=== PATIENT | male | born 1940 | race Caucasian/White ===

== ENCOUNTER 2018-04-02 14:15 | Emergency (ER) | payer MEDICAID, MEDICARE ==
[2018-04-02] MEDS ORDERED: IPRATROPIUM/ALBUTEROL 0.5-2.5 MG/3 ML AMPUL NEB ONE (14:32)
--- NOTE | 2018-04-02 14:33 | ER Document Report ---
ED General - General Stated Complaint: WEAKNESS Time Seen by Provider: 04/02/18 14:20 Notes: Patient is a 77-year-old male with COPD, CAD that presents to the emergency department for chief complaint of shortness of breath and leg swelling. Patient states he stopped taking his medications several months ago, stating that he did not want to take them, stating that he would might as well than take all these medications. His daughter is with him, he states that he came in because his was "nagging him", but he denies having any pain at this time, he feels mildly short of breath, he has had increased swelling in his lower extremities, making it difficult for him to walk. He has been rather weak according to the patient's daughter as well. He is on medication for depression, which he stopped taking, he is not taking his aspirin, or his antihypertensive medications, he is on nebulizer treatments which she has been doing in addition to his 4 L of oxygen that he wears 24 hours a day for his COPD. Past Medical History: COPD, CAD, hypertension, hyperlipidemia Past Surgical History: PCI with stenting x5 Social History: Former smoker, denies alcohol or drug use. Family History: Reviewed and noncontributory for presenting illness Allergies: Reviewed, see documented allergy list. REVIEW OF SYSTEMS: Other than noted above, the 12 point review of systems was reviewed with the patient and were negative, all pertinent findings are included in the HPI. PHYSICAL EXAMINATION: Vital signs reviewed, nursing noted reviewed. GENERAL: Disheveled appearing male, mild respiratory distress and increased work of breathing HEAD: Atraumatic, normocephalic. EYES: Eyes appear normal, extraocular movements intact, sclera anicteric, conjunctiva are normal. ENT: nares patent, oropharynx clear without exudates. Moist mucous membranes. NECK: Normal range of motion, supple without lymphadenopathy LUNGS: Lung sounds are diminished, with significant inspiratory and expiratory wheezing noted throughout all lung santos. HEART: Heart rate tachycardic, regular rhythm. ABDOMEN: Soft, nontender, normoactive bowel sounds. No rebound, guarding, or rigidity. No masses appreciated. EXTREMITIES: Nontender, good range of motion, bilateral lower extremity edema, equal bilaterally,1+ pitting to the distal tibias. NEUROLOGICAL: No focal neurological deficits. Moves all extremities spontaneously Motor and sensory grossly intact on exam. PSYCH: Normal mood, normal affect. SKIN: Warm, Dry, normal turgor, small areas of excoriations noted to the lower extremities, no signs of cellulitis. - Related Data Allergies/Adverse Reactions: No Known Allergies Allergy (Verified 02/11/12 14:25) Past Medical History - Social History Smoking Status: Current Every Day Smoker Family History: Reviewed & Not Pertinent - Past Medical History Cardiac Medical History: Reports: Hx Heart Attack, Hx Hypercholesterolemia, Hx Hypertension Pulmonary Medical History: Reports: Hx COPD, Hx Pneumonia, Hx Sleep Apnea Denies: Hx Tuberculosis Renal/ Medical History: Reports: Hx Kidney Stones Malignancy Medical History: Reports Hx Colorectal Cancer Past Surgical History: Reports: Hx Bowel Surgery - colon cancer - removed, Hx Cardiac Surgery - 4 stents. Denies: Hx Pacemaker - Immunizations Hx Diphtheria, Pertussis, Tetanus Vaccination: No Physical Exam - Vital signs Vitals: Resp BP Pulse Ox 28 H 135/61 H 86 L 04/02/18 14:28 04/02/18 14:28 04/02/18 14:28 Course - Re-evaluation Re-evalutation: Patient seen and examined vital signs reviewed. Initially hypoxic, but he was only on 2 L, the patient was on 4 L at home, once the patient was placed on his 4 L of oxygen by nasal cannula, he was no longer hypoxic. Laboratory data and imaging were ordered as appropriate for the patient's presenting symptoms and complaint, with consideration of any critical or life threatening conditions that may be associated with their obtained history and exam as noted above. Patient was treated with IV Lasix for his peripheral edema Results were reviewed when available and demonstrated unchanged chest x-ray from prior, COPD changes, without pulmonary edema, blood work demonstrated mild elevation in his creatinine, but when compared to prior, this was not off from his baseline, electrolytes demonstrated a very mild hypernatremia, again but otherwise unremarkable. No leukocytosis. ABG demonstrated well compensated respiratory acidosis, troponin was 0.028, with a very and BNP. The patient was re-evaluated and was stable, on his regular home oxygen and 4 L, I discussed results of testing with the patient's daughter and the patient at bedside, he does not have any medical bold diagnosis although they are asking if he could be admitted overnight, stated the patient needs to be back on his home medications particularly 6, which she was given a prescription for it to start taking again, advised follow-up with his primary care physician which she does have a good relationship with, and advised to call for an appointment tomorrow, the patient did previously have home health care, but his had kicked the home health manager of care out, I strongly encouraged that the patient would need this, or he may need to be placed in a custodial facility, or he should consider looking into palliative care, if he does not want to take these medications. He is alert and oriented x4 at this time, and capable of making these decisions. Evaluation was most consistent with peripheral edema, mild hyponatremia, medical noncompliance. Results were discussed with the patient at this point, after careful consideration I feel that that patient can be discharged from the emergency department, the patient was educated treatments and reasons to return to the emergency department based on their presumed diagnosis as noted above, they were advised to followup with a primary care physician in 2-3 days. Patient was agreeable to plan of care. *Note is created using voice recognition software and may contain spelling, syntax or grammatical errors. Laboratory 04/02/18 04/02/18 04/02/18 14:35 14:35 14:35 WBC 4.7 RBC 4.03 L Hgb 11.7 L Hct 34.4 L MCV 86 MCH 28.9 MCHC 33.8 RDW 14.7 H Plt Count 102 L Total Counted 100 Seg Neutrophils % Not Reportable Seg Neuts % (Manual) 89 H Lymphocytes % Not Reportable Lymphocytes % (Manual) 8 L Monocytes % Not Reportable Monocytes % (Manual) 3 Eosinophils % Not Reportable Eosinophils % (Manual) 0 Basophils % Not Reportable Basophils % (Manual) 0 Absolute Neutrophils Not Reportable Abs Neuts (Manual) 4.2 Absolute Lymphocytes Not Reportable Abs Lymphs (Manual) 0.4 L Absolute Monocytes Not Reportable Abs Monocytes (Manual) 0.1 Absolute Eosinophils Not Reportable Absolute Eos (Manual) 0.0 Absolute Basophils Not Reportable Abs Basophils (Manual) 0.0 Toxic Granulation SLIGHT Toxic Vacuolation PRESENT Platelet Comment ADEQUATE Anisocytosis SLIGHT PT 14.2 INR 1.04 Carbonic Acid HCO3/H2CO3 Ratio ABG pH ABG pCO2 ABG pO2 ABG HCO3 ABG Total CO2 ABG O2 Saturation ABG Base Excess FiO2 Sodium 134.4 L Potassium 4.4 Chloride 92 L Carbon Dioxide 35 H Anion Gap 7 BUN 24 H Creatinine 1.26 H Est GFR ( Amer) > 60 Est GFR (Non-Af Amer) 56 L Glucose 99 POC Glucose Lactic Acid Calcium 7.9 L Total Bilirubin 0.6 Direct Bilirubin 0.4 Neonat Total Bilirubin Not Reportable Neonat Direct Bilirubin Not Reportable Neonat Indirect Bili Not Reportable AST 74 H ALT 30 Alkaline Phosphatase 101 Troponin I NT-Pro-B Natriuret Pep Total Protein 6.4 Albumin 3.6 Urine Color Urine Appearance Urine pH Ur Specific [place] Urine Protein Urine Glucose (UA) Urine Ketones Urine Blood Urine Nitrite Urine Bilirubin Urine Urobilinogen Ur Leukocyte Esterase Urine WBC (Auto) Urine RBC (Auto) Squamous Epi Cells Auto Urine Mucus (Auto) Urine Ascorbic Acid 04/02/18 04/02/18 04/02/18 14:35 14:35 14:51 WBC RBC Hgb Hct MCV MCH MCHC RDW Plt Count Total Counted Seg Neutrophils % Seg Neuts % (Manual) Lymphocytes % Lymphocytes % (Manual) Monocytes % Monocytes % (Manual) Eosinophils % Eosinophils % (Manual) Basophils % Basophils % (Manual) Absolute Neutrophils Abs Neuts (Manual) Absolute Lymphocytes Abs Lymphs (Manual) Absolute Monocytes Abs Monocytes (Manual) Absolute Eosinophils Absolute Eos (Manual) Absolute Basophils Abs Basophils (Manual) Toxic Granulation Toxic Vacuolation Platelet Comment Anisocytosis PT INR Carbonic Acid HCO3/H2CO3 Ratio ABG pH ABG pCO2 ABG pO2 ABG HCO3 ABG Total CO2 ABG O2 Saturation ABG Base Excess FiO2 Sodium Potassium Chloride Carbon Dioxide Anion Gap BUN Creatinine Est GFR ( Amer) Est GFR (Non-Af Amer) Glucose POC Glucose 108 Lactic Acid 1.3 Calcium Total Bilirubin Direct Bilirubin Neonat Total Bilirubin Neonat Direct Bilirubin Neonat Indirect Bili AST ALT Alkaline Phosphatase Troponin I 0.028 NT-Pro-B Natriuret Pep 520 H Total Protein Albumin Urine Color Urine Appearance Urine pH Ur Specific [place] Urine Protein Urine Glucose (UA) Urine Ketones Urine Blood Urine Nitrite Urine Bilirubin Urine Urobilinogen Ur Leukocyte Esterase Urine WBC (Auto) Urine RBC (Auto) Squamous Epi Cells Auto Urine Mucus (Auto) Urine Ascorbic Acid 04/02/18 04/02/18 15:06 15:55 WBC RBC Hgb Hct MCV MCH MCHC RDW Plt Count Total Counted Seg Neutrophils % Seg Neuts % (Manual) Lymphocytes % Lymphocytes % (Manual) Monocytes % Monocytes % (Manual) Eosinophils % Eosinophils % (Manual) Basophils % Basophils % (Manual) Absolute Neutrophils Abs Neuts (Manual) Absolute Lymphocytes Abs Lymphs (Manual) Absolute Monocytes Abs Monocytes (Manual) Absolute Eosinophils Absolute Eos (Manual) Absolute Basophils Abs Basophils (Manual) Toxic Granulation Toxic Vacuolation Platelet Comment Anisocytosis PT INR Carbonic Acid 1.80 H HCO3/H2CO3 Ratio 19:1 ABG pH 7.38 ABG pCO2 59.7 H ABG pO2 104.4 H ABG HCO3 34.8 H ABG Total CO2 36.7 H ABG O2 Saturation 97.6 ABG Base Excess 8.0 FiO2 4L Sodium Potassium Chloride Carbon Dioxide Anion Gap BUN Creatinine Est GFR ( Amer) Est GFR (Non-Af Amer) Glucose POC Glucose Lactic Acid Calcium Total Bilirubin Direct Bilirubin Neonat Total Bilirubin Neonat Direct Bilirubin Neonat Indirect Bili AST ALT Alkaline Phosphatase Troponin I NT-Pro-B Natriuret Pep Total Protein Albumin Urine Color YELLOW Urine Appearance CLOUDY Urine pH 5.0 Ur Specific [place] 1.019 Urine Protein 30 H Urine Glucose (UA) NEGATIVE Urine Ketones NEGATIVE Urine Blood MODERATE H Urine Nitrite NEGATIVE Urine Bilirubin NEGATIVE Urine Urobilinogen 2.0 H Ur Leukocyte Esterase NEGATIVE Urine WBC (Auto) 6 Urine RBC (Auto) 2 Squamous Epi Cells Auto 1 Urine Mucus (Auto) FEW Urine Ascorbic Acid NEGATIVE - Vital Signs Vital signs: Temp Pulse Resp BP Pulse Ox 99.6 F 24 H 127/72 H 97 04/02/18 16:41 04/02/18 18:23 04/02/18 18:23 04/02/18 18:23 - Laboratory Result Diagrams: 04/02/18 14:35 04/02/18 14:35 Laboratory results interpreted by me: 04/02/18 04/02/18 04/02/18 14:35 14:35 14:35 RBC 4.03 L Hgb 11.7 L Hct 34.4 L RDW 14.7 H Plt Count 102 L Seg Neuts % (Manual) 89 H Lymphocytes % (Manual) 8 L Abs Lymphs (Manual) 0.4 L Carbonic Acid ABG pCO2 ABG pO2 ABG HCO3 ABG Total CO2 Sodium 134.4 L Chloride 92 L Carbon Dioxide 35 H BUN 24 H Creatinine 1.26 H Est GFR (Non-Af Amer) 56 L Calcium 7.9 L AST 74 H NT-Pro-B Natriuret Pep 520 H Urine Protein Urine Blood Urine Urobilinogen 04/02/18 04/02/18 15:06 15:55 RBC Hgb Hct RDW Plt Count Seg Neuts % (Manual) Lymphocytes % (Manual) Abs Lymphs (Manual) Carbonic Acid 1.80 H ABG pCO2 59.7 H ABG pO2 104.4 H ABG HCO3 34.8 H ABG Total CO2 36.7 H Sodium Chloride Carbon Dioxide BUN Creatinine Est GFR (Non-Af Amer) Calcium AST NT-Pro-B Natriuret Pep Urine Protein 30 H Urine Blood MODERATE H Urine Urobilinogen 2.0 H Discharge - Discharge Clinical Impression: Peripheral edema, Medical non-compliance, Hyponatremia Condition: Stable Disposition: HOME, SELF-CARE Instructions: Edema, Peripheral ([facility]) Additional Instructions: Please return to the emergency department if you have any worsening, or concern of your symptoms. Please return to the emergency department if you develop chest pain, difficulty breathing, severe abdominal pain, or ongoing vomiting. Please follow-up with your primary care physician in 2-3 days and any other recommended physicians. If prescribed, take all medications as directed. If you have any questions or concerns do not hesitate to return the emergency department for evaluation. Please follow-up with Dr. Ordonez, call for appointment tomorrow, to specifically discuss home health care as I think he would benefit from this jen tly. Prescriptions: Furosemide [Lasix 20 mg Tablet] 20 mg PO DAILY #7 tablet Referrals: ROCK ORDONEZ DO [Primary Care Provider] - Follow up as needed
[2018-04-02] MEDS ORDERED: METHYLPREDNISOLONE INJ 125 MG/2 ML SDV IV ONE (14:57)
[2018-04-02 15:03] LABS: INTERNATIONAL RATION (INR) 1.04; PROTHROMBIN TIME 14.2 SEC (11.4-15.4)
[2018-04-02 15:04] LABS: HEMATOCRIT 34.4 % (37.9-51.0); HEMOGLOBIN 11.7 g/dL (13.5-17.0); MEAN CORPUSCULAR HEMOGLOBIN 28.9 pg (27.0-33.4); MEAN CORPUSCULAR HGB CONC 33.8 g/dL (32.0-36.0); MEAN CORPUSCULAR VOLUME 86 fl (80-97); PLATELET COUNT 102 10^3/uL (150-450); RED BLOOD COUNT 4.03 10^6/uL (4.35-5.55); RED CELL DISTRIBUTION WIDTH 14.7 % (11.5-14.0); WHITE BLOOD COUNT 4.7 10^3/uL (4.0-10.5)
[2018-04-02 15:15] LABS: ALANINE AMINOTRANSFERASE 30 U/L (21-72); ALBUMIN 3.6 g/dL (3.5-5.0); ALKALINE PHOSPHATASE 101 U/L (38-126); ANION GAP 7 (5-19); ASPARTATE AMINO TRANSFERASE 74 U/L (17-59); BILIRUBIN,DIRECT 0.4 mg/dL (0.0-0.4); BILIRUBIN,TOTAL 0.6 mg/dL (0.2-1.3); BLOOD UREA NITROGEN 24 mg/dL (7-20); CALCIUM 7.9 mg/dL (8.4-10.2); CARBON DIOXIDE 35 mmol/L (22-30); CHLORIDE 92 mmol/L (98-107); GLUCOSE 99 mg/dL (75-110); POTASSIUM 4.4 mmol/L (3.6-5.0); SODIUM 134.4 mmol/L (137-145); TOTAL PROTEIN 6.4 g/dL (6.3-8.2)
[2018-04-02 15:20] LABS: ARTERIAL BLOOD FIO2 4L; ARTERIAL BLOOD HCO3 34.8 mmol/L (20-24); ARTERIAL BLOOD O2 SATURATION 97.6 % (94-98); ARTERIAL BLOOD PCO2 59.7 mmHg (35-45); ARTERIAL BLOOD PH 7.38 (7.35-7.45); ARTERIAL BLOOD PO2 104.4 mmHg (80-100); ARTERIAL BLOOD TOTAL CO2 36.7 mmol/L (23-27)
--- NOTE | 2018-04-02 15:24 | RADIOLOGY REPORT (SQ) ---
EXAM DESCRIPTION: CHEST SINGLE VIEW COMPLETED DATE/TIME: 04/02/2018 3:07 pm REASON FOR STUDY: shortness of breath COMPARISON: 2013. NUMBER OF VIEWS: One view. TECHNIQUE: Single frontal radiographic view of the chest acquired. LIMITATIONS: None. FINDINGS: LUNGS AND PLEURA: No opacities, masses or pneumothorax. No pleural effusion. Attenuated bl ood vessels and flattened karen-diaphragms. MEDIASTINUM AND HILAR STRUCTURES: Stable contours. Uncoiled aorta. HEART AND VASCULAR STRUCTURES: Stable heart size, slightly prominent. No congestive failure. BONES: No acute findings. HARDWARE: None in the chest. OTHER: No other significant finding. IMPRESSION: COPD. NO ACUTE RADIOGRAPHIC FINDING IN THE CHEST. TECHNICAL DOCUMENTATION: JOB ID: [id number] [facility]- All Rights Reserved Reading location - IP/workstation name: [email or web address]
[2018-04-02 15:25] LABS: ABSOLUTE LYMPHOCYTES# (MANUAL) 0.4 10^3/uL (0.5-4.7); ABSOLUTE MONOCYTES # (MANUAL) 0.1 10^3/uL (0.1-1.4); ABSOLUTE NEUTROPHILS# (MANUAL) 4.2 10^3/uL (1.7-8.2); BASOPHILS % (MANUAL) 0 % (0-2); EOSINOPHILS % (MANUAL) 0 % (0-6); LYMPHOCYTES % (MANUAL) 8 % (13-45); MONOCYTES % (MANUAL) 3 % (3-13); SEGMENTED NEUTROPHILS % (MAN) 89 % (42-78); TOTAL CELLS COUNTED 100; TROPONIN I 0.028 ng/mL
[2018-04-02 15:26] LABS: ANISOCYTOSIS SLIGHT; PLATELET COMMENT ADEQUATE; TOXIC GRANULATION SLIGHT; TOXIC VACUOLATION PRESENT
[2018-04-02] MEDS ORDERED: ACETAMINOPHEN 325 MG TABLET PO ONE (15:34)
[2018-04-02] MEDS ORDERED: FUROSEMIDE INJ/PF 40 MG/4 ML SDV IV ONE (16:17)
[2018-04-02 16:21] LABS: APPEARANCE,URINE CLOUDY; BILIRUBIN,URINE NEGATIVE (NEGATIVE); COLOR,URINE YELLOW; GLUCOSE, URINE NEGATIVE (NEGATIVE); KETONES,URINE NEGATIVE (NEGATIVE); LEUKOCYTE ESTERASE,URINE NEGATIVE (NEGATIVE); NITRITE,URINE NEGATIVE (NEGATIVE); PROTEIN,URINE 30 mg/dL (NEGATIVE); URINE SPECIFIC GRAVITY 1.019
[2018-04-02 18:29] VITALS: BP 127/72
--- NOTE | 2018-04-03 06:52 | EKG REPORT ---
SEVERITY:- OTHERWISE NORMAL ECG - SINUS TACHYCARDIA : Confirmed by: Kristel Joyner 03-Apr-2018 06:52:14
== END 2018-04-02 18:36 | disposition home or self-care (01) ==
LOC: ER 14:15
DX: R60.9 Edema, unspecified (principal); E87.1 Hypo-osmolality and hyponatremia; R53.1 Weakness; Z91.14 Patient's other noncompliance with medication regimen; J44.9 Chronic obstructive pulmonary disease, unspecified; I25.10 Atherosclerotic heart disease of native coronary artery without angina pectoris; I10 Essential (primary) hypertension; E78.5 Hyperlipidemia, unspecified; F17.200 Nicotine dependence, unspecified, uncomplicated; I25.2 Old myocardial infarction; Z87.442 Personal history of urinary calculi; Z85.038 Personal history of other malignant neoplasm of large intestine
CPT/HCPCS: 93005; 94640; 99285; 96374; 96375; 36415; 87040; 87086; 82962; 82803; 85025; 85610; 80053; 81001; 84484; 83605; 83880; 71045; 93010; A9270 ×2; J1940; J2930; J7620

== ENCOUNTER 2018-05-16 14:34 | Inpatient (IN) | payer MEDICARE ==
[2018-05-16] MEDS ORDERED: NORMAL SALINE 500 ML IV ONE (14:49)
[2018-05-16] MEDS ORDERED: METHYLPREDNISOLONE INJ 125 MG/2 ML SDV IV ONE (14:49)
[2018-05-16] MEDS ORDERED: IPRATROPIUM/ALBUTEROL 0.5-2.5 MG/3 ML AMPUL NEB ONE (14:49)
--- NOTE | 2018-05-16 14:49 | ER Document Report ---
ED General - General Stated Complaint: DIFFICULTY BREATHING Time Seen by Provider: 05/16/18 14:40 Mode of Arrival: Medic Information source: Patient, Emergency Med Personnel Notes: This is a 77-year-old man with a history of COPD, anemia, remote history of colon cancer who is brought in by EMS because of shortness of breath. Patient is normally on 2 L nasal cannula. He has required increasing oxygen at [facility]. Patient is TRAVEL OUTSIDE OF THE [place] IN LAST 30 DAYS: No - HPI Onset: Just prior to arrival Onset/Duration: Gradual Quality of pain: No pain Severity: None Pain Level: Denies Associated symptoms: Shortness of breath. denies: Chest pain, Diarrhea, Fever, Nausea, Vomiting Exacerbated by: Movement Relieved by: Remaining still Similar symptoms previously: Yes Recently seen / treated by doctor: Yes - Related Data Allergies/Adverse Reactions: No Known Allergies Allergy (Verified 02/11/12 14:25) Past Medical History - General Information source: Patient, Relative - Social History Smoking Status: Former Smoker Cigarette use (# per day): No - Quit Chew tobacco use (# tins/day): No Smoking Education Provided: No Frequency of alcohol use: None Drug Abuse: None Lives with: Family Family History: Reviewed & Not Pertinent Patient has suicidal ideation: No Patient has homicidal ideation: No - Past Medical History Cardiac Medical History: Reports: Hx Heart Attack, Hx Hypercholesterolemia, Hx Hypertension Pulmonary Medical History: Reports: Hx COPD, Hx Pneumonia, Hx Sleep Apnea Denies: Hx Tuberculosis Renal/ Medical History: Reports: Hx Kidney Stones. Denies: Hx Peritoneal Dialysis Malignancy Medical History: Reports Hx Colorectal Cancer Past Surgical History: Reports: Hx Bowel Surgery - colon cancer - removed, Hx Cardiac Surgery - 4 stents. Denies: Hx Pacemaker - Immunizations Hx Diphtheria, Pertussis, Tetanus Vaccination: No Review of Systems - Review of Systems Constitutional: denies: Chills, Fever EENT: No symptoms reported Cardiovascular: denies: Chest pain, Palpitations, Heart racing Respiratory: Cough, Short of breath, Wheezing Gastrointestinal: denies: Abdomen distended, Abdominal pain, Diarrhea Genitourinary: No symptoms reported Male Genitourinary: No symptoms reported Musculoskeletal: No symptoms reported Skin: No symptoms reported Hematologic/Lymphatic: No symptoms reported Neurological/Psychological: No symptoms reported Physical Exam - Vital signs Vitals: Pulse Ox 98 05/16/18 14:50 Notes: Physical exam: GENERAL: 77-year-old man, alert and oriented x3, severe respiratory distress HEAD: Atraumatic, normocephalic. EYES: Pupils equal round and reactive to light, extraocular movements intact, sclera anicteric, conjunctiva are normal. ENT: TMs normal, nares patent, oropharynx clear without exudates. Moist mucous membranes. NECK: Normal range of motion, supple without obvious mass or JVD. LUNGS: Use wheezing bilaterally with accessory muscle use. HEART: Regular rate and rhythm without murmurs, rubs or gallops. ABDOMEN: Soft, normoactive bowel sounds. No tenderness to palpation. No guarding, no rebound. No masses appreciated. EXTREMITIES: Normal range of motion, no pitting or edema. No clubbing or cyanosis. NEUROLOGICAL: Cranial nerves II through XII grossly intact. Normal speech, moving all extremities. PSYCH: Normal mood, normal affect. SKIN: Warm, Dry, normal turgor, no rashes or lesions noted. Course - Re-evaluation Re-evalutation: 05/16/18 16:50 Note: EKG shows atrial fibrillation. I question the patient's and she thinks that he has had atrial fibrillation in the past. - Vital Signs Vital signs: Temp Pulse Resp BP Pulse Ox 98.2 F 26 H 108/70 99 05/16/18 14:54 05/16/18 17:48 05/16/18 17:48 05/16/18 17:48 - Laboratory Result Diagrams: 05/16/18 15:05 05/16/18 15:05 Laboratory results interpreted by me: 05/16/18 05/16/18 05/16/18 15:05 15:05 15:05 RBC 3.50 L Hgb 9.7 L Hct 30.0 L RDW 16.4 H Carbon Dioxide 33 H Creatinine 1.38 H Est GFR (Non-Af Amer) 50 L Glucose 120 H Calcium 8.3 L ALT 18 L Creatine Kinase 22 L NT-Pro-B Natriuret Pep 1370 H Albumin 2.9 L - Diagnostic Test Radiology reviewed: Image reviewed, Reports reviewed - Chest x-ray shows infiltrate in the right base - EKG Interpretation by Me Rate: Normal Rhythm: NSR - EKG shows atrial fibrillation with a ventricular rate of 108 Critical Care Note - Critical Care Note Total time excluding time spent on procedures (mins): 60 Discharge - Discharge Clinical Impression: COPD (chronic obstructive pulmonary disease) Qualifiers: COPD type: COPD with acute lower respiratory infection Qualified Code(s): J44.0 - Chronic obstructive pulmonary disease with acute lower respiratory infection Pneumonia Qualifiers: Laterality: right Lung location: lower lobe of lung Condition: Stable Disposition: ADMITTED INPATIENT Admitting Provider: Hospitalist - Dr Bell Unit Admitted: Telemetry
--- NOTE | 2018-05-16 15:19 | RADIOLOGY REPORT (SQ) ---
EXAM DESCRIPTION: CHEST SINGLE VIEW COMPLETED DATE/TIME: 05/16/2018 3:05 pm REASON FOR STUDY: sob COMPARISON: Chest films 04/02/2018, 11/06/2013, 02/11/2012 EXAM PARAMETERS: NUMBER OF VIEWS: One view. TECHNIQUE: Single frontal radiographic view of the chest acquired. RADIATION DOSE: NA LIMITATIONS: None. FINDINGS: LUNGS AND PLEURA: Trace right pleural fluid with right basilar alveolar and interstitial i nfiltrate, pneumonia versus asymmetric pulmonary edema. Left lung grossly clear. No left pleural effusion. No right or left pneumothorax MEDIASTINUM AND HILAR STRUCTURES: No masses. Contour normal. HEART AND VASCULAR STRUCTURES: Heart normal in size. Normal vasculature. BONES: No acute findings. HARDWARE: None in the chest. OTHER: No other significant finding. IMPRESSION: Trace right pleural effusion with right lower lobe alveolar and interstitial infiltrates , edema versus pneumonia TECHNICAL DOCUMENTATION: JOB ID: [id number] [employer]- All Rights Reserved Reading location - IP/workstation name: [email or web address]
[2018-05-16 15:30] LABS: HEMOGLOBIN 9.7 g/dL (13.5-17.0); MEAN CORPUSCULAR HEMOGLOBIN 27.6 pg (27.0-33.4); MEAN CORPUSCULAR HGB CONC 32.3 g/dL (32.0-36.0); MEAN CORPUSCULAR VOLUME 86 fl (80-97); PLATELET COUNT 204 10^3/uL (150-450); RED CELL DISTRIBUTION WIDTH 16.4 % (11.5-14.0); WHITE BLOOD COUNT 8.1 10^3/uL (4.0-10.5)
[2018-05-16 15:49] LABS: ABSOLUTE LYMPHOCYTES# (MANUAL) 1.2 10^3/uL (0.5-4.7); ABSOLUTE MONOCYTES # (MANUAL) 1.1 10^3/uL (0.1-1.4); ABSOLUTE NEUTROPHILS# (MANUAL) 5.8 10^3/uL (1.7-8.2); BASOPHILS % (MANUAL) 0 % (0-2); EOSINOPHILS % (MANUAL) 1 % (0-6); LYMPHOCYTES % (MANUAL) 15 % (13-45); MONOCYTES % (MANUAL) 13 % (3-13); SEGMENTED NEUTROPHILS % (MAN) 71 % (42-78); TOTAL CELLS COUNTED 100
[2018-05-16 15:50] LABS: ANISOCYTOSIS 1+; PLATELET COMMENT ADEQUATE; POIKILOCYTOSIS SLIGHT; TOXIC GRANULATION SLIGHT
[2018-05-16 15:51] LABS: ALANINE AMINOTRANSFERASE 18 U/L (21-72); ALBUMIN 2.9 g/dL (3.5-5.0); ALKALINE PHOSPHATASE 116 U/L (38-126); ANION GAP 10 (5-19); ASPARTATE AMINO TRANSFERASE 20 U/L (17-59); BILIRUBIN,DIRECT 0.3 mg/dL (0.0-0.4); BILIRUBIN,TOTAL 0.4 mg/dL (0.2-1.3); BLOOD UREA NITROGEN 19 mg/dL (7-20); CALCIUM 8.3 mg/dL (8.4-10.2); CARBON DIOXIDE 33 mmol/L (22-30); CHLORIDE 98 mmol/L (98-107); CREATINE KINASE 22 U/L (55-170); GLUCOSE 120 mg/dL (75-110); POTASSIUM 4.3 mmol/L (3.6-5.0); SODIUM 141.4 mmol/L (137-145); TOTAL PROTEIN 6.5 g/dL (6.3-8.2)
[2018-05-16 16:03] LABS: CREATINE KINASE MB 0.42 ng/mL (<4.55); NT PRO BNP 1370 pg/mL (<450)
[2018-05-16 16:12] LABS: TROPONIN I < 0.012 ng/mL
[2018-05-16] MEDS ORDERED: CEFTRIAXONE 1 GM/D5W RTU 1 GM/50 ML RTUPB IV ONE (16:37)
[2018-05-16] MEDS ORDERED: AZITHROMYCIN INJ 500 MG VIAL IV ONE (16:38)
[2018-05-16] MEDS ORDERED: LEVALBUTEROL HCL NEB 0.63 MG/3 ML AMPUL NEB PRN (17:10)
--- NOTE | 2018-05-16 17:30 | PDOC H&P ---
History of Present Illness Admission Date/PCP: ROSANNA LOPEZ MD History of Present Illness: EDIN MAX is a 77 year old male who was sent from [place] ostensibly with shortness of breath, but he says he thinks he was having "an anxiety attack." He denies any fevers. He denies any productive cough. I was told that he was wheezing, but whenever I saw him in the emergency department he was not wheezing at all. He was in atrial fibrillation on the monitor, and I cannot find any history of atrial fibrillation in the record, but he does have EKGs that show frequent PACs. He did get a nebulizer treatment in the ER. He says he feels fine now and does not want to stay. His family has pressured him into staying overnight. Past Medical History Cardiac Medical History: Reports: Myocardial Infarction, Hyperlipidema, Hypertension Pulmonary Medical History: Reports: Chronic Obstructive Pulmonary Disease (COPD) , Pneumonia, Sleep Apnea Denies: Tuberculosis Malignancy Medical History: Reports: Colorectal Cancer Past Surgical History Past Surgical History: Denies: Pacemaker Social History Smoking Status: Never Smoker Frequency of Alcohol Use: None Hx Recreational Drug Use: No Hx Prescription Drug Abuse: No Family History Family History: Reviewed & Not Pertinent Parental Family History Reviewed: Yes - Noncontributory Children Family History Reviewed: Yes - Noncontributory Sibling(s) Family History Reviewed.: Yes - Noncontributory Medication/Allergy Home Medications: Albuterol Sulfate [Albuterol Sulfate 2.5mg/3 mL] 0 mg NEB Q4 PRN 02/11/12 Albuterol Sulfate [Proair HFA] 1 - 2 puff IH Q4 PRN 02/11/12 Aspirin [Ecotrin 81 mg EC Tablet] 81 mg PO DAILY 02/11/12 Cyanocobalamin (Vitamin B-12) [Vitamin B-12 1000 mcg Tablet] 500 mcg PO DAILY 02/11/12 Ferrous Sulfate [Iron] 325 mg PO DAILY 02/11/12 Furosemide [Lasix 20 mg Tablet] 20 mg PO DAILY 02/11/12 Multivitamin [Tab-A-Amber (Multiple Vitamin) Tablet] 1 tab PO DAILY 02/11/12 Simvastatin [Zocor 20 mg Tablet] 20 mg PO QHS 02/11/12 Vitamin E (Dl, Acetate) [Vitamin E 400 Unit Capsule] 400 unit PO DAILY 02/11/12 Gabapentin [Neurontin 300 mg Capsule] 600 mg PO TID 11/06/13 Hydrocodone/Acetaminophen [Vicodin 5-300 mg Tablet] 2 tab PO Q6HP PRN 11/06/13 Metoprolol Tartrate [Lopressor 25 mg Tablet] 25 mg PO BID 11/06/13 Atorvastatin Calcium [Lipitor 20 mg Tablet] 20 mg PO QHS 04/02/18 Carbidopa/Levodopa [Sinemet 25-250 mg Tablet] 1 tab PO TID 04/02/18 Cyproheptadine HCl 4 mg PO BID 04/02/18 Furosemide [Lasix 20 mg Tablet] 20 mg PO DAILY #7 tablet 04/02/18 Metoprolol Succinate [Toprol Xl] 25 mg PO DAILY 04/02/18 Ropinirole HCl 1 tab PO QHS 04/02/18 Trazodone HCl 50 mg PO QHS 04/02/18 Venlafaxine HCl 1 tab PO BID 04/02/18 Allergies/Adverse Reactions: No Known Allergies Allergy (Verified 02/11/12 14:25) Review of Systems All systems: reviewed and no additional remarkable complaints except as stated - 10 point review of systems was conducted with the patient and was negative except as noted above Physical Exam Vital Signs: Temp Pulse Resp BP Pulse Ox 98.2 F 19 95/82 L 100 05/16/18 14:54 05/16/18 16:01 05/16/18 16:00 05/16/18 16:01 Intake & Output 05/15/18 05/16/18 05/17/18 06:59 06:59 06:59 Intake Total 500 Balance 500 Weight 80.739 kg General appearance: PRESENT: no acute distress, cooperative, disheveled, hard of hearing Head exam: PRESENT: atraumatic, normocephalic Eye exam: PRESENT: EOMI, PERRLA. ABSENT: conjunctival injection, nystagmus, scleral icterus Ear exam: PRESENT: normal external ear exam Mouth exam: PRESENT: moist, neck supple Teeth exam: PRESENT: poor dentation Throat exam: ABSENT: post pharyngeal erythema Neck exam: PRESENT: full ROM. ABSENT: carotid bruit, JVD, lymphadenopathy, meningismus, tenderness, thyromegaly Respiratory exam: PRESENT: clear to auscultation vickie, decreased breath sounds, symmetrical, unlabored. ABSENT: accessory muscle use, prolonged expiratory phas, rales, rhonchi, stridor, tachypnea, wheezes Cardiovascular exam: PRESENT: irregular rhythm Vascular exam: PRESENT: normal capillary refill GI/Abdominal exam: PRESENT: normal bowel sounds, soft. ABSENT: distended, guarding, rebound, tenderness Extremities exam: ABSENT: clubbing, pedal edema Musculoskeletal exam: PRESENT: normal inspection. ABSENT: deformity Neurological exam: PRESENT: alert, awake, oriented to person, oriented to place, oriented to situation, CN II-XII grossly intact, other - Tremulous Psychiatric exam: PRESENT: appropriate affect, normal mood Skin exam: PRESENT: dry, warm, other - He had a lot of what looked like actinic keratoses on his face and upper extremities Results Laboratory Results: 05/16/18 15:05 05/16/18 15:05 05/16/18 05/16/18 15:05 15:05 WBC 8.1 RBC 3.50 L Hgb 9.7 L Hct 30.0 L MCV 86 MCH 27.6 MCHC 32.3 RDW 16.4 H Plt Count 204 Seg Neutrophils % Not Reportable Lymphocytes % Not Reportable Monocytes % Not Reportable Eosinophils % Not Reportable Basophils % Not Reportable Absolute Neutrophils Not Reportable Absolute Lymphocytes Not Reportable Absolute Monocytes Not Reportable Absolute Eosinophils Not Reportable Absolute Basophils Not Reportable Sodium 141.4 Potassium 4.3 Chloride 98 Carbon Dioxide 33 H Anion Gap 10 BUN 19 Creatinine 1.38 H Est GFR ( Amer) > 60 Est GFR (Non-Af Amer) 50 L Glucose 120 H Calcium 8.3 L Total Bilirubin 0.4 AST 20 ALT 18 L Alkaline Phosphatase 116 Total Protein 6.5 Albumin 2.9 L 05/16/18 05/16/18 15:05 15:05 Creatine Kinase 22 L CK-MB (CK-2) 0.42 Troponin I < 0.012 NT-Pro-B Natriuret Pep 1370 H Impressions: Chest X-Ray 05/16/18 14:40 IMPRESSION: Trace right pleural effusion with right lower lobe alveolar and interstitial infiltrates, edema versus pneumonia Assessment & Plan - Diagnosis (1) Pneumonia Qualifiers: Laterality: right Lung location: lower lobe of lung Is this a current diagnosis for this admission?: Yes Plan: He had what looked like a possible infiltrate on chest x-ray, and another hears family a great historians, but the history does not really suggest very strongly pneumonia. However because I did not get to see him before he received any treatments, keep him overnight and watch him and put him on some antibiotics. If he does okay overnight I may send him back to [facility] tomorrow. (2) Atrial fibrillation Qualifiers: Atrial fibrillation type: unspecified Qualified Code(s): I48.91 - Unspecified atrial fibrillation Is this a current diagnosis for this admission?: Yes Plan: He is on metoprolol at home and working to continue that, but is not anticoagulated. He received a neb treatment and that may have increased his rate, and with his frequent PACs it may make it look like he is got atrial fibrillation on EKG. We will put him on a bus driver/monitor and watch him overn ight. If his rate is not improved and his rhythm has not gotten a little bit easier to see, due to the above factors and because of his tremulousness, will probably have to look into this little bit further. - Time Time Spent: 50 to 70 Minutes - Inpatient Certification Based on my medical assessment, after consideration of the patient's comorbidities, presenting symptoms, or acuity I expect that the services needed warrant INPATIENT care.: Yes I certify that my determination is in accordance with my understanding of Medicare's requirements for reasonable and necessary INPATIENT services [42 CFR 412.3e].: Yes Medical Necessity: Need Close Monitoring Due to Risk of Patient Decompensation, Need For Continuous Telemetry Monitoring
--- NOTE | 2018-05-16 18:00 | EKG REPORT ---
SEVERITY:- ABNORMAL ECG - ATRIAL FIBRILLATION BORDERLINE PROLONGED QT INTERVAL : Confirmed by: Goldie Adams MD 16-May-2018 18:00:30
[2018-05-16] MEDS ORDERED: METOPROLOL TARTRATE PF/INJ 5 MG/5 ML SDV IV SCH ×2 (21:00→22:00)
[2018-05-16] MEDS: HEPARIN SOD (PORCINE) 5,000 UNIT/ML 1 ML SYRINGE SUBCUT SCH (21:06)
[2018-05-16] MEDS: METOPROLOL TARTRATE 25 MG TABLET PO SCH (21:06)
[2018-05-16] MEDS: ATORVASTATIN CALCIUM 40 MG TABLET PO SCH (21:06)
[2018-05-16] MEDS ORDERED: AZITHROMYCIN 500 MG in DEXTROSE 5%-WATER 250 ML IV ONE (22:00)
[2018-05-16] MEDS ORDERED: METOPROLOL TARTRATE PF/INJ 5 MG/5 ML SDV IV ONE (22:30)
[2018-05-17] MEDS: HEPARIN SOD (PORCINE) 5,000 UNIT/ML 1 ML SYRINGE SUBCUT SCH ×3 (05:03→21:47)
[2018-05-17 06:43] LABS: HEMATOCRIT 26.9 % (37.9-51.0); HEMOGLOBIN 9.1 g/dL (13.5-17.0); MEAN CORPUSCULAR HEMOGLOBIN 28.3 pg (27.0-33.4); MEAN CORPUSCULAR HGB CONC 33.8 g/dL (32.0-36.0); MEAN CORPUSCULAR VOLUME 84 fl (80-97); PLATELET COUNT 200 10^3/uL (150-450); RED BLOOD COUNT 3.21 10^6/uL (4.35-5.55); RED CELL DISTRIBUTION WIDTH 16.3 % (11.5-14.0); WHITE BLOOD COUNT 8.5 10^3/uL (4.0-10.5)
[2018-05-17 07:15] LABS: ANION GAP 6 (5-19); BLOOD UREA NITROGEN 20 mg/dL (7-20); CARBON DIOXIDE 34 mmol/L (22-30); CHLORIDE 99 mmol/L (98-107); GLUCOSE 109 mg/dL (75-110); POTASSIUM 5.1 mmol/L (3.6-5.0); SODIUM 139.1 mmol/L (137-145)
[2018-05-17] MEDS: CEFTRIAXONE 1 GM/D5W RTU 1 GM/50 ML RTUPB IV SCH (10:52)
[2018-05-17] MEDS: METOPROLOL TARTRATE 25 MG TABLET PO SCH ×2 (11:14→21:46)
--- NOTE | 2018-05-17 17:04 | PDOC PROGRESS REPORT ---
Subjective Progress Note for:: 05/17/18 Subjective:: No adverse events overnight. No new complaints. He says he feels pretty good. He tells me today that he does use oxygen at home sometimes on an as-needed basis. He said he is not had very much of a cough. He denies any shortness of breath. No fevers. Reason For Visit: COMMUNITY ACQUIRED PNEUMONIA Physical Exam Vital Signs: Temp Pulse Resp BP Pulse Ox 97.5 F 91 17 104/53 L 100 05/17/18 15:48 05/17/18 15:48 05/17/18 15:48 05/17/18 15:48 05/17/18 15:48 Intake & Output 05/16/18 05/17/18 05/18/18 06:59 06:59 06:59 Intake Total 1140 50 Output Total 400 Balance 740 50 Weight 70 kg General appearance: PRESENT: no acute distress, cooperative, disheveled Teeth exam: PRESENT: poor dentation Respiratory exam: PRESENT: rhonchi - In the right lung, unlabored. ABSENT: accessory muscle use, crackles, prolonged expiratory phas, symmetrical, tachypn ea, wheezes Cardiovascular exam: PRESENT: RRR, +S1, +S2 Vascular exam: PRESENT: normal capillary refill GI/Abdominal exam: PRESENT: normal bowel sounds, soft. ABSENT: distended, guarding, rebound, tenderness Extremities exam: ABSENT: clubbing, pedal edema Musculoskeletal exam: PRESENT: normal inspection. ABSENT: deformity Neurological exam: PRESENT: alert, awake, oriented to person, oriented to place, oriented to situation Psychiatric exam: PRESENT: appropriate affect, normal mood Skin exam: PRESENT: dry, warm Results Laboratory Results: 05/17/18 06:15 05/17/18 06:15 05/17/18 05/17/18 06:15 06:15 WBC 8.5 RBC 3.21 L Hgb 9.1 L Hct 26.9 L MCV 84 MCH 28.3 MCHC 33.8 RDW 16.3 H Plt Count 200 Sodium 139.1 Potassium 5.1 H Chloride 99 Carbon Dioxide 34 H Anion Gap 6 BUN 20 Creatinine 1.14 Est GFR ( Amer) > 60 Est GFR (Non-Af Amer) > 60 Glucose 109 Calcium 8.0 L 05/16/18 05/16/18 05/16/18 15:05 15:05 22:15 Creatine Kinase 22 L CK-MB (CK-2) 0.42 Troponin I < 0.012 < 0.012 NT-Pro-B Natriuret Pep 1370 H Impressions: Chest X-Ray 05/16/18 14:40 IMPRESSION: Trace right pleural effusion with right lower lobe alveolar and interstitial infiltrates, edema versus pneumonia Assessment & Plan - Diagnosis (1) Pneumonia Qualifiers: Laterality: right Lung location: lower lobe of lung Is this a current diagnosis for this admission?: Yes Plan: Continue Rocephin and azithromycin. Were going to repeat a chest x-ray. (2) Atrial fibrillation Qualifiers: Atrial fibrillation type: unspecified Qualified Code(s): I48.91 - Unspecified atrial fibrillation Is this a current diagnosis for this admission?: Yes Plan: Resolved. It may have actually been a sinus tachycardia with frequent PACs. - Time Time Spent with patient: 25-34 minutes
--- NOTE | 2018-05-17 18:18 | RADIOLOGY REPORT (SQ) ---
EXAM DESCRIPTION: CHEST SINGLE VIEW COMPLETED DATE/TIME: 05/17/2018 5:49 pm REASON FOR STUDY: pneumonia COMPARISON: 05/16/2018 EXAM PARAMETERS: NUMBER OF VIEWS: One view. TECHNIQUE: Single frontal radiographic view of the chest acquired. RADIATION DOSE: NA LIMITATIONS: None. FINDINGS: LUNGS AND PLEURA: There appears to be limited residual infiltrate in the right base. MEDIASTINUM AND HILAR STRUCTURES: No masses. Contour normal. HEART AND VASCULAR STRUCTURES: Heart normal in size. Normal vasculature. BONES: No acute findings. HARDWARE: None in the chest. OTHER: No other significant finding. IMPRESSION: Limited residual right lower lobe pneumonia. TECHNICAL DOCUMENTATION: JOB ID: [id number] [employer]- All Rights Reserved Reading location - IP/workstation name: [email or web address]
[2018-05-17] MEDS: ATORVASTATIN CALCIUM 40 MG TABLET PO SCH (21:47)
[2018-05-17] MEDS: AZITHROMYCIN 250 MG TABLET PO SCH (21:47)
[2018-05-18] MEDS: HEPARIN SOD (PORCINE) 5,000 UNIT/ML 1 ML SYRINGE SUBCUT SCH ×3 (05:20→22:46)
[2018-05-18 05:50] LABS: HEMATOCRIT 27.3 % (37.9-51.0); HEMOGLOBIN 9.1 g/dL (13.5-17.0); MEAN CORPUSCULAR HEMOGLOBIN 28.7 pg (27.0-33.4); MEAN CORPUSCULAR HGB CONC 33.2 g/dL (32.0-36.0); MEAN CORPUSCULAR VOLUME 87 fl (80-97); PLATELET COUNT 191 10^3/uL (150-450); RED BLOOD COUNT 3.15 10^6/uL (4.35-5.55); RED CELL DISTRIBUTION WIDTH 16.3 % (11.5-14.0); WHITE BLOOD COUNT 8.2 10^3/uL (4.0-10.5)
[2018-05-18 05:55] LABS: ANION GAP 5 (5-19); BLOOD UREA NITROGEN 25 mg/dL (7-20); CALCIUM 7.9 mg/dL (8.4-10.2); CARBON DIOXIDE 35 mmol/L (22-30); CHLORIDE 99 mmol/L (98-107); GLUCOSE 84 mg/dL (75-110); POTASSIUM 4.4 mmol/L (3.6-5.0); SODIUM 139.2 mmol/L (137-145)
[2018-05-18] MEDS: METOPROLOL TARTRATE 25 MG TABLET PO SCH ×2 (09:47→22:45)
[2018-05-18] MEDS: CEFTRIAXONE 1 GM/D5W RTU 1 GM/50 ML RTUPB IV SCH (09:49)
--- NOTE | 2018-05-18 16:34 | PDOC PROGRESS REPORT ---
Subjective Progress Note for:: 05/18/18 Subjective:: No adverse events overnight. No new complaints. Vital signs been stable. His oxygen saturations have been stable on oxygen. He is not sure how much oxygen he is on outside the hospital when he needs to go on it. Reason For Visit: COMMUNITY ACQUIRED PNEUMONIA Physical Exam Vital Signs: Temp Pulse Resp BP Pulse Ox 97.3 F 81 24 H 106/54 L 92 05/18/18 11:37 05/18/18 14:00 05/18/18 11:37 05/18/18 11:37 05/18/18 11:37 Intake & Output 05/17/18 05/18/18 05/19/18 06:59 06:59 06:59 Intake Total 1140 690 50 Output Total 400 Balance 740 690 50 Weight 70 kg 70.8 kg General appearance: PRESENT: no acute distress, cooperative, disheveled Teeth exam: PRESENT: poor dentation Respiratory exam: PRESENT: rhonchi - In the right lung, unlabored. ABSENT: accessory muscle use, crackles, prolonged expiratory phas, symmetrical, tachypnea, wheezes Cardiovascular exam: PRESENT: RRR, +S1, +S2 Vascular exam: PRESENT: normal capillary refill GI/Abdominal exam: PRESENT: normal bowel sounds, soft. ABSENT: distended, guarding, rebound, tenderness Extremities exam: ABSENT: clubbing, pedal edema Musculoskeletal exam: PRESENT: normal inspection. ABSENT: deformity Neurological exam: PRESENT: alert, awake, oriented to person, oriented to place, oriented to situation Psychiatric exam: PRESENT: appropriate affect, normal mood Skin exam: PRESENT: dry, warm Results Laboratory Results: 05/18/18 04:48 05/18/18 04:48 05/18/18 05/18/18 04:48 04:48 WBC 8.2 RBC 3.15 L Hgb 9.1 L Hct 27.3 L MCV 87 MCH 28.7 MCHC 33.2 RDW 16.3 H Plt Count 191 Sodium 139.2 Potassium 4.4 Chloride 99 Carbon Dioxide 35 H Anion Gap 5 BUN 25 H Creatinine 1.14 Est GFR ( Amer) > 60 Est GFR (Non-Af Amer) > 60 Glucose 84 Calcium 7.9 L 05/16/18 05/16/18 05/16/18 15:05 15:05 22:15 Creatine Kinase 22 L CK-MB (CK-2) 0.42 Troponin I < 0.012 < 0.012 NT-Pro-B Natriuret Pep 1370 H Impressions: Chest X-Ray 05/17/18 00:00 IMPRESSION: Limited residual right lower lobe pneumonia. Assessment & Plan - Diagnosis (1) Pneumonia Qualifiers: Laterality: right Lung location: lower lobe of lung Is this a current diagnosis for this admission?: Yes Plan: Continue Rocephin and azithromycin. Chest x-ray shows improvement in the right lower lobe pneumonia, we will likely switch to oral tomorrow. Case management is working on his discharge planning with his family. (2) Atrial fibrillation Qualifiers: Atrial fibrillation type: unspecified Qualified Code(s): I48.91 - Unspecified atrial fibrillation Is this a current diagnosis for this admission?: Yes Plan: Resolved. It may have actually been a sinus tachycardia with frequent PACs. - Time Time Spent with patient: 15-24 minutes
[2018-05-18] MEDS: AZITHROMYCIN 250 MG TABLET PO SCH (22:45)
[2018-05-18] MEDS: ATORVASTATIN CALCIUM 40 MG TABLET PO SCH (22:45)
[2018-05-19] MEDS: HEPARIN SOD (PORCINE) 5,000 UNIT/ML 1 ML SYRINGE SUBCUT SCH ×2 (05:41→14:25)
[2018-05-19 06:18] LABS: HEMATOCRIT 29.3 % (37.9-51.0); HEMOGLOBIN 9.7 g/dL (13.5-17.0); MEAN CORPUSCULAR HEMOGLOBIN 28.1 pg (27.0-33.4); MEAN CORPUSCULAR HGB CONC 33.1 g/dL (32.0-36.0); MEAN CORPUSCULAR VOLUME 85 fl (80-97); PLATELET COUNT 196 10^3/uL (150-450); RED BLOOD COUNT 3.46 10^6/uL (4.35-5.55); RED CELL DISTRIBUTION WIDTH 16.6 % (11.5-14.0); WHITE BLOOD COUNT 6.5 10^3/uL (4.0-10.5)
[2018-05-19 06:37] LABS: ANION GAP 5 (5-19); BLOOD UREA NITROGEN 24 mg/dL (7-20); CARBON DIOXIDE 37 mmol/L (22-30); CHLORIDE 99 mmol/L (98-107); GLUCOSE 92 mg/dL (75-110); POTASSIUM 4.4 mmol/L (3.6-5.0); SODIUM 140.7 mmol/L (137-145)
[2018-05-19] MEDS: METOPROLOL TARTRATE 25 MG TABLET PO SCH (10:08)
[2018-05-19] MEDS: CEFTRIAXONE 1 GM/D5W RTU 1 GM/50 ML RTUPB IV SCH (10:10)
[2018-05-19 13:27] VITALS: BP 104/49
--- NOTE | 2018-05-19 14:31 | PDOC TRANSFER SUMMARY ---
General - Admit/Disc Date/PCP Admission Date/Primary Care Provider: 05/16/18 17:00 ROCK BE, DO Discharge Date: 05/19/18 - Discharge Diagnosis (1) Pneumonia Is this a current diagnosis for this admission?: Yes Summary: He was brought over here for what he described as a "anxiety attack" it was said to be wheezing pretty bad in the ER but by the time I saw him he was not wheez ing at all. He had a little bit of a shadow on his chest x-ray in the right lower lobe and pneumonia cannot be excluded. We treated him for community- acquired pneumonia and he is done very well. He will finish a few more days of antibiotic back at the shelter facility. (2) Atrial fibrillation Is this a current diagnosis for this admission?: Yes Summary: It was initially concerning in the ER for atrial fibrillation but he has actually a sinus rhythm with frequent PACs and by the next day his rate has slowed down enough that we can see his underlying rhythm, which was NSR. - Additional Information Resuscitation Status: Full Code Discharge Diet: Cardiac Discharge Activity: Supervised Activity Prescriptions: Cefdinir 300 mg PO BID #10 capsule Home Medications: Albuterol Sulfate [Proair HFA Inhalation Aerosol 8.5 gm MDI] 2 puff IH Q4 PRN 05/16/18 Aspirin [Aspirin 81 mg Chewable Tablet] 81 mg PO DAILY 05/16/18 Atorvastatin Calcium [Lipitor 40 mg Tablet] 40 mg PO QHS 05/16/18 Carbidopa/Levodopa [Sinemet 25-250 mg Tablet] 1 each PO TID 05/16/18 Cyproheptadine HCl 4 mg PO BID 05/16/18 Furosemide [Lasix 20 mg Tablet] 20 mg PO QAM 05/16/18 Lisinopril [Zestril] 2.5 mg PO DAILY 05/16/18 Metoprolol Succinate [Toprol Xl 25 mg Tab.sr] 12.5 mg PO BID 05/16/18 Ropinirole HCl [Requip 0.25 mg Tablet] 0.25 mg PO QHS 05/16/18 Tiotropium [place] [Spiriva Handihaler 5 Cap/Kit (18 Mcg/Cap)] 1 cap IH DAILY 05/16/18 Trazodone HCl [Desyrel 50 mg Tablet] 50 mg PO QHS 05/16/18 Venlafaxine HCl [Effexor] 100 mg PO BID 05/16/18 Azithromycin [Zithromax 250 mg Tablet] 500 mg PO QHS tablet 05/19/18 Cefdinir 300 mg PO BID #10 capsule 05/19/18 History of Present Illness Admission Date/PCP: 05/16/18 17:00 ROCK BE DO History of Present Illness: EDIN MAX is a 77 year old male who was sent from [place] ostensibly with shortness of breath, but he says he thinks he was having "an anxiety attack." He denies any fevers. He denies any productive cough. I was told that he was wheezing, but whenever I saw him in the emergency department he was not wheezing at all. He was in atrial fibrillation on the monitor, and I cannot find any history of atrial fibrillation in the record, but he does have EKGs that show frequent PACs. He did get a nebulizer treatment in the ER. He says he feels fine now and does not want to stay. His family has pressured him into staying overnight. Hospital Course Hospital Course: We kept him on his home medications and started him on some antibiotics. He responded very quickly. He will complete a course of Omnicef in a couple of more days of azithromycin back at his shelter facility. He has had no changes to any of his home medications. He said that he is on oxygen sometimes but said not [id number], but he was pretty comfortable here on 2-3 L. His labs and examination were reassuring and he was discharged in good condition. Physical Exam Vital Signs: Temp Pulse Resp BP Pulse Ox 98.5 F 82 18 104/49 L 94 05/19/18 13:00 05/19/18 13:00 05/19/18 13:00 05/19/18 13:00 05/19/18 13:00 Intake & Output 05/18/18 05/19/18 05/20/18 06:59 06:59 06:59 Intake Total 690 272 554 Balance 690 272 554 Weight 70.8 kg 70.2 kg General appearance: PRESENT: no acute distress, cooperative, disheveled Teeth exam: PRESENT: poor dentation Respiratory exam: PRESENT: rhonchi - In the right lung, unlabored. ABSENT: accessory muscle use, crackles, prolonged expiratory phas, symmetrical, tachyp john, wheezes Cardiovascular exam: PRESENT: RRR, +S1, +S2 Vascular exam: PRESENT: normal capillary refill GI/Abdominal exam: PRESENT: normal bowel sounds, soft. ABSENT: distended, guarding, rebound, tenderness Extremities exam: ABSENT: clubbing, pedal edema Musculoskeletal exam: PRESENT: normal inspection. ABSENT: deformity Neurological exam: PRESENT: alert, awake, oriented to person, oriented to place, oriented to situation Psychiatric exam: PRESENT: appropriate affect, normal mood Skin exam: PRESENT: dry, warm Results Laboratory Results: 05/19/18 05:21 05/19/18 05:21 05/19/18 05/19/18 05:21 05:21 WBC 6.5 RBC 3.46 L Hgb 9.7 L Hct 29.3 L MCV 85 MCH 28.1 MCHC 33.1 RDW 16.6 H Plt Count 196 Sodium 140.7 Potassium 4.4 Chloride 99 Carbon Dioxide 37 H Anion Gap 5 BUN 24 H Creatinine 1.03 Est GFR ( Amer) > 60 Est GFR (Non-Af Amer) > 60 Glucose 92 Calcium 8.0 L 05/16/18 05/16/18 05/16/18 15:05 15:05 22:15 Creatine Kinase 22 L CK-MB (CK-2) 0.42 Troponin I < 0.012 < 0.012 NT-Pro-B Natriuret Pep 1370 H Impressions: Chest X-Ray 05/17/18 00:00 IMPRESSION: Limited residual right lower lobe pneumonia. Transfer Plan - Time Spent with Patient Time spent with patient: Less than 30 Minutes Qualifiers - * PATIENT BEING DISCHARGED WITH ANY OF THE FOLLOWING DIAGNOSIS: No
== END 2018-05-19 17:11 | DRG 190 ==
LOC: ER 14:34 → EH 17:00 → 4W 18:25
PROVIDERS: ADMIT Internal Medicine; ATTEND Internal Medicine
DX: J44.0 Chronic obstructive pulmonary disease with (acute) lower respiratory infection (principal); J18.9 Pneumonia, unspecified organism; J44.1 Chronic obstructive pulmonary disease with (acute) exacerbation; I48.91 Unspecified atrial fibrillation; D64.9 Anemia, unspecified; Z99.81 Dependence on supplemental oxygen; Z87.891 Personal history of nicotine dependence; Z85.038 Personal history of other malignant neoplasm of large intestine; Z79.82 Long term (current) use of aspirin; Z79.51 Long term (current) use of inhaled steroids; Z79.899 Other long term (current) drug therapy
CPT/HCPCS: 36415; 71045; 80048; 80053; 80061; 82550; 82553; 82962; 83880; 84484; 85025; 85027; 87040; 93005; 93010; 94640; 96361; 96365; 96375; 99285; J0456; J0696; J1644; J2930; J3490; J7040; J7060; J7620

== ENCOUNTER 2018-05-30 11:15 | Emergency (ER) | payer MEDICARE ==
[2018-05-30 11:24] VITALS: BP 100/53
[2018-05-30] MEDS ORDERED: ACETAMINOPHEN 325 MG TABLET PO ONE (11:41)
--- NOTE | 2018-05-30 11:43 | ER Document Report ---
ED General - General Stated Complaint: FALL,BODY PAIN Time Seen by Provider: 05/30/18 11:31 Primary Care Provider: ROCK BE DO [Primary Care Provider] - Follow up in 3-5 days Notes: Patient is a 77-year-old male that presents to the emergency department for chief complaint of left knee pain after fall. Patient was getting out of bed, and went to sit in a wheelchair and he missed the wheelchair and fell onto his knees, he states that the chair slipped out from underneath him. He denies having any significant pain at this time, some knee tenderness on the left. Denies head injury or neck pain at this time. He states the only thing that hurts is his "pride." Denies any other complaints at this time, denies headache, neck pain, numbness, weakness or tingling in any extremity, denies nausea, vomiting, blurred vision or changes in his vision. Past Medical History: Dementia, hypertension, arthritis Past Surgical History: Reviewed and not pertinent to presentation. Social History: Patient lives in [facility], no current alcohol or drug use or tobacco use, DNR CODE STATUS. Family History: Reviewed and noncontributory for presenting illness Allergies: Reviewed, see documented allergy list. REVIEW OF SYSTEMS: Other than noted above, the 12 point review of systems was reviewed with the patient and were negative, all pertinent findings are included in the HPI. PHYSICAL EXAMINATION: Vital signs reviewed, nursing noted reviewed. GENERAL: Elderly male, at baseline mental status HEAD: Atraumatic, normocephalic. EYES: Eyes appear normal, sclera anicteric, conjunctiva are normal. ENT: Moist mucous membranes. NECK: Normal range of motion, supple without lymphadenopathy LUNGS: Breath sounds clear to auscultation bilaterally and equal. No wheezes rales or rhonchi. HEART: Regular rate and rhythm without murmurs EXTREMITIES: Mild lateral tenderness of the left knee, no joint effusion appreciated, good range of motion, no gross deformities. The rest of the patient's extremity exam is grossly unremarkable and nontender, good range of motion, no pitting or edema. NEUROLOGICAL: No focal neurological deficits. Moves all extremities spontaneously Motor and sensory grossly intact on exam. PSYCH: Normal mood, normal affect. SKIN: Warm, Dry, normal turgor, no rashes or lesions noted on exposed skin TRAVEL OUTSIDE OF THE [place] IN LAST 30 DAYS: No - Related Data Allergies/Adverse Reactions: No Known Allergies Allergy (Verified 02/11/12 14:25) Past Medical History - Social History Smoking Status: Former Smoker Family History: Reviewed & Not Pertinent - Past Medical History Cardiac Medical History: Reports: Hx Heart Attack, Hx Hypercholesterolemia, Hx Hypertension Pulmonary Medical History: Reports: Hx COPD, Hx Pneumonia, Hx Sleep Apnea Denies: Hx Tuberculosis Renal/ Medical History: Reports: Hx Kidney Stones. Denies: Hx Peritoneal Dialysis Malignancy Medical History: Reports Hx Colorectal Cancer Past Surgical History: Reports: Hx Bowel Surgery - colon cancer - removed, Hx Cardiac Surgery - 4 stents. Denies: Hx Pacemaker - Immunizations Hx Diphtheria, Pertussis, Tetanus Vaccination: No Physical Exam - Vital signs Vitals: Temp Pulse BP Pulse Ox 98.0 F 72 100/53 L 98 05/30/18 11:23 05/30/18 11:23 05/30/18 11:23 05/30/18 11:23 Course - Re-evaluation Re-evalutation: Patient seen and examined, vital signs reviewed, patient appears well on exam, was not complaining of any pain, he did have some tenderness to palpation to the left knee, x-rays obtained and were negative for any acute fracture or bony injury. The patient otherwise appears well, no other complaints, will [facility] back to his [facility] facility to follow-up with his primary care. - Vital Signs Vital signs: Temp Pulse Resp BP Pulse Ox 98.0 F 72 100/53 L 98 05/30/18 11:23 05/30/18 11:23 05/30/18 11:23 05/30/18 11:23 Discharge - Discharge Clinical Impression: Knee pain Qualifiers: Chronicity: acute Laterality: left Qualified Code(s): M25.562 - Pain in left knee Fall Qualifiers: Encounter type: initial encounter Qualified Code(s): W19.XXXA - Unspecified fall, initial encounter Condition: Stable Disposition: HOME, SELF-CARE Instructions: Contusion ([facility]) Additional Instructions: Please follow-up with her primary care, take Tylenol if needed for pain in the knee. Referrals: ROCK BE DO [Primary Care Provider] - Follow up in 3-5 days
--- NOTE | 2018-05-30 12:48 | RADIOLOGY REPORT (SQ) ---
EXAM DESCRIPTION: KNEE LEFT 4 VIEW COMPLETED DATE/TIME: 05/30/2018 12:32 pm REASON FOR STUDY: left knee pain, fall COMPARISON: None. NUMBER OF VIEWS: Four views. TECHNIQUE: AP, lateral, and both oblique radiographic images acquired of the left knee. LIMITATIONS: None. FINDINGS: MINERALIZATION: Osteopenic BONES: No acute fracture or dislocation. No worrisome bone lesions. JOINT: Mild medial compartment joint space narrowing without bulky bony spurring. No significant sup rapatellar knee joint effusion. No loose bodies. SOFT TISSUES: No soft tissue swelling. No radio-opaque foreign body. OTHER: No other significant finding. IMPRESSION: Mild medial compartment joint space narrowing. No acute fracture or malalignment. TECHNICAL DOCUMENTATION: JOB ID: [id number] [employer]- All Rights Reserved Reading location - IP/workstation name: [email or web address]
== END 2018-05-30 13:35 | disposition home or self-care (01) ==
LOC: ER 11:15
DX: M25.562 Pain in left knee (principal); W06.XXXA Fall from bed, initial encounter; F03.90 Unspecified dementia, unspecified severity, without behavioral disturbance, psychotic disturbance, mood disturbance, and anxiety; I10 Essential (primary) hypertension; Z87.891 Personal history of nicotine dependence; J44.9 Chronic obstructive pulmonary disease, unspecified
CPT/HCPCS: 99284; 73564; A9270

== ENCOUNTER 2018-05-30 15:39 | Inpatient (IN) | payer MEDICARE ==
[2018-05-30] MEDS ORDERED: LORAZEPAM INJ 2 MG/1 ML VIAL IM ONE (15:56)
--- NOTE | 2018-05-30 16:46 | RADIOLOGY REPORT (SQ) ---
EXAM DESCRIPTION: CHEST SINGLE VIEW COMPLETED DATE/TIME: 05/30/2018 4:31 pm REASON FOR STUDY: sob COMPARISON: Chest films 04/02/2018, 05/16/2018, 05/17/2018 EXAM PARAMETERS: NUMBER OF VIEWS: One view. TECHNIQUE: Single frontal radiographic view of the chest acquired. RADIATION DOSE: NA LIMITATIONS: Motion artifact FINDINGS: LUNGS AND PLEURA: Question few Nupur lines at the right lung base. Upper lobes are hyper lucent from obstructive disease. No pleural effusion or pneumothorax. MEDIASTINUM AND HILAR STRUCTURES: No masses. Contour normal. HEART AND VASCULAR STRUCTURES: Stable borderline cardiomegaly and tortuous uncoiled thoracic aorta BONES: No acute findings. HARDWARE: None in the chest. OTHER: No other significant finding. IMPRESSION: Question Nupur lines at the right lung base. Upper lobes hyperlucent suggesting obstructive disease TECHNICAL DOCUMENTATION: JOB ID: [id number] [employer]- All Rights Reserved Reading location - IP/workstation name: [email or web address]
--- NOTE | 2018-05-30 16:52 | RADIOLOGY REPORT (SQ) ---
EXAM DESCRIPTION: CT HEAD WITHOUT COMPLETED DATE/TIME: 05/30/2018 4:32 pm REASON FOR STUDY: fall COMPARISON: None. TECHNIQUE: Axial images acquired through the brain without intravenous contrast. Images reviewed wi th bone, brain and subdural windows. Additional sagittal and coronal reconstructions were generated. Images stored on PACS. All CT scanners at this facility use dose modulation, iterative reconstruction, and/or weight based d osing when appropriate to reduce radiation dose to as low as reasonably achievable (ALARA). [facility]: Dose Right [facility]: CareDose [facility]: Dose Right [facility]: Teradose 4D [facility]: Smart [employer] RADIATION DOSE: CT Rad equipment meets quality standard of care and radiation dose reduction techniq ues were employed. CTDIvol: 55.2 mGy. DLP: 1084 mGy-cm. mGy. LIMITATIONS: None. FINDINGS: VENTRICLES: Normal size and contour. CEREBRUM: Mild cortical atrophy. No masses. No hemorrhage. No midline shift. No evidence for acut e infarction. Normal wharton/white matter differentiation. No areas of low density in the white matter. CEREBELLUM: There is a small area of encephalomalacia in the would lobe of the cerebellum. No hemorr estela. EXTRAAXIAL SPACES: No fluid collections. No masses. ORBITS AND GLOBE: No intra- or extraconal masses. Normal contour of globe without masses. CALVARIUM: No fracture. PARANASAL SINUSES: No fluid or mucosal thickening. SOFT TISSUES: No mass or hematoma. OTHER: No other significant finding. IMPRESSION: Mild involutional changes of aging with no acute intracranial imaging finding. 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 EVIDENCE OF ACUTE STROKE: NO. COMMENT: Quality ID # 436: Final reports with documentation of one or more dose reduction techniques (e.g., Automated exposure control, adjustment of the mA and/or kV according to patient size, use of iterative reconstruction technique) TECHNICAL DOCUMENTATION: JOB ID: [id number] [employer]- All Rights Reserved Reading location - IP/workstation name: [email or web address]
--- NOTE | 2018-05-30 16:55 | RADIOLOGY REPORT (SQ) ---
EXAM DESCRIPTION: CT CERVICAL SPINE WITHOUT COMPLETED DATE/TIME: 05/30/2018 4:32 pm REASON FOR STUDY: fall COMPARISON: None. TECHNIQUE: Axial images acquired through the cervical spine without intravenous contrast. Images re viewed with lung, soft tissue and bone windows. Reconstructed coronal and sagittal MPR images review ed. Images stored on PACS. All CT scanners at this facility use dose modulation, iterative reconstruction, and/or weight based d osing when appropriate to reduce radiation dose to as low as reasonably achievable (ALARA). [facility]: Dose Right [facility]: CareDose [facility]: Dose Right [facility]: Teradose 4D [facility]: Smart [employer] RADIATION DOSE: CT Rad equipment meets quality standard of care and radiation dose reduction techniq ues were employed. CTDIvol: 9.6 mGy. DLP: 221 mGy-cm. mGy. LIMITATIONS: None. FINDINGS: ALIGNMENT: Anatomic. MINERALIZATION: Normal. VERTEBRAL BODIES: No fractures or dislocation. DISCS: There is mild disc narrowing at C4-5 and C5-6. Small marginal osteophytes are present. There is prominent anterior osteophyte at C6-7. FACETS, LATERAL MASSES, POSTERIOR ELEMENTS: No fractures. No dislocation. No acute findings. HARDWARE: None in the spine. VISUALIZED RIBS: No fractures. LUNG APICES AND SOFT TISSUES: No significant or acute findings. OTHER: No other significant finding. IMPRESSION: Mild degenerative disc disease and spondylosis. No acute finding. TECHNICAL DOCUMENTATION: JOB ID: [id number] Quality ID # [id number]: Final reports with documentation of one or more dose reduction techniques (e.g., Au tomated exposure control, adjustment of the mA and/or kV according to patient size, use of iterative reconstruction technique) 2010 [employer]- All Rights Reserved Reading location - IP/workstation name: [email or web address]
[2018-05-30 17:58] LABS: APPEARANCE,URINE SLIGHTLY-CLOUDY; BILIRUBIN,URINE NEGATIVE (NEGATIVE); COLOR,URINE YELLOW; GLUCOSE, URINE NEGATIVE (NEGATIVE); KETONES,URINE TRACE mg/dL (NEGATIVE); LEUKOCYTE ESTERASE,URINE NEGATIVE (NEGATIVE); NITRITE,URINE NEGATIVE (NEGATIVE); PROTEIN,URINE NEGATIVE (NEGATIVE); URINE SPECIFIC GRAVITY 1.014; UROBILINOGEN,URINE NEGATIVE mg/dL (<2.0)
[2018-05-30 18:00] LABS: ALANINE AMINOTRANSFERASE 18 U/L (21-72); ALBUMIN 3.4 g/dL (3.5-5.0); ALKALINE PHOSPHATASE 115 U/L (38-126); ANION GAP 10 (5-19); ASPARTATE AMINO TRANSFERASE 25 U/L (17-59); BILIRUBIN,DIRECT 0.3 mg/dL (0.0-0.4); BILIRUBIN,TOTAL 0.9 mg/dL (0.2-1.3); BLOOD UREA NITROGEN 20 mg/dL (7-20); CALCIUM 8.9 mg/dL (8.4-10.2); CARBON DIOXIDE 33 mmol/L (22-30); CHLORIDE 93 mmol/L (98-107); GLUCOSE 145 mg/dL (75-110); POTASSIUM 4.9 mmol/L (3.6-5.0); SODIUM 136.1 mmol/L (137-145); TOTAL PROTEIN 6.2 g/dL (6.3-8.2)
[2018-05-30 18:14] LABS: HEMATOCRIT 31.6 % (37.9-51.0); HEMOGLOBIN 10.4 g/dL (13.5-17.0); MEAN CORPUSCULAR HEMOGLOBIN 28.1 pg (27.0-33.4); MEAN CORPUSCULAR HGB CONC 32.8 g/dL (32.0-36.0); MEAN CORPUSCULAR VOLUME 86 fl (80-97); PLATELET COUNT 243 10^3/uL (150-450); RED CELL DISTRIBUTION WIDTH 18.3 % (11.5-14.0); WHITE BLOOD COUNT 28.9 10^3/uL (4.0-10.5)
[2018-05-30 18:39] LABS: ABSOLUTE LYMPHOCYTES# (MANUAL) 0.9 10^3/uL (0.5-4.7); ABSOLUTE MONOCYTES # (MANUAL) 0.9 10^3/uL (0.1-1.4); ABSOLUTE NEUTROPHILS# (MANUAL) 27.2 10^3/uL (1.7-8.2); BASOPHILS % (MANUAL) 0 % (0-2); EOSINOPHILS % (MANUAL) 0 % (0-6); LYMPHOCYTES % (MANUAL) 3 % (13-45); MONOCYTES % (MANUAL) 3 % (3-13); SEGMENTED NEUTROPHILS % (MAN) 94 % (42-78); TOTAL CELLS COUNTED 100
[2018-05-30 18:40] LABS: ANISOCYTOSIS 1+; OVALOCYTES 1+; PLATELET COMMENT ADEQUATE; POIKILOCYTOSIS 1+
[2018-05-30] MEDS ORDERED: RINGERS SOLUTION,LACTATED 1,000 ML IV ONE ×2 (19:02)
[2018-05-30] MEDS ORDERED: CEFTRIAXONE 2 GM/D5W RTU 2 GM/50 ML RTUPB IV ONE (20:02)
[2018-05-30] MEDS ORDERED: VANCOMYCIN HCL INJ 1000 MG VIAL IV ONE (20:02)
[2018-05-30] MEDS ORDERED: ACYCLOVIR SODIUM INJ/PF 500 MG/10 ML SDV IV ONE (20:05)
[2018-05-30] MEDS ORDERED: LIDOCAINE 1% INJ (10 MG/ML) 10 ML MDV INJ ONE (20:11)
[2018-05-30] MEDS ORDERED: MIDAZOLAM 2 MG/2 ML INJ IV ONE (20:12)
[2018-05-30] MEDS ORDERED: HALOPERIDOL LACTATE INJ 5 MG/1 ML VIAL IV ONE (20:17)
[2018-05-30] MEDS ORDERED: HALOPERIDOL LACTATE INJ 5 MG/1 ML VIAL ONE (20:19)
[2018-05-30] MEDS ORDERED: LIDOCAINE 1% INJ-PF (10 MG/ML) 30 ML SDV ONE (20:21)
--- NOTE | 2018-05-30 20:25 | ER Document Report ---
ED General - General TRAVEL OUTSIDE OF THE [place] IN LAST 30 DAYS: No <ELIANA HEATH - Last Filed: 05/30/18 20:56> <[email or web address] - Last Filed: 05/31/18 05:14> - General Chief Complaint: Altered Mental Status Stated Complaint: ALTERED MENTAL STATUS Time Seen by Provider: 05/30/18 15:49 Notes: Patient is a 77-year-old male presents to the emergency department from [facility] for altered mental status. Patient was apparently already seen today in the department for an unwitnessed fall and the patient was trying to get from his bed to his wheelchair to use the restroom. At that time he was noted patient was only complaining of knee pain and had no other complaints. Patient was initially sent back to the nursing facility with a negative knee x-rays. Nursing facility states the patient continues to be altered and not at his mental baseline which is why they called 911 again to have the patient retransferred back to the hospital. Upon arrival the patient is noted to be tachypneic and tachycardic. Patient is rocking back and forth in the bed. He will look at you initially when you ask him something. He is noted to have Parkinson's and dementia on his paperwork. Patient's speech not slurredis although he has not making sense when he speaks. Unsure what the patient is at baseline. (ELIANA HEATH) - Related Data Allergies/Adverse Reactions: No Known Allergies Allergy (Verified 02/11/12 14:25) Past Medical History - Social History Smoking Status: Former Smoker Family History: Reviewed & Not Pertinent Patient has suicidal ideation: No Patient has homicidal ideation: No - Past Medical History Cardiac Medical History: Reports: Hx Heart Attack, Hx Hypercholesterolemia, Hx Hypertension Pulmonary Medical History: Reports: Hx COPD, Hx Pneumonia, Hx Sleep Apnea Denies: Hx Tuberculosis Renal/ Medical History: Reports: Hx Kidney Stones. Denies: Hx Peritoneal Dialysis Malignancy Medical History: Reports Hx Colorectal Cancer Past Surgical History: Reports: Hx Bowel Surgery - colon cancer - removed, Hx Cardiac Surgery - 4 stents. Denies: Hx Pacemaker - Immunizations Hx Diphtheria, Pertussis, Tetanus Vaccination: No <ELIANA HEATH - Last Filed: 05/30/18 20:56> - Vital signs Vitals: Resp 26 H 05/30/18 16:39 Course - Laboratory Result Diagrams: 05/30/18 17:30 05/30/18 17:30 <[email or web address] - Last Filed: 05/30/18 20:56> - Laboratory Result Diagrams: 05/31/18 03:20 05/31/18 03:20 <BRONSON COE - Last Filed: 05/31/18 05:14> - Re-evaluation Re-evalutation: 05/30/18 Patient groaning and grimacing with his eyes closed, he will not respond to me. He is protecting his airway. He is not hypoxic. He is tachycardic. Blood pres sure readings are strange and I am not sure they are accurate. Patient is a leukocytosis of almost 29,000 with elevated neutrophils but no bandemia. He does not have a fever. Lactic acid pending. I called and spoke with patient's at phone #[phone], she states she calls him every day and when she does she has a fairly normal conversation with him, she states she called him this morning and he was confused and could not hold any conversation at all. Patient is not conversational at all at this time, suspect he has had a severe decline in mental status. I discussed with , patient is in fact a DNR, however she states that she and the daughter were talking and they feel that he should not be a DNR and they wish they had not perform this and they want to rescind it. I did inform the that patient appears to be severely ill and she states understanding of this. CAT scan of the head is unremarkable. Because of this I suspect he could have meningitis since he does not have an obvious pneumonia or urinary tract infection, there is no rash, his abdomen seems benign. I did discuss with Dr. Holliday, lumbar puncture was attempted but we could not complete this based on patient's anatomy and complaints. Giving Rocephin, vancomycin, acyclovir to cover for possible meningitis. I asked for manual blood pressure to be performed, this resulted 78/52. Patient has a thready pulse. We placed a smaller cuff on him to fit his size better and now we are getting accurate pressures. He is in fact hypotensive. He was given another 1 L normal saline saline bolus, he already received 1 L of lactated Ringer's earlier. Second peripheral line was placed. 05/30/18 22:25 Blood pressure is now 104/68 with a map of 69. Will call for admission. Dr. Banks recommends CAT scan of the abdomen for possible etiology of the infection. Will perform a CAT scan of the chest to while he is receiving the contrast bolus. CAT scan of the chest shows possible pneumonia, CAT scan of the abdomen shows cholelithiasis without cholecystitis, patient also has a left hip fracture, comminuted. Patient does have bruising externally over the left femoral site. The area is not significantly swollen. Blood pressure started to down trend again, I placed a right femoral central line. Discussed with Dr. Holliday. Attempted to disimpact patient but there was only soft stool and this was at the back of the rectum without easy reaching. Unable to perform. Discussed with Dr. Banks again, patient admitted to the ICU. (BRONSON COE) - Vital Signs Vital signs: Temp Pulse Resp BP Pulse Ox 97.9 F 17 80/44 L 93 05/30/18 17:22 05/31/18 04:47 05/31/18 04:47 05/31/18 04:47 - Laboratory Laboratory results interpreted by me: 05/30/18 05/30/18 05/30/18 17:30 17:30 17:42 WBC 28.9 H RBC 3.70 L Hgb 10.4 L Hct 31.6 L RDW 18.3 H Seg Neuts % (Manual) 94 H Lymphocytes % (Manual) 3 L Abs Neuts (Manual) 27.2 H Sodium 136.1 L Chloride 93 L Carbon Dioxide 33 H Creatinine 1.39 H Est GFR (Non-Af Amer) 50 L Glucose 145 H Lactic Acid ALT 18 L Total Protein 6.2 L Albumin 3.4 L Urine Ketones TRACE H 05/30/18 05/31/18 19:35 00:25 WBC RBC Hgb Hct RDW Seg Neuts % (Manual) Lymphocytes % (Manual) Abs Neuts (Manual) Sodium Chloride Carbon Dioxide Creatinine Est GFR (Non-Af Amer) Glucose Lactic Acid 3.7 H 4.1 H ALT Total Protein Albumin Urine Ketones Procedures - Central Line Right femoral Time completed: 23:15 Central line pre-insertion: Sterile PPE donned, Chloraprep applied, Sterile drapes applied Central line lumen type: Triple Anesthetic type: 1% Lidocaine mL's of anesthesia: 5 Ultrasound guided: Yes Line secured with sutures: Yes Central line post-insertion: Blood return from lumens, Biopatch applied, Sutured, Sterile dressing applied, Position confirmed w/ CXR - with KUB Complications: No <BRONSON COE - Last Filed: 05/31/18 05:14> Critical Care Note - Critical Care Note Total time excluding time spent on procedures (mins): 45 - Altered mental status, septic shock <BRONSON COE - Last Filed: 05/31/18 05:14> - Critical Care Note Comments: Please allow 45 minutes of critical care time excluding procedures for e valuation and management of patient with altered mental status, septic shock. Multiple re-evaluations, time spent discussing with family, time spent interpreting results, time spent in discussing admission to the ICU. (BRONSON COE) Discharge <ELIANA HEATH - Last Filed: 05/30/18 20:56> - Discharge Admitting Provider: Hospitalist Unit Admitted: ICU <BRONSON COE - Last Filed: 05/31/18 05:14> - Discharge Clinical Impression: Altered mental status Qualifiers: Altered mental status type: unspecified Qualified Code(s): R41.82 - Altered mental status, unspecified Leukocytosis Qualifiers: Leukocytosis type: unspecified Qualified Code(s): D72.829 - Elevated white blood cell count, unspecified Sepsis Qualifiers: Sepsis type: sepsis due to unspecified organism Qualified Code(s): A41.9 - Sepsis, unspecified organism Closed left hip fracture Qualifiers: Encounter type: initial encounter Qualified Code(s): S72.002A - Fracture of unspecified part of neck of left femur, initial encounter for closed fracture Condition: Serious Disposition: ADMITTED INPATIENT
[2018-05-30] MEDS ORDERED: NORMAL SALINE 1000 ML 1,000 ML IV ONE (21:35)
[2018-05-30] MEDS ORDERED: VANCOMYCIN HCL INJ 1000 MG VIAL ONE (22:30)
[2018-05-30 22:36] LABS: A TYPE INFLUENZA AG NEGATIVE (NEGATIVE); B INFLUENZA AG NEGATIVE (NEGATIVE)
[2018-05-30] MEDS ORDERED: DEXTROSE 5%-WATER 250 ML with NOREPINEPHRINE BITARTRATE 4 MG IV PRN ×2 (22:44)
--- NOTE | 2018-05-30 23:55 | RADIOLOGY REPORT (SQ) ---
EXAM DESCRIPTION: XR ABDOMEN 1 VIEW (KUB) COMPLETED DATE/TME: 05/30/2018 00:00 CLINICAL HISTORY: 77 years Male, FEMORAL LINE PLACEMENT COMPARISON: None. NUMBER OF VIEWS/TECHNIQUE: 1 FINDINGS: Right femoral line tip at the right paramedial upper pelvis. Intestinal gas pattern is within normal limits. No suspicious calcification. Grossly intact skeletal structures. IMPRESSION: No acute findings. Right femoral line.
--- NOTE | 2018-05-31 00:35 | RADIOLOGY REPORT (SQ) ---
EXAM DESCRIPTION: CT ABDOMEN PELVIS WITH IV CONTRAST, CT CHEST WITH IV CONTRAST COMPLETED DATE/TME: 05/30/2018 22:44 CLINICAL HISTORY: 77 years, Male, fever/sepsis of unknown etiology COMPARISON: None. TECHNIQUE: Axial CT images of the chest, abdomen, and pelvis were obtained after the administration of IV contrast. Sagittal and coronal reformats were performed. [facility] 1718 Images stored on PACS. All CT scanners at this facility use dose modulation, iterative reconstruction, and/or weight based dosing when appropriate to reduce radiation dose to as low as reasonably achievable (ALARA). [facility]: Dose Right [facility]: CareDose [facility]: Dose Right [facility]: Teradose 4D [facility]: [employer] LIMITATIONS: None. FINDINGS: --Chest-- Thoracic aorta: Atherosclerotic calcifications Heart: Atherosclerotic calcifications of the coronary arteries Mediastinum: No pathologic sized middle mediastinal lymphadenopathy. Tracheobronchial tree: Unremarkable. Lungs: Lobar consolidation: There are multiple nodular opacities particularly within the right lower lobe. Pleural effusion: Small left Pneumothorax: Negative. Other: Negative. Bones: Unremarkable. --Abdomen-- Solid abdominal viscera: Liver: Unremarkable. Gallbladder: Cholelithiasis Pancreas: Unremarkable. Spleen: Unremarkable. Adrenal glands: Unremarkable. Right kidney: No hydronephrosis. Vascular calcifications are noted. Left kidney: No hydronephrosis. Vascular calcifications are noted. Urinary bladder: Unremarkable. Abdominal aorta: Atherosclerotic disease without evidence of an aneurysm Peritoneal: Free fluid: None. Free air: None. Other: No pathologic sized lymph nodes in the upper abdomen. Bowel: Stomach: Unremarkable. Small bowel: Unremarkable. Colon: Postsurgical changes. Rectum: Unremarkable. Prostate: Unremarkable. Bones: There is a mildly displaced and comminuted left intertrochanteric fracture. There is a mild chronic appearing compression deformity of L1. IMPRESSION: Tiny nodular opacities particularly within the right lower lobe, likely due to an infectious/inflammatory process. Small left pleural effusion. Cholelithiasis. Mildly displaced and comminuted left intertrochanteric fracture. TECHNICAL DOCUMENTATION: Quality ID # [id number]: Final reports with documentation of one or more dose reduction techniques (e.g., Automated exposure control, adjustment of the mA and/or kV according to patient size, use of iterative reconstruction technique) copyright 2011 [employer]- All Rights Reserved
--- NOTE | 2018-05-31 00:35 | RADIOLOGY REPORT (SQ) ---
EXAM DESCRIPTION: CT ABDOMEN PELVIS WITH IV CONTRAST, CT CHEST WITH IV CONTRAST COMPLETED DATE/TME: 05/30/2018 22:44 CLINICAL HISTORY: 77 years, Male, fever/sepsis of unknown etiology COMPARISON: None. TECHNIQUE: Axial CT images of the chest, abdomen, and pelvis were obtained after the administration of IV contrast. Sagittal and coronal reformats were performed. [facility] 1718 Images stored on PACS. All CT scanners at this facility use dose modulation, iterative reconstruction, and/or weight based dosing when appropriate to reduce radiation dose to as low as reasonably achievable (ALARA). [facility]: Dose Right [facility]: CareDose [facility]: Dose Right [facility]: Teradose 4D [facility]: [employer] LIMITATIONS: None. FINDINGS: --Chest-- Thoracic aorta: Atherosclerotic calcifications Heart: Atherosclerotic calcifications of the coronary arteries Mediastinum: No pathologic sized middle mediastinal lymphadenopathy. Tracheobronchial tree: Unremarkable. Lungs: Lobar consolidation: There are multiple nodular opacities particularly within the right lower lobe. Pleural effusion: Small left Pneumothorax: Negative. Other: Negative. Bones: Unremarkable. --Abdomen-- Solid abdominal viscera: Liver: Unremarkable. Gallbladder: Cholelithiasis Pancreas: Unremarkable. Spleen: Unremarkable. Adrenal glands: Unremarkable. Right kidney: No hydronephrosis. Vascular calcifications are noted. Left kidney: No hydronephrosis. Vascular calcifications are noted. Urinary bladder: Unremarkable. Abdominal aorta: Atherosclerotic disease without evidence of an aneurysm Peritoneal: Free fluid: None. Free air: None. Other: No pathologic sized lymph nodes in the upper abdomen. Bowel: Stomach: Unremarkable. Small bowel: Unremarkable. Colon: Postsurgical changes. Rectum: Unremarkable. Prostate: Unremarkable. Bones: There is a mildly displaced and comminuted left intertrochanteric fracture. There is a mild chronic appearing compression deformity of L1. IMPRESSION: Tiny nodular opacities particularly within the right lower lobe, likely due to an infectious/inflammatory process. Small left pleural effusion. Cholelithiasis. Mildly displaced and comminuted left intertrochanteric fracture. TECHNICAL DOCUMENTATION: Quality ID # [id number]: Final reports with documentation of one or more dose reduction techniques (e.g., Automated exposure control, adjustment of the mA and/or kV according to patient size, use of iterative reconstruction technique) copyright 2011 [employer]- All Rights Reserved
[2018-05-31] MEDS ORDERED: MAG HYDROX/AL HYDROX/SIMETH SUSP 30 ML UDCUP PO PRN (00:56)
[2018-05-31] MEDS ORDERED: MAGNESIUM HYDROXIDE SUSP 30 ML UDCUP PO PRN (00:56)
[2018-05-31] MEDS ORDERED: ACETAMINOPHEN 650 MG SUPP.RECT PR PRN (00:56)
[2018-05-31] MEDS ORDERED: ONDANSETRON HCL INJ/PF 4 MG/2 ML SDV IV PRN ×2 (00:56→11:00)
[2018-05-31] MEDS ORDERED: AZITHROMYCIN INJ 500 MG VIAL IV PRN (01:13)
[2018-05-31] MEDS ORDERED: AZITHROMYCIN 500 MG in DEXTROSE 5%-WATER 250 ML IV ONE (02:00)
[2018-05-31] MEDS ORDERED: ROPINIROLE HCL 0.25 MG TABLET PO ONE (02:00)
[2018-05-31] MEDS ORDERED: ATORVASTATIN CALCIUM 40 MG TABLET PO ONE (02:00)
[2018-05-31] MEDS ORDERED: TRAZODONE HCL 50 MG TABLET PO ONE (02:00)
[2018-05-31] MEDS: NORMAL SALINE 1000 ML 1,000 ML IV PRN ×5 (02:02→21:52)
[2018-05-31] MEDS: IPRATROPIUM/ALBUTEROL 0.5-2.5 MG/3 ML AMPUL NEB SCH ×4 (02:02→20:54)
[2018-05-31] MEDS: FENTANYL CITRATE INJ/PF 100 MCG/2 ML AMPUL IV PRN ×6 (02:02→19:57)
--- NOTE | 2018-05-31 02:09 | PDOC H&P ---
History of Present Illness Admission Date/PCP: 05/31/18 01:22 ROCK BE DO Patient complains of: Altered mental status History of Present Illness: EDIN MAX is a 77 year old male with a past medical history of Parkinson's disease, atrial fibrillation without anticoagulation, COPD, sleep apnea, depression, anxiety, discharged 11 days ago for COPD exacerbation secondary to pneumonia treated with Omnicef and azithromycin. He returns with altered mental status and [facility] a [facility] and subsequently brought to the emergency room for evaluation where he is found to have altered mental status and unable to provide any useful history, hypotension, fever, a shortened left leg and with external rotation, CT chest reveals infiltrate in the right lung base, CT pelvis reveals left-sided hip fracture. He receives 2 L of colloid, empiric antibiotics and referred to the hospitalist for admission. Emergency room department provider contacts patient's who verifies CODE STATUS as full code. Past Medical History Cardiac Medical History: Reports: Myocardial Infarction, Hyperlipidema, Hypertension Pulmonary Medical History: Reports: Chronic Obstructive Pulmonary Disease (COPD), Pneumonia, Sleep Apnea Denies: Tuberculosis Neurological Medical History: Reports: Other - Parkinson's disease Malignancy Medical History: Reports: Colorectal Cancer Psychiatric Medical History: Reports: Depression Past Surgical History Past Surgical History: Denies: Pacemaker Social History Information Source: [facility], [facility] Records Lives with: Intermediate Smoking Status: Former Smoker Frequency of Alcohol Use: None Hx Recreational Drug Use: No Drugs: None Hx Prescription Drug Abuse: No - Advance Directive Resuscitation Status: Full Code Family History Family History: Other - Unobtainable Parental Family History Reviewed: No Children Family History Reviewed: No Sibling(s) Family History Reviewed.: No Medication/Allergy Home Medications: Albuterol Sulfate [Proair HFA Inhalation Aerosol 8.5 gm MDI] 2 puff IH Q4 PRN 05/16/18 Aspirin [Aspirin 81 mg Chewable Tablet] 81 mg PO DAILY 05/16/18 Atorvastatin Calcium [Lipitor 40 mg Tablet] 40 mg PO QHS 05/16/18 Carbidopa/Levodopa [Sinemet 25-250 mg Tablet] 1 each PO TID 05/16/18 Cyproheptadine HCl 4 mg PO BID 05/16/18 Furosemide [Lasix 20 mg Tablet] 20 mg PO QAM 05/16/18 Lisinopril [Zestril] 2.5 mg PO DAILY 05/16/18 Metoprolol Succinate [Toprol Xl 25 mg Tab.sr] 12.5 mg PO BID 05/16/18 Ropinirole HCl [Requip 0.25 mg Tablet] 0.25 mg PO QHS 05/16/18 Tiotropium [place] [Spiriva Handihaler 5 Cap/Kit (18 Mcg/Cap)] 1 cap IH DAILY 05/16/18 Trazodone HCl [Desyrel 50 mg Tablet] 50 mg PO QHS 05/16/18 Venlafaxine HCl [Effexor] 100 mg PO BID 05/16/18 Azithromycin [Zithromax 250 mg Tablet] 500 mg PO QHS tablet 05/19/18 Cefdinir 300 mg PO BID #10 capsule 05/19/18 Allergies/Adverse Reactions: No Known Allergies Allergy (Verified 02/11/12 14:25) Review of Systems ROS unobtainable: Due to mental status Physical Exam Vital Signs: Temp Pulse Resp BP Pulse Ox 97.9 F 22 H 106/59 L 94 05/30/18 17:22 05/31/18 01:32 05/31/18 01:16 05/31/18 01:32 Intake & Output 05/29/18 05/30/18 05/31/18 11:59 11:59 11:59 Intake Total 2049 Balance 2049 Weight 70.2 kg General appearance: PRESENT: disheveled, severe distress, thin. ABSENT: cooperative Head exam: PRESENT: atraumatic, normocephalic Eye exam: PRESENT: conjunctiva pink, EOMI, PERRLA. ABSENT: scleral icterus Ear exam: PRESENT: normal external ear exam Mouth exam: PRESENT: dry mucosa, tongue midline Neck exam: ABSENT: carotid bruit, JVD, lymphadenopathy, thyromegaly Respiratory exam: PRESENT: accessory muscle use, crackles, prolonged expiratory phas, retraction, rhonchi, tachypnea Cardiovascular exam: PRESENT: RRR. ABSENT: diastolic murmur, rubs, systolic murmur Pulses: PRESENT: normal dorsalis pedis pul Vascular exam: PRESENT: normal capillary refill GI/Abdominal exam: PRESENT: normal bowel sounds, soft. ABSENT: distended, guarding, mass, organolmegaly, rebound, tenderness Rectal exam: PRESENT: deferred Extremities exam: PRESENT: full ROM, tenderness - Left lower extremity pain with range of motion. ABSENT: calf tenderness, clubbing, pedal edema Neurological exam: PRESENT: alert, altered, CN II-XII grossly intact. ABSENT: oriented to person, oriented to place, oriented to time, oriented to situation, reflexes normal Psychiatric exam: PRESENT: agitated, anxious Skin exam: PRESENT: skin tears - Left upper extremity Results Laboratory Results: 05/30/18 17:30 05/30/18 17:30 05/30/18 05/30/18 05/30/18 17:30 17:30 17:42 WBC 28.9 H RBC 3.70 L Hgb 10.4 L Hct 31.6 L MCV 86 MCH 28.1 MCHC 32.8 RDW 18.3 H Plt Count 243 Seg Neutrophils % Not Reportable Lymphocytes % Not Reportable Monocytes % Not Reportable Eosinophils % Not Reportable Basophils % Not Reportable Absolute Neutrophils Not Reportable Absolute Lymphocytes Not Reportable Absolute Monocytes Not Reportable Absolute Eosinophils Not Reportable Absolute Basophils Not Reportable Sodium 136.1 L Potassium 4.9 Chloride 93 L Carbon Dioxide 33 H Anion Gap 10 BUN 20 Creatinine 1.39 H Est GFR ( Amer) > 60 Est GFR (Non-Af Amer) 50 L Glucose 145 H Lactic Acid Calcium 8.9 Total Bilirubin 0.9 AST 25 ALT 18 L Alkaline Phosphatase 115 Total Protein 6.2 L Albumin 3.4 L Urine Color YELLOW Urine Appearance SLIGHTLY-CLOUDY Urine pH 6.0 Ur Specific [place] 1.014 Urine Protein NEGATIVE Urine Glucose (UA) NEGATIVE Urine Ketones TRACE H Urine Blood NEGATIVE Urine Nitrite NEGATIVE Ur Leukocyte Esterase NEGATIVE Urine WBC (Auto) 3 Urine RBC (Auto) 4 05/30/18 05/31/18 19:35 00:25 WBC RBC Hgb Hct MCV MCH MCHC RDW Plt Count Seg Neutrophils % Lymphocytes % Monocytes % Eosinophils % Basophils % Absolute Neutrophils Absolute Lymphocytes Absolute Monocytes Absolute Eosinophils Absolute Basophils Sodium Potassium Chloride Carbon Dioxide Anion Gap BUN Creatinine Est GFR ( Amer) Est GFR (Non-Af Amer) Glucose Lactic Acid 3.7 H 4.1 H Calcium Total Bilirubin AST ALT Alkaline Phosphatase Total Protein Albumin Urine Color Urine Appearance Urine pH Ur Specific [place] Urine Protein Urine Glucose (UA) Urine Ketones Urine Blood Urine Nitrite Ur Leukocyte Esterase Urine WBC (Auto) Urine RBC (Auto) Impressions: KUB X-Ray 05/30/18 00:00 IMPRESSION: No acute findings. Right femoral line. Cervical Spine CT 05/30/18 15:49 IMPRESSION: Mild degenerative disc disease and spondylosis. No acute finding. Chest X-Ray 05/30/18 15:49 IMPRESSION: Question Nupur lines at the right lung base. Upper lobes hyperlucent suggesting obstructive disease Head CT 05/30/18 15:49 IMPRESSION: Mild involutional changes of aging with no acute intracranial maria teresa ging finding. 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 EVIDENCE OF ACUTE STROKE: NO. Abdomen/Pelvis CT 05/30/18 22:44 IMPRESSION: Tiny nodular opacities particularly within the right lower lobe, likely due to an infectious/inflammatory process. Small left pleural effusion. Cholelithiasis. Mildly displaced and comminuted left intertrochanteric fracture. TECHNICAL DOCUMENTATION: Quality ID # 436: Final reports with documentation of one or more dose reduction techniques (e.g., Automated exposure control, adjustment of the mA and/or kV according to patient size, use of iterative reconstruction technique) copyright 2010 [employer]- All Rights Reserved Chest CT 05/30/18 22:44 IMPRESSION: Tiny nodular opacities particularly within the right lower lobe, likely due to an infectious/inflammatory process. Small left pleural effusion. Cholelithiasis. Mildly displaced and comminuted left intertrochanteric fracture. TECHNICAL DOCUMENTATION: Quality ID # [id number]: Final reports with documentation of one or more dose reduction techniques (e.g., Automated exposure control, adjustment of the mA and/or kV according to patient size, use of iterative reconstruction technique) copyright 2010 [employer]- All Rights Reserved Assessment & Plan - Diagnosis (1) Pneumonia Qualifiers: Laterality: right Lung location: lower lobe of lung Is this a current diagnosis for this admission?: Yes Plan: Right lung base infiltrate. Formally on Omnicef and azithromycin will change to cefepime and vancomycin given healthcare association. Follow-up CBC and blood culture (2) Sepsis Qualifiers: Sepsis type: sepsis due to unspecified organism Qualified Code(s): A41.9 - Sepsis, unspecified organism Is this a current diagnosis for this admission?: Yes Plan: Secondary to #1, IV fluid challenge with pressors as needed (3) Closed left hip fracture Qualifiers: Encounter type: initial encounter Qualified Code(s): S72.002A - Fracture of unspecified part of neck of left femur, initial encounter for closed fracture Is this a current diagnosis for this admission?: Yes Plan: Orthopedic surgery consulted, currently decompensated from pneumonia with sepsis complicated by encephalopathy. Postpone surgery pending improvement of respiratory status. (4) Encephalopathy acute Is this a current diagnosis for this admission?: Yes Plan: Likely secondary to #1, complicated by Parkinson's disease. Consider hospice consult given comorbidities if not significantly improved over the next 48 hours. - Time Time Spent: 50 to 70 Minutes
[2018-05-31] MEDS ORDERED: VANCOMYCIN HCL 1,250 MG in DEXTROSE 5%-WATER 250 ML IV ONE (02:10)
[2018-05-31] MEDS ORDERED: VANCOMYCIN HCL 0 MG in DEXTROSE 5%-WATER 250 ML IV NR (02:15)
[2018-05-31] MEDS ORDERED: NA PHOS,M-B/NA PHOS,DI-BA (ADULT) 133 ML ENEMA PR ONE ×2 (03:00→21:31)
[2018-05-31] MEDS ORDERED: CEFEPIME 1 GM/D5W RTU 1 GM/50 ML RTUPB IV ONE (03:00)
[2018-05-31 03:44] LABS: HEMATOCRIT 23.5 % (37.9-51.0); MEAN CORPUSCULAR HEMOGLOBIN 28.1 pg (27.0-33.4); MEAN CORPUSCULAR HGB CONC 32.9 g/dL (32.0-36.0); MEAN CORPUSCULAR VOLUME 86 fl (80-97); PLATELET COUNT 148 10^3/uL (150-450); RED BLOOD COUNT 2.75 10^6/uL (4.35-5.55); RED CELL DISTRIBUTION WIDTH 17.8 % (11.5-14.0); WHITE BLOOD COUNT 15.2 10^3/uL (4.0-10.5)
[2018-05-31 03:50] LABS: HEMOGLOBIN 7.7 g/dL (13.5-17.0)
[2018-05-31 03:52] LABS: ANION GAP 9 (5-19); BLOOD UREA NITROGEN 23 mg/dL (7-20); CALCIUM 7.7 mg/dL (8.4-10.2); CARBON DIOXIDE 30 mmol/L (22-30); CHLORIDE 96 mmol/L (98-107); GLUCOSE 138 mg/dL (75-110); POTASSIUM 5.6 mmol/L (3.6-5.0); SODIUM 134.9 mmol/L (137-145)
[2018-05-31 04:21] LABS: ABSOLUTE LYMPHOCYTES# (MANUAL) 0.3 10^3/uL (0.5-4.7); ABSOLUTE MONOCYTES # (MANUAL) 0.8 10^3/uL (0.1-1.4); ABSOLUTE NEUTROPHILS# (MANUAL) 14.1 10^3/uL (1.7-8.2); BAND NEUTROPHILS % (MANUAL) 1 % (3-5); BASOPHILS % (MANUAL) 0 % (0-2); EOSINOPHILS % (MANUAL) 0 % (0-6); LYMPHOCYTES % (MANUAL) 2 % (13-45); MONOCYTES % (MANUAL) 5 % (3-13); SEGMENTED NEUTROPHILS % (MAN) 92 % (42-78); TOTAL CELLS COUNTED 100
[2018-05-31 04:22] LABS: HYPOCHROMASIA 1+; PLATELET COMMENT ADEQUATE
[2018-05-31 04:48] LABS: CREATINE KINASE MB 1.23 ng/mL (<4.55)
[2018-05-31 04:51] LABS: TROPONIN I 0.038 ng/mL
[2018-05-31] MEDS: HEPARIN SOD (PORCINE) 5,000 UNIT/ML 1 ML SYRINGE SUBCUT SCH ×4 (05:28→23:32)
[2018-05-31] MEDS ORDERED: LANSOPRAZOLE 30 MG TAB.RAP.DR PO SCH (06:00)
[2018-05-31] MEDS ORDERED: NORMAL SALINE 1000 ML 1,000 ML IV ONE (06:00)
[2018-05-31] MEDS ORDERED: DEXTROSE 5%-WATER 250 ML with NOREPINEPHRINE BITARTRATE 4 MG IV PRN ×2 (06:28)
[2018-05-31] MEDS ORDERED: NOREPINEPHRINE BITARTRATE INJ/PF 4 MG/4 ML SDV IV ONE (06:38)
[2018-05-31] MEDS: KETOROLAC TROMETHAMINE INJ/PF 30 MG/1 ML SDV IV PRN ×2 (06:56→19:58)
--- NOTE | 2018-05-31 07:32 | PDOC CONSULTATION ---
Consultation Consult Date: 05/31/18 Consult reason:: Left intratrochanteric femur fracture History of Present Illness Admission Date/PCP: 05/31/18 01:22 ROCK BE DO History of Present Illness: EDIN MAX is a 77 year old male Patient is a 77-year-old white male with a myriad of medical comorbidities who was recently discharged from the hospital following a COPD flare. Is brought to the emergency room today with recurrent issues of COPD, sepsis, and a new diagnosis of a left intratrochanteric femur fracture. Orthopedics is consulted for the femur fracture. Past Medical History Cardiac Medical History: Reports: Myocardial Infarction, Hyperlipidema, Hypertension Pulmonary Medical History: Reports: Chronic Obstructive Pulmonary Disease (COPD ), Pneumonia, Sleep Apnea Denies: Tuberculosis Neurological Medical History: Reports: Other - Parkinson's disease Malignancy Medical History: Reports: Colorectal Cancer Psychiatric Medical History: Reports: Depression Past Surgical History Past Surgical History: Denies: Pacemaker Social History Information Source: [facility] Records Lives with: Snf Smoking Status: Former Smoker Frequency of Alcohol Use: None Hx Recreational Drug Use: No Drugs: None Hx Prescription Drug Abuse: No - Advance Directive Resuscitation Status: Full Code Family History Family History: Reviewed & Not Pertinent, Other - Unobtainable Parental Family History Reviewed: No Children Family History Reviewed: Unknown Sibling(s) Family History Reviewed.: Unknown Medication/Allergy Home Medications: Albuterol Sulfate [Proair HFA Inhalation Aerosol 8.5 gm MDI] 2 puff IH Q4 PRN 05/16/18 Aspirin [Aspirin 81 mg Chewable Tablet] 81 mg PO DAILY 05/16/18 Atorvastatin Calcium [Lipitor 40 mg Tablet] 40 mg PO QHS 05/16/18 Carbidopa/Levodopa [Sinemet 25-250 mg Tablet] 1 each PO TID 05/16/18 Cyproheptadine HCl 4 mg PO BID 05/16/18 Furosemide [Lasix 20 mg Tablet] 20 mg PO QAM 05/16/18 Lisinopril [Zestril] 2.5 mg PO DAILY 05/16/18 Metoprolol Succinate [Toprol Xl 25 mg Tab.sr] 12.5 mg PO BID 05/16/18 Ropinirole HCl [Requip 0.25 mg Tablet] 0.25 mg PO QHS 05/16/18 Tiotropium [place] [Spiriva Handihaler 5 Cap/Kit (18 Mcg/Cap)] 1 cap IH DAILY 05/16/18 Trazodone HCl [Desyrel 50 mg Tablet] 50 mg PO QHS 05/16/18 Venlafaxine HCl [Effexor] 100 mg PO BID 05/16/18 Azithromycin [Zithromax 250 mg Tablet] 500 mg PO QHS tablet 05/19/18 Cefdinir 300 mg PO BID #10 capsule 05/19/18 Allergies/Adverse Reactions: No Known Allergies Allergy (Verified 02/11/12 14:25) Review of Systems ROS unobtainable: Due to mental status Physical Exam Vital Signs: Temp Pulse Resp BP Pulse Ox 36.6 C 24 H 91/69 L 92 05/30/18 17:22 05/31/18 07:16 05/31/18 07:16 05/31/18 07:16 Intake & Output 05/30/18 05/31/18 06/01/18 06:59 06:59 06:59 Intake Total 4100 7 Balance 4100 7 Weight 70.2 kg Physical Exam: The patient is a tall lanky elderly white male lying on [facility]. He is moaning but does not respond to verbal or manual stimuli. General appearance: PRESENT: mild distress Head exam: PRESENT: normocephalic Respiratory exam: PRESENT: tachypnea Cardiovascular exam: PRESENT: tachycardia Pulses: PRESENT: +1 pedal pulses bilateral Vascular exam: PRESENT: normal capillary refill GI/Abdominal exam: PRESENT: soft Extremities exam: PRESENT: other - Right femoral triple-lumen catheter Musculoskeletal exam: PRESENT: other - Left lower extremity is externally rotated, shortened, and warm. There is brisk capillary refill. There is no response to squeezing of the great toe no response to request for motor function. Skin exam: PRESENT: dry, intact, warm. ABSENT: cyanosis, rash Results Laboratory Results: 05/31/18 03:20 05/31/18 03:20 05/30/18 05/30/18 05/30/18 17:30 17:30 17:42 WBC 28.9 H RBC 3.70 L Hgb 10.4 L Hct 31.6 L MCV 86 MCH 28.1 MCHC 32.8 RDW 18.3 H Plt Count 243 Seg Neutrophils % Not Reportable Lymphocytes % Not Reportable Monocytes % Not Reportable Eosinophils % Not Reportable Basophils % Not Reportable Absolute Neutrophils Not Reportable Absolute Lymphocytes Not Reportable Absolute Monocytes Not Reportable Absolute Eosinophils Not Reportable Absolute Basophils Not Reportable Sodium 136.1 L Potassium 4.9 Chloride 93 L Carbon Dioxide 33 H Anion Gap 10 BUN 20 Creatinine 1.39 H Est GFR ( Amer) > 60 Est GFR (Non-Af Amer) 50 L Glucose 145 H Lactic Acid Calcium 8.9 Total Bilirubin 0.9 AST 25 ALT 18 L Alkaline Phosphatase 115 Total Protein 6.2 L Albumin 3.4 L Urine Color YELLOW Urine Appearance SLIGHTLY-CLOUDY Urine pH 6.0 Ur Specific [place] 1.014 Urine Protein NEGATIVE Urine Glucose (UA) NEGATIVE Urine Ketones TRACE H Urine Blood NEGATIVE Urine Nitrite NEGATIVE Ur Leukocyte Esterase NEGATIVE Urine WBC (Auto) 3 Urine RBC (Auto) 4 05/30/18 05/31/18 05/31/18 19:35 00:25 03:20 WBC 15.2 H RBC 2.75 L Hgb 7.7 L D Hct 23.5 L MCV 86 MCH 28.1 MCHC 32.9 RDW 17.8 H Plt Count 148 L Seg Neutrophils % Not Reportable Lymphocytes % Not Reportable Monocytes % Not Reportable Eosinophils % Not Reportable Basophils % Not Reportable Absolute Neutrophils Not Reportable Absolute Lymphocytes Not Reportable Absolute Monocytes Not Reportable Absolute Eosinophils Not Reportable Absolute Basophils Not Reportable Sodium Potassium Chloride Carbon Dioxide Anion Gap BUN Creatinine Est GFR ( Amer) Est GFR (Non-Af Amer) Glucose Lactic Acid 3.7 H 4.1 H Calcium Total Bilirubin AST ALT Alkaline Phosphatase Total Protein Albumin Urine Color Urine Appearance Urine pH Ur Specific [place] Urine Protein Urine Glucose (UA) Urine Ketones Urine Blood Urine Nitrite Ur Leukocyte Esterase Urine WBC (Auto) Urine RBC (Auto) 05/31/18 05/31/18 03:20 03:20 WBC RBC Hgb Hct MCV MCH MCHC RDW Plt Count Seg Neutrophils % Lymphocytes % Monocytes % Eosinophils % Basophils % Absolute Neutrophils Absolute Lymphocytes Absolute Monocytes Absolute Eosinophils Absolute Basophils Sodium 134.9 L Potassium 5.6 H Chloride 96 L Carbon Dioxide 30 Anion Gap 9 BUN 23 H Creatinine 1.43 H Est GFR ( Amer) 58 L Est GFR (Non-Af Amer) 48 L Glucose 138 H Lactic Acid 4.9 H Calcium 7.7 L Total Bilirubin AST ALT Alkaline Phosphatase Total Protein Albumin Urine Color Urine Appearance Urine pH Ur Specific [place] Urine Protein Urine Glucose (UA) Urine Ketones Urine Blood Urine Nitrite Ur Leukocyte Esterase Urine WBC (Auto) Urine RBC (Auto) 05/31/18 05/31/18 03:20 03:20 Creatine Kinase 134 CK-MB (CK-2) 1.23 Troponin I 0.038 Impressions: KUB X-Ray 05/30/18 00:00 IMPRESSION: No acute findings. Right femoral line. Cervical Spine CT 05/30/18 15:49 IMPRESSION: Mild degenerative disc disease and spondylosis. No acute finding. Chest X-Ray 05/30/18 15:49 IMPRESSION: Question Nupur lines at the right lung base. Upper lobes hyperlucent suggesting obstructive disease Head CT 05/30/18 15:49 IMPRESSION: Mild involutional changes of aging with no acute intracranial imaging finding. 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 EVIDENCE OF ACUTE STROKE: NO. Abdomen/Pelvis CT 05/30/18 22:44 IMPRESSION: Tiny nodular opacities particularly within the right lower lobe, likely due to an infectious/inflammatory process. Small left pleural effusion. Cholelithiasis. Mildly displaced and comminuted left intertrochanteric fracture. TECHNICAL DOCUMENTATION: Quality ID # [id number]: Final reports with documentation of one or more dose reduction techniques (e.g., Automated exposure control, adjustment of the mA and/or kV according to patient size, use of iterative reconstruction technique) copyright 2010 [employer]- All Rights Reserved Chest CT 05/30/18 22:44 IMPRESSION: Tiny nodular opacities particularly within the right lower lobe, likely due to an infectious/inflammatory process. Small left pleural effusion. Cholelithiasis. Mildly displaced and comminuted left intertrochanteric fracture. TECHNICAL DOCUMENTATION: Quality ID # [id number]: Final reports with documentation of one or more dose reduction techniques (e.g., Automated exposure control, adjustment of the mA and/or kV according to patient size, use of iterative reconstruction technique) copyright 2010 [employer]- All Rights Reserved Status: Imported from PACS Assessment & Plan - Diagnosis (1) Intertrochanteric fracture of left femur Is this a current diagnosis for this admission?: Yes Plan: Patient with multiple comorbidities and now a fall with a left intratrochanteric femur fracture. I think the patient would be best served with an open reduction internal fixation of the fracture once his medical condition permits. - Time Time Spent: 50 to 70 Minutes Anticipated discharge: Other Within: Other
[2018-05-31] MEDS ORDERED: HALOPERIDOL LACTATE INJ 5 MG/1 ML VIAL IV ONE ×2 (09:00→11:45)
[2018-05-31] MEDS: DEXAMETHASONE SOD PHOS INJ 10 MG/1 ML VIAL IV SCH ×3 (09:20→21:11)
[2018-05-31] MEDS: CEFTRIAXONE 2 GM/D5W RTU 2 GM/50 ML RTUPB IV SCH ×2 (09:44→22:03)
[2018-05-31 09:49] LABS: INTERNATIONAL RATION (INR) 1.31; PROTHROMBIN TIME 16.9 SEC (11.4-15.4)
[2018-05-31] MEDS ORDERED: VENLAFAXINE HCL 25 MG TABLET PO SCH (10:00)
[2018-05-31] MEDS ORDERED: CARBIDOPA/LEVODOPA 25-250 MG TABLET PO SCH (10:00)
[2018-05-31] MEDS ORDERED: CYPROHEPTADINE HCL 4 MG TABLET PO SCH (10:00)
--- NOTE | 2018-05-31 10:29 | EKG REPORT ---
SEVERITY:- ABNORMAL ECG - Artifacts prevent accurate interpretation. Possible sinus with frequent APCs versus atrial flutter wi th valuable conduction, versus Atrial fibrillation. Nonspecific IVCD NONSPECIFIC INTRAVENTRICULAR CONDUCTION DELAY BORDERLINE ST DEPRESSION, ANTEROLATERAL LEADS : Confirmed by: Kristel Joyner 31-May-2018 10:29:09
[2018-05-31] MEDS: VANCOMYCIN HCL 500 MG in DEXTROSE 5%-WATER 100 ML IV SCH ×2 (10:34→21:42)
[2018-05-31] MEDS: ASPIRIN 81 MG TABLET, CHEWABLE PO SCH (10:43)
[2018-05-31] MEDS: VENLAFAXINE HCL 25 MG TABLET PO SCH ×2 (10:44→22:04)
--- NOTE | 2018-05-31 12:19 | RADIOLOGY REPORT (SQ) ---
EXAM DESCRIPTION: LUMBAR PUNCTURE; FLUORO/NEEDLE PLACEMENT/SPINE COMPLETED DATE/TIME: 05/31/2018 12:05 pm REASON FOR STUDY: unsuccessful in ER, difficult anatomy; AMS COMPARISON: 05/31/2018 FLUOROSCOPY TIME: 20 seconds 2 images saved to PACS. TECHNIQUE: Fluoroscopic guided lumbar puncture. LIMITATIONS: None. PROCEDURE: After written consent and assessment were obtained, the patient was brought into the fluo roscopy room and placed prone on the table. The patient's lower back was prepped in a sterile fashio n and an entry site was selected under live fluoroscopic guidance. The entry site was anesthetized wi th 1% lidocaine. A 22 gauge needle was advanced through the skin and into the thecal sac at the level of L3-4. Opening pressure was 23 cm H2O. After approximately 9 ml was drained, the needle was rem alice and a sterile bandage was placed of the site. Specimens were sent to the lab for testing. A fl uoroscopic spot image was saved to PACS confirming level access. FINDINGS: Clear CSF IMPRESSION: Lumbar puncture under fluoroscopy. No immediate complication. COMMENT: Patient medication list reviewed: Yes- Quality ID# [id number]:Eligible professional attests to doc umenting in the medical record they obtained, updated, or reviewed the patient's current medications. . Quality ID 145: Final reports for procedures using fluoroscopy that document radiation exposure christy winston, or exposure time and number of fluorographic images (if radiation exposure indices are not avail able) TECHNICAL DOCUMENTATION: JOB ID: [id number] [employer]- All Rights Reserved Reading location - IP/workstation name: [email or web address]
[2018-05-31 13:13] LABS: GLUCOSE,CSF 90 mg/dL (40-70); PROTEIN,CSF 48 mg/dL (12-60)
[2018-05-31 13:19] LABS: APPEARANCE ALL TUBES CLEAR; COLOR ALL TUBES COLORLESS; CSF TUBE NUMBER 1
[2018-05-31 13:20] LABS: RED BLOOD CELL,CSF 0 /uL (0-10); WHITE BLOOD CELL,CSF 3 /uL (0-5)
[2018-05-31 13:21] LABS: APPEARANCE ALL TUBES CLEAR; COLOR ALL TUBES COLORLESS; CSF TUBE NUMBER 4
[2018-05-31 13:22] LABS: RED BLOOD CELL,CSF 1 /uL (0-10); WHITE BLOOD CELL,CSF 2 /uL (0-5)
[2018-05-31] MEDS: CARBIDOPA/LEVODOPA 25-250 MG TABLET PO SCH ×2 (14:47→22:05)
[2018-05-31] MEDS ORDERED: CEFEPIME 1 GM/D5W RTU 1 GM/50 ML RTUPB IV SCH (18:00)
[2018-05-31] MEDS: LANSOPRAZOLE 30 MG TAB.RAP.DR PO SCH (18:31)
[2018-05-31] MEDS: NA PHOS,M-B/NA PHOS,DI-BA (ADULT) 133 ML ENEMA PR SCH (18:32)
[2018-05-31 20:52] LABS: ANION GAP 9 (5-19); BLOOD UREA NITROGEN 27 mg/dL (7-20); CALCIUM 7.5 mg/dL (8.4-10.2); CARBON DIOXIDE 25 mmol/L (22-30); CHLORIDE 103 mmol/L (98-107); GLUCOSE 134 mg/dL (75-110); POTASSIUM 5.1 mmol/L (3.6-5.0); SODIUM 137.3 mmol/L (137-145)
[2018-05-31] MEDS ORDERED: NORMAL SALINE 1000 ML 1,000 ML IV SCH ×2 (21:00→22:00)
[2018-05-31] MEDS: TRAZODONE HCL 50 MG TABLET PO SCH (21:48)
[2018-05-31] MEDS: ATORVASTATIN CALCIUM 40 MG TABLET PO SCH (21:50)
[2018-05-31] MEDS ORDERED: CEFTRIAXONE 1 GM/D5W RTU 1 GM/50 ML RTUPB IV SCH (22:00)
[2018-05-31] MEDS ORDERED: AZITHROMYCIN 500 MG in DEXTROSE 5%-WATER 250 ML IV SCH (22:00)
[2018-05-31] MEDS: ROPINIROLE HCL 0.25 MG TABLET PO SCH (22:04)
[2018-05-31] MEDS: HALOPERIDOL LACTATE INJ 5 MG/1 ML VIAL IV PRN (22:05)
[2018-05-31] MEDS ORDERED: OLANZAPINE INJ/PF 10 MG SDV IM ONE (22:09)
[2018-05-31] MEDS ORDERED: FENTANYL CITRATE INJ/PF 100 MCG/2 ML AMPUL IV ONE (22:10)
[2018-06-01] MEDS: FENTANYL CITRATE INJ/PF 100 MCG/2 ML AMPUL IV PRN ×5 (00:12→21:25)
[2018-06-01] MEDS ORDERED: OLANZAPINE INJ/PF 10 MG SDV IM ONE (01:00)
[2018-06-01] MEDS ORDERED: MINERAL OIL ENEMA 133 ML PR ONE (01:25)
[2018-06-01] MEDS: IPRATROPIUM/ALBUTEROL 0.5-2.5 MG/3 ML AMPUL NEB SCH ×4 (02:16→21:27)
[2018-06-01] MEDS: NORMAL SALINE 1000 ML 1,000 ML IV PRN ×3 (02:57→23:19)
[2018-06-01] MEDS: KETOROLAC TROMETHAMINE INJ/PF 30 MG/1 ML SDV IV PRN ×2 (05:34→10:49)
[2018-06-01] MEDS: DEXAMETHASONE SOD PHOS INJ 10 MG/1 ML VIAL IV SCH ×4 (06:20→23:16)
[2018-06-01] MEDS: NA PHOS,M-B/NA PHOS,DI-BA (ADULT) 133 ML ENEMA PR SCH (06:23)
[2018-06-01] MEDS: LANSOPRAZOLE 30 MG TAB.RAP.DR PO SCH ×2 (06:24→16:47)
[2018-06-01] MEDS: CARBIDOPA/LEVODOPA 25-250 MG TABLET PO SCH ×3 (06:25→23:30)
[2018-06-01] MEDS: HEPARIN SOD (PORCINE) 5,000 UNIT/ML 1 ML SYRINGE SUBCUT SCH ×3 (06:51→23:16)
[2018-06-01 07:18] LABS: HEMATOCRIT 20.5 % (37.9-51.0); MEAN CORPUSCULAR HEMOGLOBIN 28.6 pg (27.0-33.4); MEAN CORPUSCULAR HGB CONC 33.5 g/dL (32.0-36.0); MEAN CORPUSCULAR VOLUME 85 fl (80-97); PLATELET COUNT 102 10^3/uL (150-450); RED CELL DISTRIBUTION WIDTH 18.7 % (11.5-14.0); WHITE BLOOD COUNT 10.3 10^3/uL (4.0-10.5)
[2018-06-01 07:29] LABS: HEMOGLOBIN 6.9 g/dL (13.5-17.0)
[2018-06-01 07:41] LABS: ANION GAP 9 (5-19); BLOOD UREA NITROGEN 29 mg/dL (7-20); CALCIUM 7.1 mg/dL (8.4-10.2); CARBON DIOXIDE 24 mmol/L (22-30); CHLORIDE 107 mmol/L (98-107); GLUCOSE 119 mg/dL (75-110); POTASSIUM 4.4 mmol/L (3.6-5.0); SODIUM 139.7 mmol/L (137-145)
[2018-06-01 07:57] LABS: ABSOLUTE LYMPHOCYTES# (MANUAL) 0.3 10^3/uL (0.5-4.7); ABSOLUTE MONOCYTES # (MANUAL) 0.3 10^3/uL (0.1-1.4); ABSOLUTE NEUTROPHILS# (MANUAL) 9.7 10^3/uL (1.7-8.2); BASOPHILS % (MANUAL) 0 % (0-2); EOSINOPHILS % (MANUAL) 0 % (0-6); LYMPHOCYTES % (MANUAL) 3 % (13-45); MONOCYTES % (MANUAL) 3 % (3-13); SEGMENTED NEUTROPHILS % (MAN) 94 % (42-78); TOTAL CELLS COUNTED 100
[2018-06-01 07:58] LABS: ANISOCYTOSIS 2+; OVALOCYTES 1+; PLATELET COMMENT DECREASED; POIKILOCYTOSIS 1+; TEAR DROP CELLS SLIGHT
[2018-06-01] MEDS ORDERED: NORMAL SALINE 250 ML IV PRN ×2 (08:42)
[2018-06-01] MEDS ORDERED: CALCIUM GLUCONATE 1000 MG/10 ML INJ IV ONE (08:44)
[2018-06-01] MEDS: ASPIRIN 81 MG TABLET, CHEWABLE PO SCH (09:37)
[2018-06-01] MEDS: VENLAFAXINE HCL 25 MG TABLET PO SCH ×2 (09:38→23:18)
[2018-06-01] MEDS: VANCOMYCIN HCL 500 MG in DEXTROSE 5%-WATER 100 ML IV SCH ×2 (09:48→23:22)
[2018-06-01] MEDS: CEFTRIAXONE 2 GM/D5W RTU 2 GM/50 ML RTUPB IV SCH (09:49)
[2018-06-01 11:11] LABS: APPEARANCE,URINE SLIGHTLY-CLOUDY; BILIRUBIN,URINE NEGATIVE (NEGATIVE); COLOR,URINE YELLOW; GLUCOSE, URINE NEGATIVE (NEGATIVE); KETONES,URINE NEGATIVE (NEGATIVE); LEUKOCYTE ESTERASE,URINE NEGATIVE (NEGATIVE); NITRITE,URINE NEGATIVE (NEGATIVE); PROTEIN,URINE NEGATIVE (NEGATIVE); URINE SPECIFIC GRAVITY 1.034; UROBILINOGEN,URINE NEGATIVE mg/dL (<2.0)
[2018-06-01] MEDS ORDERED: CALCIUM GLUCONATE 2,000 MG in DEXTROSE 5%-WATER 100 ML IV ONE ×2 (12:00→15:00)
--- NOTE | 2018-06-01 16:45 | PDOC PROGRESS REPORT ---
Subjective Progress Note for:: 06/01/18 Subjective:: Patient was transferred out of the ER, he was Down there because there were no ICU beds. Blood pressures have improved and he is no longer on pressors. He remains encephalopathic. He is afebrile. Urine output is starting to chicken picker. He got another large volume fluid bolus this morning because his lactic acid level was still elevated. Reason For Visit: SEPSIS, PNA, LEFT HIP FRACTURE Physical Exam Vital Signs: Temp Pulse Resp BP Pulse Ox 97.6 F 85 16 109/47 L 93 06/01/18 14:52 06/01/18 14:52 06/01/18 14:52 06/01/18 14:52 06/01/18 14:52 Intake & Output 05/31/18 06/01/18 06/02/18 06:59 06:59 06:59 Intake Total 4100 4508 550 Output Total 230 Balance 4100 4278 550 Weight 70.2 kg 78.4 kg General appearance: PRESENT: disheveled, mild distress Mouth exam: PRESENT: dry mucosa, neck supple Teeth exam: PRESENT: poor dentation Respiratory exam: PRESENT: unlabored, other - Difficult to hear his breath sounds because of the groaning sounds that he was making when I woke him up. ABSENT: accessory muscle use, prolonged expiratory phas, tachypnea Cardiovascular exam: PRESENT: RRR, other - Difficult to hear his heart sounds because of a groaning sound he was making when I woke him up Pulses: PRESENT: normal carotid pulses Vascular exam: PRESENT: normal capillary refill GI/Abdominal exam: PRESENT: diminished bowel sounds, soft. ABSENT: distended, guarding, rebound, tenderness Extremities exam: PRESENT: joint swelling - Left hip and left thigh. ABSENT: clubbing, pedal edema Musculoskeletal exam: PRESENT: deformity - Left lower extremity is externally rotated, tenderness - Left hip Neurological exam: PRESENT: altered, other - Encephalopathic, arouses to mild stimuli Skin exam: PRESENT: dry, warm, other - He has a grayish color in general Results Laboratory Results: 06/01/18 05:57 06/01/18 05:57 05/31/18 05/31/18 06/01/18 20:20 20:29 01:49 WBC RBC Hgb Hct MCV MCH MCHC RDW Plt Count Seg Neutrophils % Lymphocytes % Monocytes % Eosinophils % Basophils % Absolute Neutrophils Absolute Lymphocytes Absolute Monocytes Absolute Eosinophils Absolute Basophils Sodium 137.3 Potassium 5.1 H Chloride 103 Carbon Dioxide 25 Anion Gap 9 BUN 27 H Creatinine 1.24 Est GFR ( Amer) > 60 Est GFR (Non-Af Amer) 57 L Glucose 134 H Lactic Acid 4.5 H 2.6 H Calcium 7.5 L Urine Color Urine Appearance Urine pH Ur Specific [place] Urine Protein Urine Glucose (UA) Urine Ketones Urine Blood Urine Nitrite Ur Leukocyte Esterase Urine WBC (Auto) Urine RBC (Auto) Blood Type Antibody Screen 06/01/18 06/01/18 06/01/18 05:57 05:57 08:50 WBC 10.3 RBC 2.40 L Hgb 6.9 L Hct 20.5 L MCV 85 MCH 28.6 MCHC 33.5 RDW 18.7 H Plt Count 102 L Seg Neutrophils % Not Reportable Lymphocytes % Not Reportable Monocytes % Not Reportable Eosinophils % Not Reportable Basophils % Not Reportable Absolute Neutrophils Not Reportable Absolute Lymphocytes Not Reportable Absolute Monocytes Not Reportable Absolute Eosinophils Not Reportable Absolute Basophils Not Reportable Sodium 139.7 Potassium 4.4 Chloride 107 Carbon Dioxide 24 Anion Gap 9 BUN 29 H Creatinine 1.17 Est GFR ( Amer) > 60 Est GFR (Non-Af Amer) > 60 Glucose 119 H Lactic Acid Calcium 7.1 L Urine Color Urine Appearance Urine pH Ur Specific [place] Urine Protein Urine Glucose (UA) Urine Ketones Urine Blood Urine Nitrite Ur Leukocyte Esterase Urine WBC (Auto) Urine RBC (Auto) Blood Type B POSITIVE Antibody Screen NEGATIVE 06/01/18 06/01/18 10:50 11:15 WBC RBC Hgb Hct MCV MCH MCHC RDW Plt Count Seg Neutrophils % Lymphocytes % Monocytes % Eosinophils % Basophils % Absolute Neutrophils Absolute Lymphocytes Absolute Monocytes Absolute Eosinophils Absolute Basophils Sodium Potassium Chloride Carbon Dioxide Anion Gap BUN Creatinine Est GFR ( Amer) Est GFR (Non-Af Amer) Glucose Lactic Acid 1.0 Calcium Urine Color YELLOW Urine Appearance SLIGHTLY-CLOUDY Urine pH 5.0 Ur Specific [place] 1.034 Urine Protein NEGATIVE Urine Glucose (UA) NEGATIVE Urine Ketones NEGATIVE Urine Blood LARGE H Urine Nitrite NEGATIVE Ur Leukocyte Esterase NEGATIVE Urine WBC (Auto) 4 Urine RBC (Auto) 37 Blood Type Antibody Screen 05/30/18 17:42 Catheterized Urine Urine Culture - Final NO GROWTH 2 DAYS 05/31/18 05/31/18 03:20 03:20 Creatine Kinase 134 CK-MB (CK-2) 1.23 Troponin I 0.038 Impressions: KUB X-Ray 05/30/18 00:00 IMPRESSION: No acute findings. Right femoral line. Cervical Spine CT 05/30/18 15:49 IMPRESSION: Mild degenerative disc disease and spondylosis. No acute finding. Chest X-Ray 05/30/18 15:49 IMPRESSION: Question Nupur lines at the right lung base. Upper lobes hyperlucent suggesting obstructive disease Head CT 05/30/18 15:49 IMPRESSION: Mild involutional changes of aging with no acute intracranial imaging finding. 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 EVIDENCE OF ACUTE STROKE: NO. Abdomen/Pelvis CT 05/30/18 22:44 IMPRESSION: Tiny nodular opacities particularly within the right lower lobe, likely due to an infectious/inflammatory process. Small left pleural effusion. Cholelithiasis. Mildly displaced and comminuted left intertrochanteric fracture. TECHNICAL DOCUMENTATION: Quality ID # [id number]: Final reports with documentation of one or more dose reduction techniques (e.g., Automated exposure control, adjustment of the mA and/or kV according to patient size, use of iterative reconstruction technique) copyright 2010 [employer]- All Rights Reserved Chest CT 05/30/18 22:44 IMPRESSION: Tiny nodular opacities particularly within the right lower lobe, likely due to an infectious/inflammatory process. Small left pleural effusion. Cholelithiasis. Mildly displaced and comminuted left intertrochanteric fracture. TECHNICAL DOCUMENTATION: Quality ID # [id number]: Final reports with documentation of one or more dose reduction techniques (e.g., Automated exposure control, adjustment of the mA and/or kV according to patient size, use of iterative reconstruction technique) copyright 2010 [employer]- All Rights Reserved Guidance Fluoroscopy 05/31/18 00:00 IMPRESSION: Lumbar puncture under fluoroscopy. No immediate complication. Lumbar Puncture 05/31/18 00:00 IMPRESSION: Lumbar puncture under fluoroscopy. No immediate complication. Assessment & Plan - Diagnosis (1) Encephalopathy acute Is this a current diagnosis for this admission?: Yes Plan: Metabolic encephalopathy due to multiple acute medical issues. Were addressing those issues as detailed below (2) Intertrochanteric fracture of left femur Qualifiers: Encounter type: initial encounter Fracture type: closed Fracture a lignment: displaced Qualified Code(s): S72.142A - Displaced intertrochanteric fracture of left femur, initial encounter for closed fracture Is this a current diagnosis for this admission?: Yes Plan: Will need surgery once his medical conditions have been stabilized. Orthopedics have been consulted. (3) Sepsis Qualifiers: Sepsis type: sepsis due to unspecified organism Qualified Code(s): A41.9 - Sepsis, unspecified organism Is this a current diagnosis for this admission?: Yes Plan: Due to pneumonia. He is received appropriate fluid boluses. Lactate is now normal. Urine output is improving. On broad-spectrum antibiotics. Blood cultures are pending. We gave him some blood because of hemodilution from all the fluids. (4) Pneumonia Qualifiers: Pneumonia type: due to unspecified organism Laterality: right Lung location: lower lobe of lung Qualified Code(s): J18.1 - Lobar pneumonia, unspecified organism Is this a current diagnosis for this admission?: Yes Plan: Suspected to be due to aspiration because the location on chest x-ray, but he was recently in the hospital for COPD exacerbation and pneumonia, and he is been in a facility. Covering him for healthcare associated pneumonia. I have adjusted his coverage today away from meningitis towards HCAP. - Time Time Spent with patient: 25-34 minutes
[2018-06-01] MEDS: HALOPERIDOL LACTATE INJ 5 MG/1 ML VIAL IV PRN (21:24)
[2018-06-01] MEDS: MEROPENEM 1 GM in NORMAL SALINE 50 ML IV SCH (21:31)
[2018-06-01] MEDS: TRAZODONE HCL 50 MG TABLET PO SCH (23:16)
[2018-06-01] MEDS: ATORVASTATIN CALCIUM 40 MG TABLET PO SCH (23:18)
[2018-06-01] MEDS: ROPINIROLE HCL 0.25 MG TABLET PO SCH (23:31)
[2018-06-02 00:13] LABS: HEMATOCRIT 23.4 % (37.9-51.0); MEAN CORPUSCULAR VOLUME 86 fl (80-97); RED BLOOD COUNT 2.74 10^6/uL (4.35-5.55); WHITE BLOOD COUNT 6.8 10^3/uL (4.0-10.5)
[2018-06-02 00:40] LABS: HEMOGLOBIN 7.9 g/dL (13.5-17.0); PLATELET COUNT 72 10^3/uL (150-450)
[2018-06-02] MEDS: IPRATROPIUM/ALBUTEROL 0.5-2.5 MG/3 ML AMPUL NEB SCH ×4 (01:44→19:44)
[2018-06-02] MEDS: DEXAMETHASONE SOD PHOS INJ 10 MG/1 ML VIAL IV SCH ×2 (02:55→09:36)
[2018-06-02] MEDS: MEROPENEM 1 GM in NORMAL SALINE 50 ML IV SCH ×3 (02:55→17:47)
[2018-06-02] MEDS: FENTANYL CITRATE INJ/PF 100 MCG/2 ML AMPUL IV PRN (05:14)
[2018-06-02] MEDS: HEPARIN SOD (PORCINE) 5,000 UNIT/ML 1 ML SYRINGE SUBCUT SCH ×3 (06:12→22:56)
[2018-06-02] MEDS: CARBIDOPA/LEVODOPA 25-250 MG TABLET PO SCH ×3 (06:13→22:59)
[2018-06-02] MEDS: LANSOPRAZOLE 30 MG TAB.RAP.DR PO SCH ×2 (06:13→17:47)
[2018-06-02] MEDS: ASPIRIN 81 MG TABLET, CHEWABLE PO SCH (09:15)
[2018-06-02] MEDS: VENLAFAXINE HCL 25 MG TABLET PO SCH ×2 (09:15→22:58)
[2018-06-02] MEDS: VANCOMYCIN HCL 750 MG in DEXTROSE 5%-WATER 250 ML IV SCH ×2 (10:45→23:04)
[2018-06-02] MEDS: NORMAL SALINE 1000 ML 1,000 ML IV PRN ×2 (10:46→20:44)
[2018-06-02 11:17] LABS: HEMATOCRIT 22.9 % (37.9-51.0); MEAN CORPUSCULAR HEMOGLOBIN 28.8 pg (27.0-33.4); MEAN CORPUSCULAR HGB CONC 33.7 g/dL (32.0-36.0); MEAN CORPUSCULAR VOLUME 85 fl (80-97); RED BLOOD COUNT 2.68 10^6/uL (4.35-5.55); WHITE BLOOD COUNT 4.7 10^3/uL (4.0-10.5)
[2018-06-02 11:35] LABS: ANION GAP 5 (5-19); BLOOD UREA NITROGEN 30 mg/dL (7-20); CALCIUM 7.4 mg/dL (8.4-10.2); CARBON DIOXIDE 26 mmol/L (22-30); CHLORIDE 110 mmol/L (98-107); GLUCOSE 113 mg/dL (75-110); POTASSIUM 4.1 mmol/L (3.6-5.0); SODIUM 140.7 mmol/L (137-145)
[2018-06-02 11:41] LABS: PLATELET COUNT 73 10^3/uL (150-450)
[2018-06-02 11:44] LABS: ABSOLUTE LYMPHOCYTES# (MANUAL) 0.2 10^3/uL (0.5-4.7); ABSOLUTE NEUTROPHILS# (MANUAL) 4.5 10^3/uL (1.7-8.2); BAND NEUTROPHILS % (MANUAL) 1 % (3-5); BASOPHILS % (MANUAL) 0 % (0-2); EOSINOPHILS % (MANUAL) 0 % (0-6); LYMPHOCYTES % (MANUAL) 5 % (13-45); MONOCYTES % (MANUAL) 0 % (3-13); SEGMENTED NEUTROPHILS % (MAN) 94 % (42-78); TOTAL CELLS COUNTED 100
[2018-06-02 11:46] LABS: ANISOCYTOSIS 2+; HEMOGLOBIN 7.7 g/dL (13.5-17.0); OVALOCYTES 1+; PLATELET COMMENT DECREASED; POIKILOCYTOSIS 1+
--- NOTE | 2018-06-02 15:31 | PDOC PROGRESS REPORT ---
Subjective Progress Note for:: 06/02/18 Subjective:: No adverse events overnight. No new complaints. Mental status has improved some. He still very somnolent but he is able to wake up and answer questions on verbal command. Pain is been well controlled. Reason For Visit: SEPSIS, PNA, LEFT HIP FRACTURE Physical Exam Vital Signs: Temp Pulse Resp BP Pulse Ox 98.2 F 86 14 102/51 L 96 06/02/18 11:28 06/02/18 14:02 06/02/18 14:02 06/02/18 11:28 06/02/18 14:02 Intake & Output 06/01/18 06/02/18 06/03/18 06:59 06:59 06:59 Intake Total 4508 2220 1050 Output Total 230 825 Balance 4278 1395 1050 Weight 78.4 kg 81.3 kg General appearance: PRESENT: disheveled, no apparent distress Mouth exam: PRESENT: dry mucosa, neck supple Teeth exam: PRESENT: poor dentation Respiratory exam: PRESENT: unlabored, rhonchi bilateral bases ABSENT: accessory muscle use, prolonged expiratory phase, tachypnea Cardiovascular exam: PRESENT: RRR S1-S2 Pulses: PRESENT: normal carotid pulses Vascular exam: PRESENT: normal capillary refill GI/Abdominal exam: PRESENT: diminished bowel sounds, soft. ABSENT: distended, guarding, rebound, tenderness Extremities exam: PRESENT: joint swelling - Left hip and left thigh. ABSENT: clubbing, pedal edema Musculoskeletal exam: PRESENT: deformity - Left lower extremity is externally rotated, tenderness - Left hip Neurological exam: PRESENT: Drowsy but arousable, oriented to person and place Skin exam: PRESENT: dry, warm, other - He has a grayish color in general Results Laboratory Results: 06/02/18 10:30 06/02/18 10:30 06/01/18 06/01/18 06/02/18 08:50 23:20 10:30 WBC 6.8 4.7 RBC 2.74 L 2.68 L Hgb 7.9 L 7.7 L Hct 23.4 L 22.9 L MCV 86 85 MCH 29.0 28.8 MCHC 34.0 33.7 RDW 18.0 H 18.0 H Plt Count 72 L 73 L Seg Neutrophils % Not Reportable Lymphocytes % Not Reportable Monocytes % Not Reportable Eosinophils % Not Reportable Basophils % Not Reportable Absolute Neutrophils Not Reportable Absolute Lymphocytes Not Reportable Absolute Monocytes Not Reportable Absolute Eosinophils Not Reportable Absolute Basophils Not Reportable Sodium Potassium Chloride Carbon Dioxide Anion Gap BUN Creatinine Est GFR ( Amer) Est GFR (Non-Af Amer) Glucose Calcium Blood Type B POSITIVE Antibody Screen NEGATIVE 06/02/18 10:30 WBC RBC Hgb Hct MCV MCH MCHC RDW Plt Count Seg Neutrophils % Lymphocytes % Monocytes % Eosinophils % Basophils % Absolute Neutrophils Absolute Lymphocytes Absolute Monocytes Absolute Eosinophils Absolute Basophils Sodium 140.7 Potassium 4.1 Chloride 110 H Carbon Dioxide 26 Anion Gap 5 BUN 30 H Creatinine 0.88 Est GFR ( Amer) > 60 Est GFR (Non-Af Amer) > 60 Glucose 113 H Calcium 7.4 L Blood Type Antibody Screen 05/31/18 05/31/18 03:20 03:20 Creatine Kinase 134 CK-MB (CK-2) 1.23 Troponin I 0.038 Impressions: KUB X-Ray 05/30/18 00:00 IMPRESSION: No acute findings. Right femoral line. Cervical Spine CT 05/30/18 15:49 IMPRESSION: Mild degenerative disc disease and spondylosis. No acute finding. Chest X-Ray 05/30/18 15:49 IMPRESSION: Question Nupur lines at the right lung base. Upper lobes hyperlucent suggesting obstructive disease Head CT 05/30/18 15:49 IMPRESSION: Mild involutional changes of aging with no acute intracranial imaging finding. 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 EVIDENCE OF ACUTE STROKE: NO. Abdomen/Pelvis CT 05/30/18 22:44 IMPRESSION: Tiny nodular opacities particularly within the right lower lobe, likely due to an infectious/inflammatory process. Small left pleural effusion. Cholelithiasis. Mildly displaced and comminuted left intertrochanteric fracture. TECHNICAL DOCUMENTATION: Quality ID # [id number]: Final reports with documentation of one or more dose reduction techniques (e.g., Automated exposure control, adjustment of the mA and/or kV according to patient size, use of iterative reconstruction technique) copyright 2011 [employer]- All Rights Reserved Chest CT 05/30/18 22:44 IMPRESSION: Tiny nodular opacities particularly within the right lower lobe, likely due to an infectious/inflammatory process. Small left pleural effusion. Cholelithiasis. Mildly displaced and comminuted left intertrochanteric fracture. TECHNICAL DOCUMENTATION: Quality ID # [id number]: Final reports with documentation of one or more dose reduction techniques (e.g., Automated exposure control, adjustment of the mA and/or kV according to patient size, use of iterative reconstruction technique) copyright 2011 [employer]- All Rights Reserved Guidance Fluoroscopy 05/31/18 00:00 IMPRESSION: Lumbar puncture under fluoroscopy. No immediate complication. Lumbar Puncture 05/31/18 00:00 IMPRESSION: Lumbar puncture under fluoroscopy. No immediate complication. Assessment & Plan - Diagnosis (1) Sepsis Qualifiers: Sepsis type: sepsis due to unspecified organism Qualified Code(s): A41.9 - Sepsis, unspecified organism Is this a current diagnosis for this admission?: Yes Plan: Secondary to pneumonia. Improving with treatment of the underlying condition. Blood pressures have stabilized. (2) Pneumonia Qualifiers: Pneumonia type: due to unspecified organism Laterality: right Lung location: lower lobe of lung Qualified Code(s): J18.1 - Lobar pneumonia, unsp ecified organism Is this a current diagnosis for this admission?: Yes Plan: Improving with antibiotics, will continue present antibiotic coverage at this time. Cultures are pending. (3) Encephalopathy acute Is this a current diagnosis for this admission?: Yes Plan: Metabolic encephalopathy secondary to sepsis due to pneumonia. Improving with treatment of the underlying conditions. (4) Intertrochanteric fracture of left femur Qualifiers: Encounter type: initial encounter Fracture type: closed Fracture alignment: displaced Qualified Code(s): S72.142A - Displaced intertrochanteric fracture of left femur, initial encounter for closed fracture Is this a current diagnosis for this admission?: Yes Plan: Will need surgery once his medical conditions have been stabilized. Orthopedics have been consulted. - Time Time Spent with patient: 25-34 minutes
[2018-06-02 16:39] LABS: ALPHA-1-GLOBULIN 1 5.8 % (1.1-6.6); ALPHA-2-GLOBULIN 6.1 % (3.0-12.6); CSF ALBUMIN 53.3 % (56.8-76.4); PRE ALBUMIN 4.6 % (2.2-7.1); TOTAL PROTEIN CSF PE 31.3 mg/dL (0.0-44.0)
[2018-06-02] MEDS: ATORVASTATIN CALCIUM 40 MG TABLET PO SCH (22:59)
[2018-06-02] MEDS: TRAZODONE HCL 50 MG TABLET PO SCH (22:59)
[2018-06-02] MEDS: ROPINIROLE HCL 0.25 MG TABLET PO SCH (22:59)
[2018-06-03] MEDS: IPRATROPIUM/ALBUTEROL 0.5-2.5 MG/3 ML AMPUL NEB SCH ×4 (02:14→19:36)
[2018-06-03] MEDS: MEROPENEM 1 GM in NORMAL SALINE 50 ML IV SCH ×3 (03:15→17:23)
[2018-06-03] MEDS: LANSOPRAZOLE 30 MG TAB.RAP.DR PO SCH ×2 (06:54→17:23)
[2018-06-03] MEDS: HEPARIN SOD (PORCINE) 5,000 UNIT/ML 1 ML SYRINGE SUBCUT SCH ×3 (06:54→21:30)
[2018-06-03] MEDS: CARBIDOPA/LEVODOPA 25-250 MG TABLET PO SCH ×3 (06:54→21:35)
[2018-06-03 07:18] LABS: ABSOLUTE LYMPHOCYTES (AUTO) 0.4 10^3/uL (0.5-4.7); ABSOLUTE MONOCYTES (AUTO) 0.3 10^3/uL (0.1-1.4); ABSOLUTE NEUT (AUTO) 4.6 10^3/uL (1.7-8.2); BASOPHILS % (AUTO) 0.2 % (0-2); HEMATOCRIT 22.9 % (37.9-51.0); LYMPHOCYTES % (AUTO) 6.8 % (13-45); MEAN CORPUSCULAR HEMOGLOBIN 29.3 pg (27.0-33.4); MEAN CORPUSCULAR HGB CONC 33.8 g/dL (32.0-36.0); MEAN CORPUSCULAR VOLUME 87 fl (80-97); MONOCYTES % (AUTO) 5.7 % (3-13); RED BLOOD COUNT 2.64 10^6/uL (4.35-5.55); RED CELL DISTRIBUTION WIDTH 17.6 % (11.5-14.0); SEGMENTED NEUTROPHILS % (AUTO) 87.3 % (42-78); TOTAL CELLS COUNTED % (AUTO) 100 %; WHITE BLOOD COUNT 5.2 10^3/uL (4.0-10.5)
[2018-06-03] MEDS: NORMAL SALINE 1000 ML 1,000 ML IV PRN ×2 (07:35→15:45)
[2018-06-03 07:58] LABS: PLATELET COUNT 81 10^3/uL (150-450)
[2018-06-03 08:04] LABS: HEMOGLOBIN 7.7 g/dL (13.5-17.0)
[2018-06-03] MEDS: ASPIRIN 81 MG TABLET, CHEWABLE PO SCH (09:13)
[2018-06-03] MEDS ORDERED: METOPROLOL TARTRATE PF/INJ 5 MG/5 ML SDV IV ONE (09:15)
[2018-06-03] MEDS: VENLAFAXINE HCL 25 MG TABLET PO SCH ×2 (10:32→21:34)
[2018-06-03] MEDS: VANCOMYCIN HCL 750 MG in DEXTROSE 5%-WATER 250 ML IV SCH ×2 (10:42→21:42)
--- NOTE | 2018-06-03 16:19 | PDOC PROGRESS REPORT ---
Subjective Progress Note for:: 06/03/18 Subjective:: No adverse events overnight. No new complaints. He is more alert and interactive today than he has been previously. He is eating and drinking without difficulty. No fevers. He does have a productive cough. Reason For Visit: SEPSIS, PNA, LEFT HIP FRACTURE Physical Exam Vital Signs: Temp Pulse Resp BP Pulse Ox 97.4 F 74 16 141/68 H 96 06/03/18 08:07 06/03/18 14:11 06/03/18 14:11 06/03/18 08:07 06/03/18 14:11 Intake & Output 06/02/18 06/03/18 06/04/18 06:59 06:59 06:59 Intake Total 2220 4463 300 Output Total 825 660 Balance 1395 3803 300 Weight 81.3 kg 84.2 kg General appearance: PRESENT: disheveled, no apparent distress Mouth exam: PRESENT: dry mucosa, neck supple Teeth exam: PRESENT: poor dentation Respiratory exam: PRESENT: unlabored, crackles right lower lobe ABSENT: accessory muscle use, prolonged expiratory phase, tachypnea Cardiovascular exam: PRESENT: RRR S1-S2 Pulses: PRESENT: normal carotid pulses Vascular exam: PRESENT: normal capillary refill GI/Abdominal exam: PRESENT: diminished bowel sounds, soft. ABSENT: distended, guarding, rebound, tenderness Extremities exam: PRESENT: joint swelling - Left hip and left thigh. ABSENT: clubbing, pedal edema Musculoskeletal exam: PRESENT: deformity - Left lower extremity is externally rotated, tenderness - Left hip Neurological exam: PRESENT: Awake, alert, oriented to person and place Skin exam: PRESENT: dry, warm, other - He has a grayish color in general Results Laboratory Results: 06/03/18 06:50 06/02/18 10:30 06/03/18 06:50 WBC 5.2 RBC 2.64 L Hgb 7.7 L Hct 22.9 L MCV 87 MCH 29.3 MCHC 33.8 RDW 17.6 H Plt Count 81 L Seg Neutrophils % 87.3 H Lymphocytes % 6.8 L Monocytes % 5.7 Eosinophils % 0.0 Basophils % 0.2 Absolute Neutrophils 4.6 Absolute Lymphocytes 0.4 L Absolute Monocytes 0.3 Absolute Eosinophils 0.0 Absolute Basophils 0.0 06/01/18 10:50 Catheterized Urine Urine Culture - Final NO GROWTH 2 DAYS 05/31/18 12:00 Cerebral Spinal Fluid - Csf Gram Stain - Final 05/31/18 12:00 Cerebral Spinal Fluid - Csf CSF Culture - Final NO GROWTH 3 DAYS 05/31/18 05/31/18 03:20 03:20 Creatine Kinase 134 CK-MB (CK-2) 1.23 Troponin I 0.038 Impressions: KUB X-Ray 05/30/18 00:00 IMPRESSION: No acute findings. Right femoral line. Cervical Spine CT 05/30/18 15:49 IMPRESSION: Mild degenerative disc disease and spondylosis. No acute finding. Chest X-Ray 05/30/18 15:49 IMPRESSION: Question Nupur lines at the right lung base. Upper lobes hyperlucent suggesting obstructive disease Head CT 05/30/18 15:49 IMPRESSION: Mild involutional changes of aging with no acute intracranial imaging finding. 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 EVIDENCE OF ACUTE STROKE: NO. Abdomen/Pelvis CT 05/30/18 22:44 IMPRESSION: Tiny nodular opacities particularly within the right lower lobe, likely due to an infectious/inflammatory process. Small left pleural effusion. Cholelithiasis. Mildly displaced and comminuted left intertrochanteric fracture. TECHNICAL DOCUMENTATION: Quality ID # [id number]: Final reports with documentation of one or more dose reduction techniques (e.g., Automated exposure control, adjustment of the mA and/or kV according to patient size, use of iterative reconstruction technique) copyright 2010 [employer]- All Rights Reserved Chest CT 05/30/18 22:44 IMPRESSION: Tiny nodular opacities particularly within the right lower lobe, likely due to an infectious/inflammatory process. Small left pleural effusion. Cholelithiasis. Mildly displaced and comminuted left intertrochanteric fracture. TECHNICAL DOCUMENTATION: Quality ID # [id number]: Final reports with documentation of one or more dose reduction techniques (e.g., Automated exposure control, adjustment of the mA and/or kV according to patient size, use of iterative reconstruction technique) copyright 2010 [employer]- All Rights Reserved Guidance Fluoroscopy 05/31/18 00:00 IMPRESSION: Lumbar puncture under fluoroscopy. No immediate complication. Lumbar Puncture 05/31/18 00:00 IMPRESSION: Lumbar puncture under fluoroscopy. No immediate complication. Assessment & Plan - Diagnosis (1) Sepsis Qualifiers: Sepsis type: sepsis due to unspecified organism Qualified Code(s): A41.9 - Sepsis, unspecified organism Is this a current diagnosis for this admission?: Yes Plan: Secondary to pneumonia. Improving with treatment of the underlying condition. Blood pressures have stabilized. (2) Pneumonia Qualifiers: Pneumonia type: due to unspecified organism Laterality: right Lung location: lower lobe of lung Qualified Code(s): J18.1 - Lobar pneumonia, unspecified organism Is this a current diagnosis for this admission?: Yes Plan: Improving with antibiotics, will continue present antibiotic coverage at this time. Cultures are pending. (3) Encephalopathy acute Is this a current diagnosis for this admission?: Yes Plan: Resolved. He is back to baseline mental status. This was a metabolic encephalopathy due to his acute medical issues, namely his sepsis and his pneumonia. (4) Intertrochanteric fracture of left femur Qualifiers: Encounter type: initial encounter Fracture type: closed Fracture alignment: displaced Qualified Code(s): S72.142A - Displaced intertrochanteric fracture of left femur, initial encounter for closed fracture Is this a current diagnosis for this admission?: Yes Plan: Will need surgery once his medical conditions have been stabilized. Orthopedics have been consulted. - Time Time Spent with patient: 25-34 minutes
[2018-06-03] MEDS: IPRATROPIUM/ALBUTEROL 0.5-2.5 MG/3 ML AMPUL NEB PRN (17:41)
[2018-06-03] MEDS: TRAZODONE HCL 50 MG TABLET PO SCH (21:35)
[2018-06-03] MEDS: ROPINIROLE HCL 0.25 MG TABLET PO SCH (21:35)
[2018-06-03] MEDS: ATORVASTATIN CALCIUM 40 MG TABLET PO SCH (21:35)
[2018-06-04] MEDS: MEROPENEM 1 GM in NORMAL SALINE 50 ML IV SCH ×3 (01:45→17:20)
[2018-06-04] MEDS: IPRATROPIUM/ALBUTEROL 0.5-2.5 MG/3 ML AMPUL NEB SCH ×4 (02:09→19:27)
[2018-06-04] MEDS: HALOPERIDOL LACTATE INJ 5 MG/1 ML VIAL IV PRN ×2 (03:07→14:22)
[2018-06-04 03:37] LABS: CSF PE GAMMA GLOBULIN 11.2 % (3.0-13.0); PROT ELEC MSPIKE Not Observed % (Not Observ)
[2018-06-04] MEDS: NORMAL SALINE 1000 ML 1,000 ML IV PRN ×2 (04:15→12:31)
[2018-06-04] MEDS: HEPARIN SOD (PORCINE) 5,000 UNIT/ML 1 ML SYRINGE SUBCUT SCH ×3 (06:04→21:26)
[2018-06-04] MEDS: CARBIDOPA/LEVODOPA 25-250 MG TABLET PO SCH ×3 (06:05→21:27)
[2018-06-04] MEDS: LANSOPRAZOLE 30 MG TAB.RAP.DR PO SCH ×2 (06:05→17:19)
[2018-06-04] MEDS: VENLAFAXINE HCL 25 MG TABLET PO SCH ×2 (09:15→21:26)
[2018-06-04] MEDS: ASPIRIN 81 MG TABLET, CHEWABLE PO SCH (09:16)
[2018-06-04] MEDS: VANCOMYCIN HCL 750 MG in DEXTROSE 5%-WATER 250 ML IV SCH ×2 (09:19→21:27)
[2018-06-04 09:29] LABS: HEMATOCRIT 27.7 % (37.9-51.0); HEMOGLOBIN 9.3 g/dL (13.5-17.0); MEAN CORPUSCULAR HEMOGLOBIN 29.4 pg (27.0-33.4); MEAN CORPUSCULAR HGB CONC 33.7 g/dL (32.0-36.0); MEAN CORPUSCULAR VOLUME 87 fl (80-97); RED BLOOD COUNT 3.17 10^6/uL (4.35-5.55); WHITE BLOOD COUNT 7.3 10^3/uL (4.0-10.5)
[2018-06-04 09:30] LABS: BLOOD UREA NITROGEN 26 mg/dL (7-20); CALCIUM 7.6 mg/dL (8.4-10.2); GLUCOSE 90 mg/dL (75-110); POTASSIUM 3.9 mmol/L (3.6-5.0)
[2018-06-04 09:35] LABS: VANCOMYCIN,TROUGH 13.4 ug/mL (5.0-20.0)
[2018-06-04 09:36] LABS: CHLORIDE 107 mmol/L (98-107)
[2018-06-04 09:40] LABS: ANION GAP 1 (5-19); CARBON DIOXIDE 31 mmol/L (22-30); SODIUM 138.9 mmol/L (137-145)
[2018-06-04 09:58] LABS: PLATELET COUNT 90 10^3/uL (150-450)
[2018-06-04] MEDS ORDERED: METOPROLOL TARTRATE PF/INJ 5 MG/5 ML SDV IV ONE (14:19)
--- NOTE | 2018-06-04 15:49 | PDOC PROGRESS REPORT ---
Subjective Subjective:: No adverse events overnight. Vital signs been stable. Oxygen saturation in the upper 90s on 5 L nasal cannula. He said this morning that he needed albuterol inhaler, we told him he is getting nebulizer treatments which have the same medicine. His heart rate is been a little bit elevated today or starting him back on his metoprolol. Reason For Visit: SEPSIS, PNA, LEFT HIP FRACTURE Physical Exam Vital Signs: Temp Pulse Resp BP Pulse Ox 97.1 F 133 H 20 129/61 H 97 06/04/18 13:57 06/04/18 13:59 06/04/18 13:31 06/04/18 13:59 06/04/18 13:59 Intake & Output 06/03/18 06/04/18 06/05/18 06:59 06:59 06:59 Intake Total 4463 4795 1538 Output Total 660 775 Balance 3803 4020 1538 Weight 84.2 kg 88.3 kg General appearance: PRESENT: disheveled, no apparent distress Mouth exam: PRESENT: dry mucosa, neck supple Teeth exam: PRESENT: poor dentation Respiratory exam: PRESENT: unlabored, crackles right lower lobe ABSENT: accessory muscle use, prolonged expiratory phase, tachypnea Cardiovascular exam: PRESENT: Irregularly irregular, S1-S2 Pulses: PRESENT: normal carotid pulses Vascular exam: PRESENT: normal capillary refill GI/Abdominal exam: PRESENT: diminished bowel sounds, soft. ABSENT: distended, guarding, rebound, tenderness Extremities exam: PRESENT: joint swelling - Left hip and left thigh. ABSENT: clubbing, pedal edema Musculoskeletal exam: PRESENT: deformity - Left lower extremity is externally rotated, tenderness - Left hip Neurological exam: PRESENT: Awake, alert, oriented to person and place Skin exam: PRESENT: dry, warm, other - He has a grayish color in general Results Laboratory Results: 06/04/18 08:50 06/04/18 08:50 05/31/18 06/04/18 06/04/18 12:00 08:50 08:50 WBC 7.3 RBC 3.17 L Hgb 9.3 L Hct 27.7 L MCV 87 MCH 29.4 MCHC 33.7 RDW 18.0 H Plt Count 90 L Sodium 138.9 Potassium 3.9 Chloride 107 Carbon Dioxide 31 H Anion Gap 1 L BUN 26 H Creatinine 0.78 Est GFR ( Amer) > 60 Est GFR (Non-Af Amer) > 60 Glucose 90 Calcium 7.6 L CSF Total Protein PEP 31.3 CSF Prealbumin 4.6 CSF Albumin 53.3 L CSF Teagr-2-Gvgrxrcz 5.8 CSF Xpdjm-7-Jshbgbth 6.1 CSF Beta Globulin 19.0 H CSF Gamma Globulin 11.2 CSF PEP M-Gaudencio Not Observed 06/04/18 08:50 WBC RBC Hgb Hct MCV MCH MCHC RDW Plt Count Sodium Potassium Chloride Carbon Dioxide Anion Gap BUN Creatinine Cancelled Est GFR ( Amer) Cancelled Est GFR (Non-Af Amer) Cancelled Glucose Calcium CSF Total Protein PEP CSF Prealbumin CSF Albumin CSF Bkedr-9-Jylbtmjb CSF Vrmgm-7-Uygmfcst CSF Beta Globulin CSF Gamma Globulin CSF PEP M-Gaudencio 06/01/18 10:50 Catheterized Urine Urine Culture - Final NO GROWTH 2 DAYS 05/31/18 05/31/18 03:20 03:20 Creatine Kinase 134 CK-MB (CK-2) 1.23 Troponin I 0.038 Impressions: KUB X-Ray 05/30/18 00:00 IMPRESSION: No acute findings. Right femoral line. Cervical Spine CT 05/30/18 15:49 IMPRESSION: Mild degenerative disc disease and spondylosis. No acute finding. Chest X-Ray 05/30/18 15:49 IMPRESSION: Question Nupur lines at the right lung base. Upper lobes hyperlucent suggesting obstructive disease Head CT 05/30/18 15:49 IMPRESSION: Mild involutional changes of aging with no acute intracranial imaging finding. 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 EVIDENCE OF ACUTE STROKE: NO. Abdomen/Pelvis CT 05/30/18 22:44 IMPRESSION: Tiny nodular opacities particularly within the right lower lobe, likely due to an infectious/inflammatory process. Small left pleural effusion. Cholelithiasis. Mildly displaced and comminuted left intertrochanteric fracture. TECHNICAL DOCUMENTATION: Quality ID # 436: Final reports with documentation of one or more dose reduction techniques (e.g., Automated exposure control, adjustment of the mA and/or kV according to patient size, use of iterative reconstruction technique) copyright 2011 [employer]- All Rights Reserved Chest CT 05/30/18 22:44 IMPRESSION: Tiny nodular opacities particularly within the right lower lobe, likely due to an infectious/inflammatory process. Small left pleural effusion. Cholelithiasis. Mildly displaced and comminuted left intertrochanteric fracture. TECHNICAL DOCUMENTATION: Quality ID # [id number]: Final reports with documentation of one or more dose reduction techniques (e.g., Automated exposure control, adjustment of the mA and/or kV according to patient size, use of iterative reconstruction technique) copyright 2011 [employer]- All Rights Reserved Guidance Fluoroscopy 05/31/18 00:00 IMPRESSION: Lumbar puncture under fluoroscopy. No immediate complication. Lumbar Puncture 05/31/18 00:00 IMPRESSION: Lumbar puncture under fluoroscopy. No immediate complication. Assessment & Plan - Diagnosis (1) Sepsis Qualifiers: Sepsis type: sepsis due to unspecified organism Qualified Code(s): A41.9 - Sepsis, unspecified organism Is this a current diagnosis for this admission?: Yes Plan: Secondary to pneumonia. Improving with treatment of the underlying condition. Blood pressures have stabilized. (2) Pneumonia Qualifiers: Pneumonia type: due to unspecified organism Laterality: right Lung location: lower lobe of lung Qualified Code(s): J18.1 - Lobar pneumonia, unspecified organism Is this a current diagnosis for this admission?: Yes Plan: Improving with antibiotics, will continue present antibiotic coverage at this time. Cultures are negative. Aggressive pulmonary toilet. If he continues to complain of dyspnea, I am going to get a CT scan of his chest. (3) Encephalopathy acute Is this a current diagnosis for this admission?: Yes Plan: Resolved. He is back to baseline mental status. This was a metabolic encephalopathy due to his acute medical issues, namely his sepsis and his pneumonia. (4) Intertrochanteric fracture of left femur Qualifiers: Encounter type: initial encounter Fracture type: closed Fracture alignm ent: displaced Qualified Code(s): S72.142A - Displaced intertrochanteric fracture of left femur, initial encounter for closed fracture Is this a current diagnosis for this admission?: Yes Plan: Will need surgery once his medical conditions have been stabilized. Orthopedics have been consulted. - Time Time Spent with patient: 25-34 minutes
--- NOTE | 2018-06-04 16:28 | RADIOLOGY REPORT (SQ) ---
EXAM DESCRIPTION: CTA CHEST COMPLETED DATE/TIME: 06/04/2018 4:16 pm REASON FOR STUDY: tachycardia, hypoxemia COMPARISON: 05/31/2018 TECHNIQUE: CT scan of the chest performed using helical scanning technique with dynamic intravenous contrast injection. Images reviewed with lung, soft tissue and bone windows. Reconstructed coronal and sagittal MPR images reviewed. Additional 3 dimensional post-processing performed to develop Maximal Intensity Projection images (VA P). All images stored on PACS. All CT scanners at this facility use dose modulation, iterative reconstruction, and/or weight based d osing when appropriate to reduce radiation dose to as low as reasonably achievable (ALARA). [facility]: Dose Right [facility]: CareDose [facility]: Dose Right [facility]: Teradose 4D [facility]: Relevant e-solution CONTRAST TYPE AND DOSE: contrast/concentration: Isovue 350.00 mg/ml; Total Contrast Delivered: 79.0 ml; Total Saline Delivered: 71.0 ml Contrast bolus optimized for the pulmonary arteries. Not diagnostic for the aorta. RENAL FUNCTION: GFR > 60. RADIATION DOSE: CT Rad equipment meets quality standard of care and radiation dose reduction techniq ues were employed. CTDIvol: 19.8 - 22.0 mGy. DLP: 876 mGy-cm. . LIMITATIONS: None. FINDINGS: LUNGS AND PLEURA: Marked increase in the left pleural effusion. New right pleural effusio n. Compressive atelectasis at both lung bases. AORTA AND GREAT VESSELS: No aneurysm. Contrast bolus not optimized for the aorta. HEART: No pericardial effusion. No significant coronary artery calcifications. PULMONARY ARTERIES: No emboli visualized in the main pulmonary arteries or the segmental branches. HILAR AND MEDIASTINAL STRUCTURES: No identified masses or abnormal nodes. HARDWARE: None in the chest. UPPER ABDOMEN: Gallstones. THYROID AND OTHER SOFT TISSUES: No masses. No adenopathy. BONES: No acute or significant finding. 3D MIPS: Confirm above findings. OTHER: No other significant finding. IMPRESSION: Marked increase in the left pleural effusion. New right pleural effusion. No pulmonary emboli. Gallstones. COMMENT: Quality ID # 436: Final reports with documentation of one or more dose reduction techniques (e.g., Automated exposure control, adjustment of the mA and/or kV according to patient size, use of iterative reconstruction technique) TECHNICAL DOCUMENTATION: JOB ID: [id number]- All Rights Reserved Reading location - IP/workstation name: [email or web address]
[2018-06-04] MEDS: TRAZODONE HCL 50 MG TABLET PO SCH (21:25)
[2018-06-04] MEDS: ATORVASTATIN CALCIUM 40 MG TABLET PO SCH (21:25)
[2018-06-04] MEDS: ROPINIROLE HCL 0.25 MG TABLET PO SCH (21:25)
[2018-06-04] MEDS: METOPROLOL SUCCINATE 25 MG TAB.SR.24H PO SCH (21:27)
[2018-06-04] MEDS: IPRATROPIUM/ALBUTEROL 0.5-2.5 MG/3 ML AMPUL NEB PRN (23:40)
[2018-06-05] MEDS: HALOPERIDOL LACTATE INJ 5 MG/1 ML VIAL IV PRN ×3 (00:01→12:50)
[2018-06-05] MEDS: IPRATROPIUM/ALBUTEROL 0.5-2.5 MG/3 ML AMPUL NEB SCH ×4 (02:11→19:36)
[2018-06-05] MEDS: MEROPENEM 1 GM in NORMAL SALINE 50 ML IV SCH ×3 (02:21→17:21)
[2018-06-05] MEDS: CARBIDOPA/LEVODOPA 25-250 MG TABLET PO SCH ×3 (05:01→21:54)
[2018-06-05] MEDS: HEPARIN SOD (PORCINE) 5,000 UNIT/ML 1 ML SYRINGE SUBCUT SCH (05:01)
[2018-06-05] MEDS: LANSOPRAZOLE 30 MG TAB.RAP.DR PO SCH ×2 (05:01→16:35)
[2018-06-05] MEDS: METOPROLOL SUCCINATE 25 MG TAB.SR.24H PO SCH ×2 (09:34→21:53)
[2018-06-05] MEDS: VENLAFAXINE HCL 25 MG TABLET PO SCH ×2 (09:35→21:55)
[2018-06-05] MEDS: ASPIRIN 81 MG TABLET, CHEWABLE PO SCH (09:35)
[2018-06-05] MEDS: VANCOMYCIN HCL 750 MG in DEXTROSE 5%-WATER 250 ML IV SCH ×2 (09:37→21:51)
[2018-06-05 10:10] LABS: HEMATOCRIT 27.2 % (37.9-51.0); HEMOGLOBIN 9.1 g/dL (13.5-17.0); MEAN CORPUSCULAR HEMOGLOBIN 29.1 pg (27.0-33.4); MEAN CORPUSCULAR HGB CONC 33.6 g/dL (32.0-36.0); MEAN CORPUSCULAR VOLUME 86 fl (80-97); RED BLOOD COUNT 3.15 10^6/uL (4.35-5.55); RED CELL DISTRIBUTION WIDTH 17.7 % (11.5-14.0); WHITE BLOOD COUNT 7.4 10^3/uL (4.0-10.5)
[2018-06-05 10:14] LABS: INTERNATIONAL RATION (INR) 1.17; PROTHROMBIN TIME 15.5 SEC (11.4-15.4)
[2018-06-05 10:31] LABS: PLATELET COUNT 89 10^3/uL (150-450)
--- NOTE | 2018-06-05 14:55 | RADIOLOGY REPORT (SQ) ---
EXAM DESCRIPTION: CHEST SINGLE VIEW COMPLETED DATE/TIME: 06/05/2018 2:42 pm REASON FOR STUDY: post thoracentesis COMPARISON: Chest CT earlier the same day. NUMBER OF VIEWS: One view. TECHNIQUE: Single frontal radiographic image of the chest acquired. LIMITATIONS: None. FINDINGS: LUNGS AND PLEURA: Small left pleural effusion. No pneumothorax. MEDIASTINUM AND HILAR STRUCTURES: Stable heart size and mediastinal structures. HEART AND VASCULAR STRUCTURES: Stable appearance. BONES: No acute findings. HARDWARE: None in the chest. OTHER: No other significant finding. IMPRESSION: No pneumothorax status post left thoracentesis. TECHNICAL DOCUMENTATION: JOB ID: [id number] [employer]- All Rights Reserved Reading location - IP/workstation name: [email or web address]
--- NOTE | 2018-06-05 15:00 | RADIOLOGY REPORT (SQ) ---
EXAM DESCRIPTION: U/S THORACENTESIS WITH IMAGING COMPLETED DATE/TIME: 06/05/2018 2:05 pm REASON FOR STUDY: left pleural effusion COMPARISON: None. LIMITATIONS: None. PROCEDURE: Procedure, risks, benefit, and alternative explained to patient who then gave written con sent. The posterior left chest wall was marked using ultrasound guidance. A time-out was called for correct marking verification. Chest prepped and draped using sterile technique. Local anesthesia ac hieved using 3.0 ml of 1% lidocaine injection. A 6fr Safe-T- Centesis set was introduced into the le ft pleural space. Fluid was aspirated. The catheter was removed and the entry site was covered with sterile bandage. No immediate complications noted. Images acquired during the procedure were stored on PACS. FINDINGS: ENTRY SITE: posterior left chest. FLUID VOLUME: 750 cc FLUID ANALYSIS: Straw OTHER: Fluid sent to the lab for testing. IMPRESSION: SUCCESSFUL THORACENTESIS USING ULTRASOUND GUIDANCE. COMMENT: Patient medication list reviewed: Yes- Quality ID# [id number]:Eligible professional attests to doc umenting in the medical record they obtained, updated, or reviewed the patient's current medications. TECHNICAL DOCUMENTATION: JOB ID: [id number] [employer]- All Rights Reserved Reading location - IP/workstation name: [email or web address]
[2018-06-05 15:33] LABS: FLUID APPEARANCE SLIGHTLY HAZY; FLUID COLOR LIGHT YELLOW; FLUID SOURCE LUNG; FLUID TYPE PLEURAL; FLUID VISCOSITY LIQUID
--- NOTE | 2018-06-05 16:36 | RADIOLOGY REPORT (SQ) ---
EXAM DESCRIPTION: CHEST SINGLE VIEW COMPLETED DATE/TIME: 06/05/2018 4:27 pm REASON FOR STUDY: post thoracentesis 2 HOUR S/P COMPARISON: Earlier the same day. NUMBER OF VIEWS: One view. TECHNIQUE: Single frontal radiographic image of the chest acquired. LIMITATIONS: None. FINDINGS: LUNGS AND PLEURA: No significant change. No pneumothorax. MEDIASTINUM AND HEART: Stable heart size and mediastinal structures. BONY STRUCTURES: No acute findings. HARDWARE: None. OTHER: No other significant finding. IMPRESSION: No pneumothorax status post left thoracentesis. TECHNICAL DOCUMENTATION: JOB ID: [id number] Reading location - IP/workstation name: [email or web address]-
--- NOTE | 2018-06-05 17:36 | PDOC PROGRESS REPORT ---
Subjective Progress Note for:: 06/05/18 Subjective:: No adverse events overnight. Breathing has been comfortable. Has some intermittent confusion but is easily redirected. No fevers. Pain is well controlled. Reason For Visit: SEPSIS, PNA, LEFT HIP FRACTURE Physical Exam Vital Signs: Temp Pulse Resp BP Pulse Ox 97.8 F 82 14 90/54 L 97 06/05/18 15:11 06/05/18 15:11 06/05/18 15:11 06/05/18 15:11 06/05/18 15:11 Intake & Output 06/04/18 06/05/18 06/06/18 06:59 06:59 06:59 Intake Total 4795 2937 655 Output Total 775 1150 425 Balance 4020 1787 230 Weight 88.3 kg 92.3 kg General appearance: PRESENT: disheveled, no apparent distress Mouth exam: PRESENT: dry mucosa, neck supple Teeth exam: PRESENT: poor dentation Respiratory exam: PRESENT: unlabored, crackles right lower lobe, diminished sounds left chest ABSENT: accessory muscle use, prolonged expiratory phase, tachypnea Cardiovascular exam: PRESENT: Irregularly irregular, S1-S2 Pulses: PRESENT: normal carotid pulses Vascular exam: PRESENT: normal capillary refill GI/Abdominal exam: PRESENT: diminished bowel sounds, soft. ABSENT: distended, guarding, rebound, tenderness Extremities exam: PRESENT: joint swelling - Left hip and left thigh. ABSENT: clubbing, pedal edema Musculoskeletal exam: PRESENT: deformity - Left lower extremity is externally rotated, tenderness - Left hip Neurological exam: PRESENT: Awake, alert, oriented to person and place Skin exam: PRESENT: dry, warm, other - He has a grayish color in general Results Laboratory Results: 06/05/18 09:40 06/04/18 08:50 06/05/18 06/05/18 09:40 13:46 WBC 7.4 RBC 3.15 L Hgb 9.1 L Hct 27.2 L MCV 86 MCH 29.1 MCHC 33.6 RDW 17.7 H Plt Count 89 L Fluid Type PLEURAL Fluid Source LUNG Fluid Color LIGHT YELLOW Fluid Appearance SLIGHTLY HAZY Fluid Viscosity LIQUID Fluid WBC 685 Fluid RBC 197 05/30/18 21:30 Blood Blood Culture - Final NO GROWTH IN 5 DAYS 05/30/18 19:35 Blood Blood Culture - Final NO GROWTH IN 5 DAYS 05/31/18 05/31/18 03:20 03:20 Creatine Kinase 134 CK-MB (CK-2) 1.23 Troponin I 0.038 Impressions: KUB X-Ray 05/30/18 00:00 IMPRESSION: No acute findings. Right femoral line. Cervical Spine CT 05/30/18 15:49 IMPRESSION: Mild degenerative disc disease and spondylosis. No acute finding. Head CT 05/30/18 15:49 IMPRESSION: Mild involutional changes of aging with no acute intracranial imaging finding. 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 EVIDENCE OF ACUTE STROKE: NO. Abdomen/Pelvis CT 05/30/18 22:44 IMPRESSION: Tiny nodular opacities particularly within the right lower lobe, likely due to an infectious/inflammatory process. Small left pleural effusion. Cholelithiasis. Mildly displaced and comminuted left intertrochanteric fracture. TECHNICAL DOCUMENTATION: Quality ID # 436: Final reports with documentation of one or more dose reduction techniques (e.g., Automated exposure control, adjustment of the mA and/or kV according to patient size, use of iterative reconstruction technique) copyright 2010 [employer]- All Rights Reserved Chest CT 05/30/18 22:44 IMPRESSION: Tiny nodular opacities particularly within the right lower lobe, likely due to an infectious/inflammatory process. Small left pleural effusion. Cholelithiasis. Mildly displaced and comminuted left intertrochanteric fracture. TECHNICAL DOCUMENTATION: Quality ID # 436: Final reports with documentation of one or more dose reduction techniques (e.g., Automated exposure control, adjustment of the mA and/or kV according to patient size, use of iterative reconstruction technique) copyright 2010 [employer]- All Rights Reserved Guidance Fluoroscopy 05/31/18 00:00 IMPRESSION: Lumbar puncture under fluoroscopy. No immediate complication. Lumbar Puncture 05/31/18 00:00 IMPRESSION: Lumbar puncture under fluoroscopy. No immediate complication. Chest/Abdomen CTA 06/04/18 00:00 IMPRESSION: Marked increase in the left pleural effusion. New right pleural effusion. No pulmonary emboli. Gallstones. Thoracentesis Ultrasound 06/05/18 00:00 IMPRESSION: SUCCESSFUL THORACENTESIS USING ULTRASOUND GUIDANCE. Chest X-Ray 06/05/18 16:20 IMPRESSION: No pneumothorax status post left thoracentesis. Assessment & Plan - Diagnosis (1) Sepsis Qualifiers: Sepsis type: sepsis due to unspecified organism Qualified Code(s): A41.9 - Sepsis, unspecified organism Is this a current diagnosis for this admission?: Yes Plan: Secondary to pneumonia. Improving with treatment of the underlying condition. Blood pressures have stabilized. Cultures remain negative (2) Pneumonia Qualifiers: Pneumonia type: due to unspecified organism Laterality: right Lung location: lower lobe of lung Qualified Code(s): J18.1 - Lobar pneumonia, unspecified organism Is this a current diagnosis for this admission?: Yes Plan: Improving with antibiotics, will continue present antibiotic coverage at this time. Cultures are negative. Aggressive pulmonary toilet. We will treat for a total of 7 days. (3) Encephalopathy acute Is this a current diagnosis for this admission?: Yes Plan: Resolved. He is back to baseline mental status. This was a metabolic encephalopathy due to his acute medical issues, namely his sepsis and his pneumonia. (4) Intertrochanteric fracture of left femur Qualifiers: Encounter type: initial encounter Fracture type: closed Fracture alignment: displaced Qualified Code(s): S72.142A - Displaced intertrochanteric fracture of left femur, initial encounter for closed fracture Is this a current diagnosis for this admission?: Yes Plan: Will need surgery once his medical conditions have been stabilized. Orthopedics have been consulted. (5) Pleural effusion, left Is this a current diagnosis for this admission?: Yes Plan: Plan for thoracentesis today. Fluid studies have been ordered. - Time Time Spent with patient: 25-34 minutes
[2018-06-05] MEDS: FENTANYL CITRATE INJ/PF 100 MCG/2 ML AMPUL IV PRN (21:48)
[2018-06-05] MEDS: ATORVASTATIN CALCIUM 40 MG TABLET PO SCH (21:54)
[2018-06-05] MEDS: TRAZODONE HCL 50 MG TABLET PO SCH (21:55)
[2018-06-05] MEDS: VENLAFAXINE HCL 75 MG TABLET PO SCH (21:55)
[2018-06-05] MEDS: ROPINIROLE HCL 0.25 MG TABLET PO SCH (21:55)
[2018-06-06] MEDS: IPRATROPIUM/ALBUTEROL 0.5-2.5 MG/3 ML AMPUL NEB SCH ×4 (01:34→19:52)
[2018-06-06] MEDS: MEROPENEM 1 GM in NORMAL SALINE 50 ML IV SCH ×3 (02:37→17:41)
[2018-06-06] MEDS: LANSOPRAZOLE 30 MG TAB.RAP.DR PO SCH ×2 (06:17→17:41)
[2018-06-06] MEDS: CARBIDOPA/LEVODOPA 25-250 MG TABLET PO SCH ×3 (06:17→21:21)
[2018-06-06] MEDS: VENLAFAXINE HCL 25 MG TABLET PO SCH ×2 (09:17→21:21)
[2018-06-06] MEDS: VENLAFAXINE HCL 75 MG TABLET PO SCH ×2 (09:17→21:21)
[2018-06-06] MEDS: ASPIRIN 81 MG TABLET, CHEWABLE PO SCH (09:17)
[2018-06-06] MEDS: VANCOMYCIN HCL 750 MG in DEXTROSE 5%-WATER 250 ML IV SCH ×2 (09:22→21:23)
[2018-06-06] MEDS: METOPROLOL SUCCINATE 25 MG TAB.SR.24H PO SCH ×2 (09:37→21:21)
[2018-06-06] MEDS: HEPARIN SOD (PORCINE) 5,000 UNIT/ML 1 ML SYRINGE SUBCUT SCH ×2 (13:16→21:23)
[2018-06-06] MEDS: CALCIUM CARBONATE 500 MG TABLET PO SCH (17:41)
--- NOTE | 2018-06-06 20:41 | PDOC PROGRESS REPORT ---
Subjective Progress Note for:: 06/06/18 Subjective:: Patient appears to be resting comfortably. Fingers and toes are blanched. Reason For Visit: SEPSIS, PNA, LEFT HIP FRACTURE Physical Exam Vital Signs: Temp Pulse Resp BP Pulse Ox 97.9 F 75 18 106/50 L 98 06/06/18 11:14 06/06/18 11:14 06/06/18 11:14 06/06/18 11:14 06/06/18 11:14 Intake & Output 06/05/18 06/06/18 06/07/18 06:59 06:59 06:59 Intake Total 2937 1455 655 Output Total 1150 1325 325 Balance 1787 130 330 Weight 92.3 kg 92.5 kg General appearance: PRESENT: no acute distress, well-developed Head exam: PRESENT: normocephalic Eye exam: PRESENT: conjunctiva pale. ABSENT: scleral icterus Ear exam: PRESENT: normal external ear exam Mouth exam: PRESENT: moist, tongue midline Neck exam: ABSENT: carotid bruit, JVD, lymphadenopathy Respiratory exam: PRESENT: clear to auscultation vickie, symmetrical, unlabored. ABSENT: accessory muscle use, rales, rhonchi, wheezes Cardiovascular exam: PRESENT: irregular rhythm Pulses: PRESENT: other - Unable to palpate dorsalis pedis pulses. Difficulty palpating left radial pulse. Normal right radial pulse. Vascular exam: PRESENT: other - All the patient's toes were blanched. The third and fourth fingers on the right hand and the third and fourth fingers on the left hand were blanched and cool. GI/Abdominal exam: PRESENT: normal bowel sounds, soft. ABSENT: distended, tenderness Rectal exam: PRESENT: deferred Extremities exam: ABSENT: pedal edema Neurological exam: PRESENT: alert, awake, oriented to person, oriented to place Psychiatric exam: PRESENT: appropriate affect. ABSENT: agitated, anxious Focused psych exam: ABSENT: delusional, restlessness Results Laboratory Results: 06/05/18 09:40 06/04/18 08:50 06/05/18 13:46 Fluid Type PLEURAL Fluid Source LUNG Fluid Color LIGHT YELLOW Fluid Appearance SLIGHTLY HAZY Fluid Viscosity LIQUID Fluid WBC 685 Fluid RBC 197 05/31/18 05/31/18 03:20 03:20 Creatine Kinase 134 CK-MB (CK-2) 1.23 Troponin I 0.038 Impressions: KUB X-Ray 05/30/18 00:00 IMPRESSION: No acute findings. Right femoral line. Cervical Spine CT 05/30/18 15:49 IMPRESSION: Mild degenerative disc disease and spondylosis. No acute finding. Head CT 05/30/18 15:49 IMPRESSION: Mild involutional changes of aging with no acute intracranial imaging finding. 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 EVIDENCE OF ACUTE STROKE: NO. Abdomen/Pelvis CT 05/30/18 22:44 IMPRESSION: Tiny nodular opacities particularly within the right lower lobe, likely due to an infectious/inflammatory process. Small left pleural effusion. Cholelithiasis. Mildly displaced and comminuted left intertrochanteric fracture. TECHNICAL DOCUMENTATION: Quality ID # 436: Final reports with documentation of one or more dose reduction techniques (e.g., Automated exposure control, adjustment of the mA and/or kV according to patient size, use of iterative reconstruction technique) copyright 2010 [employer]- All Rights Reserved Chest CT 05/30/18 22:44 IMPRESSION: Tiny nodular opacities particularly within the right lower lobe, likely due to an infectious/inflammatory process. Small left pleural effusion. Cholelithiasis. Mildly displaced and comminuted left intertrochanteric fracture. TECHNICAL DOCUMENTATION: Quality ID # 436: Final reports with documentation of one or more dose reduction techniques (e.g., Automated exposure control, adjustment of the mA and/or kV according to patient size, use of iterative reconstruction technique) copyright 2010 [employer]- All Rights Reserved Guidance Fluoroscopy 05/31/18 00:00 IMPRESSION: Lumbar puncture under fluoroscopy. No immediate complication. Lumbar Puncture 05/31/18 00:00 IMPRESSION: Lumbar puncture under fluoroscopy. No immediate complication. Chest/Abdomen CTA 06/04/18 00:00 IMPRESSION: Marked increase in the left pleural effusion. New right pleural effusion. No pulmonary emboli. Gallstones. Thoracentesis Ultrasound 06/05/18 00:00 IMPRESSION: SUCCESSFUL THORACENTESIS USING ULTRASOUND GUIDANCE. Chest X-Ray 06/05/18 16:20 IMPRESSION: No pneumothorax status post left thoracentesis. Assessment & Plan - Diagnosis (1) Sepsis Qualifiers: Sepsis type: sepsis due to unspecified organism Qualified Code(s): A41.9 - Sepsis, unspecified organism Is this a current diagnosis for this admission?: Yes Plan: All cultures were negative. The patient does remain on antibiotic therapy. Blood pressures are better and tend to remain at or just above 100 systolic. Pulse appears to be stable. (2) Closed left hip fracture Qualifiers: Encounter type: initial encounter Qualified Code(s): S72.002A - Fracture of unspecified part of neck of left femur, initial encounter for closed fracture Is this a current diagnosis for this admission?: Yes Plan: Patient currently not yet stable for surgery. Will notify orthopedic surgery when appropriate. (3) Encephalopathy acute Is this a current diagnosis for this admission?: Yes Plan: Based on recent progress notes the acute encephalopathy appears to have resolved. (4) Pleural effusion, left Is this a current diagnosis for this admission?: Yes Plan: Underwent thoracentesis with successful removal of fluid. Studies pending but no obvious evidence of infection in the pleural fluid. (5) Atrial fibrillation Qualifiers: Atrial fibrillation type: chronic Qualified Code(s): I48.2 - Chronic atrial fibrillation Is this a current diagnosis for this admission?: Yes Plan: Continue metoprolol. (6) Peripheral arterial disease Is this a current diagnosis for this admission?: Yes Plan: The patient has a history of coronary disease. It was noted today that he did not have palpable dorsalis pedis pulses however they were located with a Doppler ultrasound. He had some blanching of the fingers. It is likely that these are more chronic issues. He did not complain of any sharp pain in the toes or fingers. I believe he also suggested that he chronically has cold toes and fi ngers. - Time Time Spent with patient: 25-34 minutes Medications reviewed and adjusted accordingly: Yes Anticipated discharge: SNF
[2018-06-06] MEDS: ATORVASTATIN CALCIUM 40 MG TABLET PO SCH (21:21)
[2018-06-06] MEDS: ROPINIROLE HCL 0.25 MG TABLET PO SCH (21:21)
[2018-06-06] MEDS: TRAZODONE HCL 50 MG TABLET PO SCH (21:22)
[2018-06-07] MEDS: IPRATROPIUM/ALBUTEROL 0.5-2.5 MG/3 ML AMPUL NEB SCH ×4 (02:07→19:32)
[2018-06-07] MEDS: MEROPENEM 1 GM in NORMAL SALINE 50 ML IV SCH ×3 (02:11→17:29)
[2018-06-07] MEDS: KETOROLAC TROMETHAMINE INJ/PF 30 MG/1 ML SDV IV PRN (02:45)
[2018-06-07] MEDS: HEPARIN SOD (PORCINE) 5,000 UNIT/ML 1 ML SYRINGE SUBCUT SCH ×3 (06:44→21:00)
[2018-06-07] MEDS: CARBIDOPA/LEVODOPA 25-250 MG TABLET PO SCH ×3 (06:50→21:04)
[2018-06-07] MEDS: LANSOPRAZOLE 30 MG TAB.RAP.DR PO SCH ×2 (06:50→17:28)
[2018-06-07 07:14] LABS: ABSOLUTE LYMPHOCYTES (AUTO) 0.6 10^3/uL (0.5-4.7); ABSOLUTE MONOCYTES (AUTO) 0.7 10^3/uL (0.1-1.4); ABSOLUTE NEUT (AUTO) 6.4 10^3/uL (1.7-8.2); BASOPHILS % (AUTO) 0.3 % (0-2); EOSINOPHILS % (AUTO) 11.6 % (0-6); HEMATOCRIT 25.9 % (37.9-51.0); HEMOGLOBIN 8.8 g/dL (13.5-17.0); LYMPHOCYTES % (AUTO) 7.1 % (13-45); MEAN CORPUSCULAR HEMOGLOBIN 29.7 pg (27.0-33.4); MEAN CORPUSCULAR HGB CONC 34.2 g/dL (32.0-36.0); MEAN CORPUSCULAR VOLUME 87 fl (80-97); MONOCYTES % (AUTO) 7.7 % (3-13); PLATELET COUNT 104 10^3/uL (150-450); RED BLOOD COUNT 2.98 10^6/uL (4.35-5.55); RED CELL DISTRIBUTION WIDTH 17.5 % (11.5-14.0); SEGMENTED NEUTROPHILS % (AUTO) 73.3 % (42-78); TOTAL CELLS COUNTED % (AUTO) 100 %; WHITE BLOOD COUNT 8.7 10^3/uL (4.0-10.5)
[2018-06-07 07:31] LABS: BLOOD UREA NITROGEN 18 mg/dL (7-20); CALCIUM 7.4 mg/dL (8.4-10.2); CARBON DIOXIDE 35 mmol/L (22-30); GLUCOSE 86 mg/dL (75-110); POTASSIUM 4.3 mmol/L (3.6-5.0)
[2018-06-07 07:46] LABS: CHLORIDE 102 mmol/L (98-107); SODIUM 137.1 mmol/L (137-145)
[2018-06-07 07:49] LABS: ANION GAP 0 (5-19)
[2018-06-07] MEDS: VENLAFAXINE HCL 25 MG TABLET PO SCH ×2 (09:30→21:07)
[2018-06-07] MEDS: VENLAFAXINE HCL 75 MG TABLET PO SCH ×2 (09:30→21:05)
[2018-06-07] MEDS: VANCOMYCIN HCL 750 MG in DEXTROSE 5%-WATER 250 ML IV SCH ×2 (09:31→21:07)
[2018-06-07] MEDS: CALCIUM CARBONATE 500 MG TABLET PO SCH ×2 (09:31→17:29)
[2018-06-07] MEDS: ASPIRIN 81 MG TABLET, CHEWABLE PO SCH (09:31)
[2018-06-07] MEDS: METOPROLOL SUCCINATE 25 MG TAB.SR.24H PO SCH ×2 (09:32→21:04)
[2018-06-07] MEDS: IPRATROPIUM/ALBUTEROL 0.5-2.5 MG/3 ML AMPUL NEB PRN (17:35)
--- NOTE | 2018-06-07 20:38 | PDOC PROGRESS REPORT ---
Subjective Progress Note for:: 06/07/18 Subjective:: resting comfortably. Interacted appropriately. Pleased with the thought of proceeding with surgery for his left hip fracture. Reason For Visit: SEPSIS, PNA, LEFT HIP FRACTURE Physical Exam Vital Signs: Temp Pulse Resp BP Pulse Ox 98.9 F 86 16 103/42 L 92 06/07/18 12:12 06/07/18 13:18 06/07/18 13:18 06/07/18 12:12 06/07/18 13:18 Intake & Output 06/06/18 06/07/18 06/08/18 06:59 06:59 06:59 Intake Total 1455 1105 300 Output Total 1325 1000 Balance 130 105 300 Weight 92.5 kg 91.5 kg General appearance: PRESENT: no acute distress, cooperative, well-developed - But frail-appearing 77-year-old patient who looks older than his stated age. Head exam: PRESENT: normocephalic Eye exam: PRESENT: conjunctiva pale. ABSENT: scleral icterus Mouth exam: PRESENT: moist, tongue midline Neck exam: ABSENT: carotid bruit, lymphadenopathy, tenderness Respiratory exam: PRESENT: rales - Faint at bilateral bases, symmetrical, unlabored. ABSENT: accessory muscle use, stridor, wheezes Cardiovascular exam: PRESENT: RRR, +S1, +S2 Pulses: PRESENT: other - Markedly decreased pedal pulses. Vascular exam: PRESENT: other - Fingers and toes GI/Abdominal exam: PRESENT: normal bowel sounds, soft. ABSENT: distended, tenderness Rectal exam: PRESENT: deferred Extremities exam: ABSENT: pedal edema Musculoskeletal exam: PRESENT: deformity - Left leg. [place] and externally rotated.. ABSENT: ambulatory Neurological exam: PRESENT: alert, awake, oriented to person, oriented to place, oriented to situation Psychiatric exam: PRESENT: appropriate affect. ABSENT: agitated, anxious Focused psych exam: ABSENT: delusional, restlessness Results Laboratory Results: 06/07/18 06:50 06/07/18 06:50 06/05/18 06/05/18 06/07/18 13:46 13:46 06:50 WBC 8.7 RBC 2.98 L Hgb 8.8 L Hct 25.9 L MCV 87 MCH 29.7 MCHC 34.2 RDW 17.5 H Plt Count 104 L Seg Neutrophils % 73.3 Lymphocytes % 7.1 L Monocytes % 7.7 Eosinophils % 11.6 H Basophils % 0.3 Absolute Neutrophils 6.4 Absolute Lymphocytes 0.6 Absolute Monocytes 0.7 Absolute Eosinophils 1.0 H Absolute Basophils 0.0 Sodium Potassium Chloride Carbon Dioxide Anion Gap BUN Creatinine Est GFR ( Amer) Est GFR (Non-Af Amer) Glucose Calcium Fluid Glucose 91 Fluid LDH 91 06/07/18 06:50 WBC RBC Hgb Hct MCV MCH MCHC RDW Plt Count Seg Neutrophils % Lymphocytes % Monocytes % Eosinophils % Basophils % Absolute Neutrophils Absolute Lymphocytes Absolute Monocytes Absolute Eosinophils Absolute Basophils Sodium 137.1 Potassium 4.3 Chloride 102 Carbon Dioxide 35 H Anion Gap 0 L BUN 18 Creatinine 0.60 Est GFR ( Amer) > 60 Est GFR (Non-Af Amer) > 60 Glucose 86 Calcium 7.4 L Fluid Glucose Fluid LDH 05/31/18 05/31/18 03:20 03:20 Creatine Kinase 134 CK-MB (CK-2) 1.23 Troponin I 0.038 Impressions: KUB X-Ray 05/30/18 00:00 IMPRESSION: No acute findings. Right femoral line. Cervical Spine CT 05/30/18 15:49 IMPRESSION: Mild degenerative disc disease and spondylosis. No acute finding. Head CT 05/30/18 15:49 IMPRESSION: Mild involutional changes of aging with no acute intracranial imaging finding. 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 EVIDENCE OF ACUTE STROKE: NO. Abdomen/Pelvis CT 05/30/18 22:44 IMPRESSION: Tiny nodular opacities particularly within the right lower lobe, likely due to an infectious/inflammatory process. Small left pleural effusion. Cholelithiasis. Mildly displaced and comminuted left intertrochanteric fracture. TECHNICAL DOCUMENTATION: Quality ID # 436: Final reports with documentation of one or more dose reduction techniques (e.g., Automated exposure control, adjustment of the mA and/or kV according to patient size, use of iterative reconstruction technique) copyright 2011 [employer]- All Rights Reserved Chest CT 05/30/18 22:44 IMPRESSION: Tiny nodular opacities particularly within the right lower lobe, likely due to an infectious/inflammatory process. Small left pleural effusion. Cholelithiasis. Mildly displaced and comminuted left intertrochanteric fracture. TECHNICAL DOCUMENTATION: Quality ID # [id number]: Final reports with documentation of one or more dose reduction techniques (e.g., Automated exposure control, adjustment of the mA and/or kV according to patient size, use of iterative reconstruction technique) copyright 2010 [employer]- All Rights Reserved Guidance Fluoroscopy 05/31/18 00:00 IMPRESSION: Lumbar puncture under fluoroscopy. No immediate complication. Lumbar Puncture 05/31/18 00:00 IMPRESSION: Lumbar puncture under fluoroscopy. No immediate complication. Chest/Abdomen CTA 06/04/18 00:00 IMPRESSION: Marked increase in the left pleural effusion. New right pleural effusion. No pulmonary emboli. Gallstones. Thoracentesis Ultrasound 06/05/18 00:00 IMPRESSION: SUCCESSFUL THORACENTESIS USING ULTRASOUND GUIDANCE. Chest X-Ray 06/05/18 16:20 IMPRESSION: No pneumothorax status post left thoracentesis. Assessment & Plan - Diagnosis (1) Closed left hip fracture Qualifiers: Encounter type: initial encounter Qualified Code(s): S72.002A - Fracture of unspecified part of neck of left femur, initial encounter for closed fracture Is this a current diagnosis for this admission?: Yes Plan: The patient is markedly improved from admission and I feel he is appropriate for left hip fracture repair. I discussed this with Dr. Bonilla. We are going to have anesthesia evaluate the patient prior to a surgical time being scheduled. (2) Encephalopathy acute Is this a current diagnosis for this admission?: Yes Plan: Based on recent progress notes the acute encephalopathy appears to have resolved. The patient does have underlying Parkinson's disease as well as depression. The certainly could affect his mental status. Patient is definitely improved. (3) Pleural effusion, left Is this a current diagnosis for this admission?: Yes Plan: Thoracentesis successfully performed. (4) Atrial fibrillation Qualifiers: Atrial fibrillation type: chronic Qualified Code(s): I48.2 - Chronic atrial fibrillation Is this a current diagnosis for this admission?: Yes Plan: Stable with good rate control. No anticoagulation at this time. (5) Peripheral arterial disease Is this a current diagnosis for this admission?: Yes Plan: Certainly appears to be a chronic issue. The patient relates to this by reporting that his fingers and toes are always cold. Doppler was able to identify pulses in all 4 extremities. (6) Sepsis Qualifiers: Sepsis type: sepsis due to unspecified organism Qualified Code(s): A41.9 - Sepsis, unspecified organism Is this a current diagnosis for this admission?: Yes Plan: All cultures were negative. The patient will complete his meropenem and vancomycin therapy as ordered. Blood pressures are better and tend to remain at or just above 100 systolic. Pulse appears to be stable. Sepsis is resolved. - Time Time Spent with patient: 15-24 minutes Medications reviewed and adjusted accordingly: Yes Anticipated discharge: SNF
[2018-06-07] MEDS: ATORVASTATIN CALCIUM 40 MG TABLET PO SCH (21:05)
[2018-06-07] MEDS: TRAZODONE HCL 50 MG TABLET PO SCH (21:05)
[2018-06-07] MEDS: ROPINIROLE HCL 0.25 MG TABLET PO SCH (21:07)
[2018-06-08] MEDS: IPRATROPIUM/ALBUTEROL 0.5-2.5 MG/3 ML AMPUL NEB SCH ×4 (02:14→20:24)
[2018-06-08] MEDS: MEROPENEM 1 GM in NORMAL SALINE 50 ML IV SCH ×3 (02:42→17:54)
[2018-06-08] MEDS: HEPARIN SOD (PORCINE) 5,000 UNIT/ML 1 ML SYRINGE SUBCUT SCH ×3 (05:05→22:00)
[2018-06-08] MEDS: LANSOPRAZOLE 30 MG TAB.RAP.DR PO SCH ×2 (05:05→17:54)
[2018-06-08] MEDS: CARBIDOPA/LEVODOPA 25-250 MG TABLET PO SCH ×3 (05:06→21:58)
[2018-06-08 06:08] LABS: BLOOD UREA NITROGEN 18 mg/dL (7-20); CALCIUM 7.4 mg/dL (8.4-10.2); GLUCOSE 81 mg/dL (75-110)
[2018-06-08 06:09] LABS: CARBON DIOXIDE 35 mmol/L (22-30); CHLORIDE 98 mmol/L (98-107); POTASSIUM 4.3 mmol/L (3.6-5.0)
[2018-06-08 06:15] LABS: SODIUM 135.1 mmol/L (137-145)
[2018-06-08 06:19] LABS: ANION GAP 2 (5-19)
[2018-06-08] MEDS: HALOPERIDOL LACTATE INJ 5 MG/1 ML VIAL IV PRN (06:24)
[2018-06-08 06:53] LABS: ABSOLUTE LYMPHOCYTES (AUTO) 0.8 10^3/uL (0.5-4.7); ABSOLUTE MONOCYTES (AUTO) 0.7 10^3/uL (0.1-1.4); ABSOLUTE NEUT (AUTO) 6.3 10^3/uL (1.7-8.2); BASOPHILS % (AUTO) 0.5 % (0-2); EOSINOPHILS % (AUTO) 11.4 % (0-6); HEMATOCRIT 26.1 % (37.9-51.0); HEMOGLOBIN 8.7 g/dL (13.5-17.0); MEAN CORPUSCULAR HGB CONC 33.2 g/dL (32.0-36.0); MEAN CORPUSCULAR VOLUME 87 fl (80-97); MONOCYTES % (AUTO) 8.4 % (3-13); PLATELET COUNT 128 10^3/uL (150-450); RED BLOOD COUNT 2.99 10^6/uL (4.35-5.55); RED CELL DISTRIBUTION WIDTH 18.2 % (11.5-14.0); SEGMENTED NEUTROPHILS % (AUTO) 70.7 % (42-78); TOTAL CELLS COUNTED % (AUTO) 100 %
--- NOTE | 2018-06-08 07:03 | PDOC PROGRESS REPORT ---
Subjective Progress Note for:: 06/08/18 Reason For Visit: SEPSIS, PNA, LEFT HIP FRACTURE 77-year-old white male who is now hospital day 8 after being admitted for left intratrochanteric femur fracture. Initially the patient was deemed not to be a surgical candidate because of medical comorbidities. I was called by the hospitalist as night informing me that he was now considered an adequate surgical candidate and was seeking to have his hip surgery performed. I suggested that anesthesia be consulted to ensure that they concurred with his surgical candidacy. Not sure this happened but I did discuss the case with Dr. Soto this morning were awaiting his assessment. Physical Exam Vital Signs: Temp Pulse Resp BP Pulse Ox 36.4 C 102 H 17 113/52 L 86 L 06/08/18 03:48 06/08/18 06:53 06/08/18 03:48 06/08/18 03:48 06/08/18 03:48 Intake & Output 06/07/18 06/08/18 06/09/18 06:59 06:59 06:59 Intake Total 1105 1537 Output Total 1000 725 Balance 105 812 Weight 91.5 kg 94.7 kg Physical Exam: Patient is an elderly white male lying in a hospital bed. He is alert and responds to questions appropriate. General appearance: PRESENT: no acute distress, mild distress Head exam: PRESENT: normocephalic Respiratory exam: PRESENT: unlabored Cardiovascular exam: PRESENT: RRR Pulses: PRESENT: +1 pedal pulses bilateral Vascular exam: PRESENT: normal capillary refill GI/Abdominal exam: PRESENT: soft Rectal exam: PRESENT: deferred Extremities exam: PRESENT: other - Left lower extremity shortened and externally rotated. There is brisk capillary refill. Sensory examination is intact to light touch. Range of motion is not assessed. Neurological exam: PRESENT: awake, oriented to situation Results Laboratory Results: 06/08/18 05:30 06/05/18 06/05/18 06/07/18 13:46 13:46 06:50 WBC 8.7 RBC 2.98 L Hgb 8.8 L Hct 25.9 L MCV 87 MCH 29.7 MCHC 34.2 RDW 17.5 H Plt Count 104 L Seg Neutrophils % 73.3 Lymphocytes % 7.1 L Monocytes % 7.7 Eosinophils % 11.6 H Basophils % 0.3 Absolute Neutrophils 6.4 Absolute Lymphocytes 0.6 Absolute Monocytes 0.7 Absolute Eosinophils 1.0 H Absolute Basophils 0.0 Sodium Potassium Chloride Carbon Dioxide Anion Gap BUN Creatinine Est GFR ( Amer) Est GFR (Non-Af Amer) Glucose Calcium Ionized Calcium Yessenia Fluid Glucose 91 Fluid LDH 91 06/07/18 06/08/18 06/08/18 06:50 05:30 05:30 WBC RBC Hgb Hct MCV MCH MCHC RDW Plt Count Seg Neutrophils % Lymphocytes % Monocytes % Eosinophils % Basophils % Absolute Neutrophils Absolute Lymphocytes Absolute Monocytes Absolute Eosinophils Absolute Basophils Sodium 137.1 135.1 L Potassium 4.3 4.3 Chloride 102 98 Carbon Dioxide 35 H 35 H Anion Gap 0 L 2 L BUN 18 18 Creatinine 0.60 0.65 Est GFR ( Amer) > 60 > 60 Est GFR (Non-Af Amer) > 60 > 60 Glucose 86 81 Calcium 7.4 L 7.4 L Ionized Calcium Yessenia 1.04 L Fluid Glucose Fluid LDH 05/31/18 05/31/18 03:20 03:20 Creatine Kinase 134 CK-MB (CK-2) 1.23 Troponin I 0.038 Impressions: KUB X-Ray 05/30/18 00:00 IMPRESSION: No acute findings. Right femoral line. Cervical Spine CT 05/30/18 15:49 IMPRESSION: Mild degenerative disc disease and spondylosis. No acute finding. Head CT 05/30/18 15:49 IMPRESSION: Mild involutional changes of aging with no acute intracranial imaging finding. 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 EVIDENCE OF ACUTE STROKE: NO. Abdomen/Pelvis CT 05/30/18 22:44 IMPRESSION: Tiny nodular opacities particularly within the right lower lobe, likely due to an infectious/inflammatory process. Small left pleural effusion. Cholelithiasis. Mildly displaced and comminuted left intertrochanteric fracture. TECHNICAL DOCUMENTATION: Quality ID # 436: Final reports with documentation of one or more dose reduction techniques (e.g., Automated exposure control, adjustment of the mA and/or kV according to patient size, use of iterative reconstruction technique) copyright 2011 [employer]- All Rights Reserved Chest CT 05/30/18 22:44 IMPRESSION: Tiny nodular opacities particularly within the right lower lobe, likely due to an infectious/inflammatory process. Small left pleural effusion. Cholelithiasis. Mildly displaced and comminuted left intertrochanteric fracture. TECHNICAL DOCUMENTATION: Quality ID # [id number]: Final reports with documentation of one or more dose reduction techniques (e.g., Automated exposure control, adjustment of the mA and/or kV according to patient size, use of iterative reconstruction technique) copyright 2011 [employer]- All Rights Reserved Guidance Fluoroscopy 05/31/18 00:00 IMPRESSION: Lumbar puncture under fluoroscopy. No immediate complication. Lumbar Puncture 05/31/18 00:00 IMPRESSION: Lumbar puncture under fluoroscopy. No immediate complication. Chest/Abdomen CTA 06/04/18 00:00 IMPRESSION: Marked increase in the left pleural effusion. New right pleural effusion. No pulmonary emboli. Gallstones. Thoracentesis Ultrasound 06/05/18 00:00 IMPRESSION: SUCCESSFUL THORACENTESIS USING ULTRASOUND GUIDANCE. Chest X-Ray 06/05/18 16:20 IMPRESSION: No pneumothorax status post left thoracentesis. Status: Imported from PACS Assessment & Plan - Diagnosis (1) Intertrochanteric fracture of left femur Qualifiers: Encounter type: initial encounter Fracture type: closed Fracture alignment: displaced Qualified Code(s): S72.142A - Displaced intertrochanteric fracture of left femur, initial encounter for closed fracture Is this a current diagnosis for this admission?: Yes Plan: Plan to proceed with an open reduction internal fixation of a left intratrochanteric femur fracture under choice anesthesia pending anesthesia evaluation. - Time Time Spent with patient: 15-24 minutes Anticipated discharge: Other Within: Other
[2018-06-08 07:08] LABS: INTERNATIONAL RATION (INR) 1.14; PROTHROMBIN TIME 15.2 SEC (11.4-15.4)
[2018-06-08 07:09] LABS: PARTIAL THROMBOPLASTIN TIME 36.5 SEC (23.5-35.8)
[2018-06-08] MEDS ORDERED: RINGERS SOLUTION,LACTATED 1,000 ML IV PRN (07:11)
[2018-06-08] MEDS ORDERED: CEFAZOLIN 2 GM/D5W RTU 2 GM/50 ML RTUPB IV PRN (07:12)
[2018-06-08] MEDS ORDERED: TRANEXAMIC ACID INJ/PF 1,000 MG/10 ML SDV IV PRN (07:13)
[2018-06-08] MEDS ORDERED: GLUCAGON,HUMAN RECOMB 1 MG INJ SUBCUT PRN (07:29)
[2018-06-08] MEDS ORDERED: DEXTROSE 40% GEL 15 GM TUBE PO PRN ×2 (07:29)
[2018-06-08] MEDS ORDERED: DEXTROSE 50%-WATER 25 GM/50 ML DISP.SYRIN IV PRN (07:29)
[2018-06-08] MEDS: DEXTROSE 50%-WATER 25 GM/50 ML DISP.SYRIN IV PRN ×2 (08:05→12:06)
[2018-06-08] MEDS: VENLAFAXINE HCL 25 MG TABLET PO SCH ×2 (09:52→22:01)
[2018-06-08] MEDS: VENLAFAXINE HCL 75 MG TABLET PO SCH ×2 (09:52→21:59)
[2018-06-08] MEDS: VANCOMYCIN HCL 750 MG in DEXTROSE 5%-WATER 250 ML IV SCH ×2 (09:53→21:58)
[2018-06-08] MEDS: METOPROLOL SUCCINATE 25 MG TAB.SR.24H PO SCH ×2 (09:53→21:59)
[2018-06-08] MEDS: ASPIRIN 81 MG TABLET, CHEWABLE PO SCH (14:47)
[2018-06-08] MEDS: CALCIUM CARBONATE 500 MG TABLET PO SCH ×2 (14:47→17:54)
[2018-06-08] MEDS: TRAZODONE HCL 50 MG TABLET PO SCH (21:58)
[2018-06-08] MEDS: ATORVASTATIN CALCIUM 40 MG TABLET PO SCH (21:59)
[2018-06-08] MEDS: ROPINIROLE HCL 0.25 MG TABLET PO SCH (21:59)
--- NOTE | 2018-06-08 23:08 | PDOC PROGRESS REPORT ---
Subjective Progress Note for:: 06/08/18 Subjective:: Family members are present. The patient is resting comfortably in bed. Reason For Visit: SEPSIS, PNA, LEFT HIP FRACTURE Physical Exam Vital Signs: Temp Pulse Resp BP Pulse Ox 97.5 F 75 18 96/53 L 95 06/08/18 19:25 06/08/18 20:24 06/08/18 20:24 06/08/18 19:25 06/08/18 20:24 Intake & Output 06/07/18 06/08/18 06/09/18 06:59 06:59 06:59 Intake Total 1105 1537 824 Output Total 1000 725 825 Balance 105 812 -1 Weight 91.5 kg 94.7 kg General appearance: PRESENT: no acute distress, cooperative, well-developed - Frail-appearing 77-year-old patient who looks older than his stated age Head exam: PRESENT: normocephalic Eye exam: PRESENT: conjunctiva pale. ABSENT: scleral icterus Ear exam: PRESENT: normal external ear exam Respiratory exam: PRESENT: symmetrical, unlabored. ABSENT: rales, rhonchi, wheezes Cardiovascular exam: PRESENT: RRR, +S1, +S2 GI/Abdominal exam: PRESENT: normal bowel sounds, soft. ABSENT: tenderness Extremities exam: PRESENT: +1 edema - Left leg Neurological exam: PRESENT: alert, awake, oriented to person, oriented to place, oriented to situation Psychiatric exam: PRESENT: flat affect. ABSENT: agitated, anxious Focused psych exam: ABSENT: delusional, restlessness Results Laboratory Results: 06/08/18 05:30 06/08/18 10:29 06/08/18 06/08/18 06/08/18 05:30 05:30 05:30 WBC 9.0 RBC 2.99 L Hgb 8.7 L Hct 26.1 L MCV 87 MCH 29.0 MCHC 33.2 RDW 18.2 H Plt Count 128 L Seg Neutrophils % 70.7 Lymphocytes % 9.0 L Monocytes % 8.4 Eosinophils % 11.4 H Basophils % 0.5 Absolute Neutrophils 6.3 Absolute Lymphocytes 0.8 Absolute Monocytes 0.7 Absolute Eosinophils 1.0 H Absolute Basophils 0.0 Sodium 135.1 L Potassium 4.3 Chloride 98 Carbon Dioxide 35 H Anion Gap 2 L BUN 18 Creatinine 0.65 Est GFR ( Amer) > 60 Est GFR (Non-Af Amer) > 60 Glucose 81 Calcium 7.4 L Ionized Calcium Yessenia 1.04 L 06/08/18 10:29 WBC RBC Hgb Hct MCV MCH MCHC RDW Plt Count Seg Neutrophils % Lymphocytes % Monocytes % Eosinophils % Basophils % Absolute Neutrophils Absolute Lymphocytes Absolute Monocytes Absolute Eosinophils Absolute Basophils Sodium Potassium Chloride Carbon Dioxide Anion Gap BUN Creatinine Est GFR ( Amer) Est GFR (Non-Af Amer) Glucose 71 L Calcium Ionized Calcium Yessenia 06/05/18 13:46 Pleural Fluid Gram Stain - Final 06/05/18 13:46 Pleural Fluid Body Fluid Culture - Final NO AEROBIC OR ANAEROBIC ORGANISMS RECOVERED 05/31/18 05/31/18 03:20 03:20 Creatine Kinase 134 CK-MB (CK-2) 1.23 Troponin I 0.038 Impressions: KUB X-Ray 05/30/18 00:00 IMPRESSION: No acute findings. Right femoral line. Cervical Spine CT 05/30/18 15:49 IMPRESSION: Mild degenerative disc disease and spondylosis. No acute finding. Head CT 05/30/18 15:49 IMPRESSION: Mild involutional changes of aging with no acute intracranial imaging finding. 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 EVIDENCE OF ACUTE STROKE: NO. Abdomen/Pelvis CT 05/30/18 22:44 IMPRESSION: Tiny nodular opacities particularly within the right lower lobe, likely due to an infectious/inflammatory process. Small left pleural effusion. Cholelithiasis. Mildly displaced and comminuted left intertrochanteric fracture. TECHNICAL DOCUMENTATION: Quality ID # 436: Final reports with documentation of one or more dose reduction techniques (e.g., Automated exposure control, adjustment of the mA and/or kV according to patient size, use of iterative reconstruction technique) copyright 2010 [employer]- All Rights Reserved Chest CT 05/30/18 22:44 IMPRESSION: Tiny nodular opacities particularly within the right lower lobe, likely due to an infectious/inflammatory process. Small left pleural effusion. Cholelithiasis. Mildly displaced and comminuted left intertrochanteric fracture. TECHNICAL DOCUMENTATION: Quality ID # [id number]: Final reports with documentation of one or more dose reduction techniques (e.g., Automated exposure control, adjustment of the mA and/or kV according to patient size, use of iterative reconstruction technique) copyright 2010 [employer]- All Rights Reserved Guidance Fluoroscopy 05/31/18 00:00 IMPRESSION: Lumbar puncture under fluoroscopy. No immediate complication. Lumbar Puncture 05/31/18 00:00 IMPRESSION: Lumbar puncture under fluoroscopy. No immediate complication. Chest/Abdomen CTA 06/04/18 00:00 IMPRESSION: Marked increase in the left pleural effusion. New right pleural effusion. No pulmonary emboli. Gallstones. Thoracentesis Ultrasound 06/05/18 00:00 IMPRESSION: SUCCESSFUL THORACENTESIS USING ULTRASOUND GUIDANCE. Chest X-Ray 06/05/18 16:20 IMPRESSION: No pneumothorax status post left thoracentesis. Assessment & Plan - Diagnosis (1) Closed left hip fracture Qualifiers: Encounter type: initial encounter Qualified Code(s): S72.002A - Fracture of unspecified part of neck of left femur, initial encounter for closed fracture Is this a current diagnosis for this admission?: Yes Plan: Anesthesiology reviewed the patient. He is still quite deconditioned and they feel he would have significantly increased risk to undergo surgery at this time. After long discussion with the family we will continue to aggressively treat and reassess his risk. At this point he would be high risk no matter where he has his surgery. He will try and improve his underlying condition and then reassess. I did bring up the fact that if his functional status was quite poor before the fall then consideration of no surgery might be given. At this point we will continue treatment and reassess. (2) Encephalopathy acute Is this a current diagnosis for this admission?: Yes Plan: Improved. Appears to be back at baseline. (3) Pleural effusion, left Is this a current diagnosis for this admission?: Yes Plan: Continue to monitor. May need repeat thoracentesis. (4) Atrial fibrillation Qualifiers: Atrial fibrillation type: chronic Qualified Code(s): I48.2 - Chronic atrial fibrillation Is this a current diagnosis for this admission?: Yes Plan: Stable with good rate control. No anticoagulation at this time. (5) Peripheral arterial disease Is this a current diagnosis for this admission?: Yes Plan: Certainly appears to be a chronic issue. The patient relates to this by reporting that his fingers and toes are always cold. Doppler was able to identify pulses in all 4 extremities. (6) Sepsis Qualifiers: Sepsis type: sepsis due to unspecified organism Qualified Code(s): A41.9 - Sepsis, unspecified organism Is this a current diagnosis for this admission?: Yes Plan: All cultures were negative. The patient will complete his meropenem and vancomycin therapy as ordered. Blood pressures are better and tend to remain at or just above 100 systolic. Pulse appears to be stable. Sepsis is resolved. - Time Time Spent with patient: 35 or more minutes Medications reviewed and adjusted accordingly: Yes
[2018-06-09] MEDS: HALOPERIDOL LACTATE INJ 5 MG/1 ML VIAL IV PRN (01:22)
[2018-06-09] MEDS: IPRATROPIUM/ALBUTEROL 0.5-2.5 MG/3 ML AMPUL NEB SCH ×4 (02:14→20:07)
[2018-06-09] MEDS: CARBIDOPA/LEVODOPA 25-250 MG TABLET PO SCH ×3 (06:29→22:02)
[2018-06-09] MEDS: LANSOPRAZOLE 30 MG TAB.RAP.DR PO SCH ×2 (06:29→17:19)
[2018-06-09] MEDS: HEPARIN SOD (PORCINE) 5,000 UNIT/ML 1 ML SYRINGE SUBCUT SCH ×3 (06:30→22:01)
[2018-06-09] MEDS: FUROSEMIDE INJ/PF 20 MG/2 ML SDV IV SCH ×2 (09:40→22:01)
[2018-06-09] MEDS: VENLAFAXINE HCL 25 MG TABLET PO SCH ×2 (09:41→22:02)
[2018-06-09] MEDS: CALCIUM CARBONATE 500 MG TABLET PO SCH ×2 (09:41→17:19)
[2018-06-09] MEDS: VENLAFAXINE HCL 75 MG TABLET PO SCH ×2 (09:41→22:01)
[2018-06-09] MEDS: ASPIRIN 81 MG TABLET, CHEWABLE PO SCH (09:42)
[2018-06-09] MEDS: METOPROLOL SUCCINATE 25 MG TAB.SR.24H PO SCH ×2 (09:42→22:00)
[2018-06-09 12:16] LABS: ABSOLUTE EOSINOPHILS # (AUTO) 0.9 10^3/uL (0.0-0.6); ABSOLUTE LYMPHOCYTES (AUTO) 0.6 10^3/uL (0.5-4.7); ABSOLUTE MONOCYTES (AUTO) 0.7 10^3/uL (0.1-1.4); ABSOLUTE NEUT (AUTO) 5.7 10^3/uL (1.7-8.2); BASOPHILS % (AUTO) 0.4 % (0-2); HEMATOCRIT 26.5 % (37.9-51.0); LYMPHOCYTES % (AUTO) 7.4 % (13-45); MEAN CORPUSCULAR HEMOGLOBIN 29.5 pg (27.0-33.4); MEAN CORPUSCULAR HGB CONC 34.1 g/dL (32.0-36.0); MEAN CORPUSCULAR VOLUME 87 fl (80-97); MONOCYTES % (AUTO) 9.3 % (3-13); PLATELET COUNT 128 10^3/uL (150-450); RED BLOOD COUNT 3.06 10^6/uL (4.35-5.55); SEGMENTED NEUTROPHILS % (AUTO) 71.9 % (42-78); TOTAL CELLS COUNTED % (AUTO) 100 %; WHITE BLOOD COUNT 7.9 10^3/uL (4.0-10.5)
[2018-06-09 12:42] LABS: ALBUMIN 1.9 g/dL (3.5-5.0); BLOOD UREA NITROGEN 18 mg/dL (7-20); CALCIUM 7.3 mg/dL (8.4-10.2); CHLORIDE 91 mmol/L (98-107); GLUCOSE 84 mg/dL (75-110); PHOSPHORUS 2.1 mg/dL (2.5-4.5); POTASSIUM 4.1 mmol/L (3.6-5.0)
[2018-06-09 12:46] LABS: VANCOMYCIN,TROUGH 15.5 ug/mL (5.0-20.0)
[2018-06-09 12:48] LABS: SODIUM 130.9 mmol/L (137-145)
[2018-06-09 12:51] LABS: ANION GAP 1 (5-19)
[2018-06-09 12:52] LABS: CARBON DIOXIDE 39 mmol/L (22-30)
[2018-06-09] MEDS: KETOROLAC TROMETHAMINE INJ/PF 30 MG/1 ML SDV IV PRN (15:31)
[2018-06-09] MEDS: ATORVASTATIN CALCIUM 40 MG TABLET PO SCH (22:00)
[2018-06-09] MEDS: TRAZODONE HCL 50 MG TABLET PO SCH (22:01)
[2018-06-09] MEDS: ROPINIROLE HCL 0.25 MG TABLET PO SCH (22:02)
[2018-06-10] MEDS: IPRATROPIUM/ALBUTEROL 0.5-2.5 MG/3 ML AMPUL NEB SCH ×4 (02:01→19:42)
[2018-06-10] MEDS: LANSOPRAZOLE 30 MG TAB.RAP.DR PO SCH ×2 (05:10→18:25)
[2018-06-10] MEDS: CARBIDOPA/LEVODOPA 25-250 MG TABLET PO SCH ×3 (05:10→22:10)
[2018-06-10] MEDS: HEPARIN SOD (PORCINE) 5,000 UNIT/ML 1 ML SYRINGE SUBCUT SCH ×3 (05:10→21:38)
[2018-06-10 08:22] LABS: ABSOLUTE BASOPHILS # (AUTO) 0.1 10^3/uL (0.0-0.2); ABSOLUTE EOSINOPHILS # (AUTO) 0.6 10^3/uL (0.0-0.6); ABSOLUTE LYMPHOCYTES (AUTO) 0.7 10^3/uL (0.5-4.7); ABSOLUTE MONOCYTES (AUTO) 0.6 10^3/uL (0.1-1.4); ABSOLUTE NEUT (AUTO) 4.4 10^3/uL (1.7-8.2); BASOPHILS % (AUTO) 0.9 % (0-2); EOSINOPHILS % (AUTO) 9.7 % (0-6); HEMATOCRIT 25.7 % (37.9-51.0); HEMOGLOBIN 8.8 g/dL (13.5-17.0); LYMPHOCYTES % (AUTO) 10.7 % (13-45); MEAN CORPUSCULAR HEMOGLOBIN 29.4 pg (27.0-33.4); MEAN CORPUSCULAR HGB CONC 34.1 g/dL (32.0-36.0); MEAN CORPUSCULAR VOLUME 86 fl (80-97); PLATELET COUNT 124 10^3/uL (150-450); RED BLOOD COUNT 2.98 10^6/uL (4.35-5.55); RED CELL DISTRIBUTION WIDTH 17.5 % (11.5-14.0); SEGMENTED NEUTROPHILS % (AUTO) 69.7 % (42-78); TOTAL CELLS COUNTED % (AUTO) 100 %; WHITE BLOOD COUNT 6.3 10^3/uL (4.0-10.5)
[2018-06-10 08:36] LABS: ALANINE AMINOTRANSFERASE 27 U/L (21-72); ALKALINE PHOSPHATASE 80 U/L (38-126); ASPARTATE AMINO TRANSFERASE 29 U/L (17-59); BILIRUBIN,DIRECT 0.2 mg/dL (0.0-0.4); BILIRUBIN,TOTAL 1.2 mg/dL (0.2-1.3); BLOOD UREA NITROGEN 18 mg/dL (7-20); CALCIUM 7.5 mg/dL (8.4-10.2); GLUCOSE 81 mg/dL (75-110); POTASSIUM 4.2 mmol/L (3.6-5.0); TOTAL PROTEIN 4.4 g/dL (6.3-8.2)
[2018-06-10 08:41] LABS: CARBON DIOXIDE 39 mmol/L (22-30); CHLORIDE 92 mmol/L (98-107); SODIUM 130.4 mmol/L (137-145)
[2018-06-10 08:43] LABS: PREALBUMIN 8.8 mg/dL (17.6-36.0)
[2018-06-10 08:45] LABS: ANION GAP -1 (5-19)
--- NOTE | 2018-06-10 08:55 | RADIOLOGY REPORT (SQ) ---
EXAM DESCRIPTION: CHEST SINGLE VIEW COMPLETED DATE/TIME: 06/10/2018 8:18 am REASON FOR STUDY: Pleural effusion, pneumonia COMPARISON: 06/05/2018 NUMBER OF VIEWS: One view. TECHNIQUE: Single frontal radiographic image of the chest acquired. LIMITATIONS: None. FINDINGS: LUNGS AND PLEURA: Improved aeration in the left lower lobe. Residual small effusions. No pneumothorax. MEDIASTINUM AND HEART: Stable heart size and mediastinal structures. BONY STRUCTURES: No acute findings. HARDWARE: None. OTHER: No other significant finding. IMPRESSION: Residual small effusions. No pneumothorax. TECHNICAL DOCUMENTATION: JOB ID: [id number] Reading location - IP/workstation name: [email or web address]
[2018-06-10] MEDS: ASPIRIN 81 MG TABLET, CHEWABLE PO SCH (10:43)
[2018-06-10] MEDS: CALCIUM CARBONATE 500 MG TABLET PO SCH ×2 (10:43→18:25)
[2018-06-10] MEDS: VENLAFAXINE HCL 75 MG TABLET PO SCH ×2 (10:43→22:09)
[2018-06-10] MEDS: METOPROLOL SUCCINATE 25 MG TAB.SR.24H PO SCH ×2 (10:43→22:09)
[2018-06-10] MEDS: VENLAFAXINE HCL 25 MG TABLET PO SCH ×2 (10:43→22:13)
[2018-06-10] MEDS: FUROSEMIDE INJ/PF 20 MG/2 ML SDV IV SCH ×2 (10:44→22:10)
--- NOTE | 2018-06-10 20:12 | PDOC PROGRESS REPORT ---
Subjective Progress Note for:: 06/09/18 Subjective:: Patient is looking slightly better today. Still sleepy. The family had many questions since anesthesia feels that the patient is too high risk for surgery at this time. Reason For Visit: SEPSIS, PNA, LEFT HIP FRACTURE Physical Exam Vital Signs: Temp Pulse Resp BP Pulse Ox 97.3 F 86 18 100/48 L 98 06/09/18 15:54 06/09/18 15:54 06/09/18 15:54 06/09/18 15:54 06/09/18 15:54 Intake & Output 06/08/18 06/09/18 06/10/18 06:59 06:59 06:59 Intake Total 1537 1074 400 Output Total 725 1375 1100 Balance 812 -301 -700 Weight 94.7 kg 91.7 kg General appearance: PRESENT: no acute distress, thin, well-developed - But frail and very ill-appearing 77-year-old patient who looks much older than his stated age. Head exam: PRESENT: normocephalic Eye exam: PRESENT: conjunctiva pale. ABSENT: scleral icterus Ear exam: PRESENT: normal external ear exam Mouth exam: PRESENT: moist, tongue midline Teeth exam: PRESENT: poor dentation Respiratory exam: PRESENT: decreased breath sounds, prolonged expiratory phas, rhonchi - At bases, symmetrical. ABSENT: wheezes Cardiovascular exam: PRESENT: RRR, +S1, +S2 Pulses: PRESENT: other - Diminished dorsalis pedis pulses. Toes and fingers are not as blanched as they were yesterday. GI/Abdominal exam: PRESENT: normal bowel sounds, soft. ABSENT: distended, tenderness Rectal exam: PRESENT: deferred Gentrourinary exam: PRESENT: indwelling catheter Musculoskeletal exam: PRESENT: deformity - Left leg shorter with external rotation, other - Decreased muscle mass except left thigh which is swollen. ABSENT: ambulatory Neurological exam: PRESENT: awake - But was drifting in and out during the encounter., oriented to person, oriented to place, oriented to situation. ABSENT: alert Psychiatric exam: PRESENT: flat affect, other - Very ill appearing countenance Results Laboratory Results: 06/09/18 11:29 06/09/18 11:29 06/09/18 06/09/18 11:29 11:29 WBC 7.9 RBC 3.06 L Hgb 9.0 L Hct 26.5 L MCV 87 MCH 29.5 MCHC 34.1 RDW 18.0 H Plt Count 128 L Seg Neutrophils % 71.9 Lymphocytes % 7.4 L Monocytes % 9.3 Eosinophils % 11.0 H Basophils % 0.4 Absolute Neutrophils 5.7 Absolute Lymphocytes 0.6 Absolute Monocytes 0.7 Absolute Eosinophils 0.9 H Absolute Basophils 0.0 Sodium 130.9 L Potassium 4.1 Chloride 91 L Carbon Dioxide 39 H Anion Gap 1 L BUN 18 Creatinine 0.72 Est GFR ( Amer) > 60 Est GFR (Non-Af Amer) > 60 Glucose 84 Calcium 7.3 L Phosphorus 2.1 L Magnesium 2.2 Albumin 1.9 L 05/31/18 05/31/18 03:20 03:20 Creatine Kinase 134 CK-MB (CK-2) 1.23 Troponin I 0.038 Impressions: KUB X-Ray 05/30/18 00:00 IMPRESSION: No acute findings. Right femoral line. Cervical Spine CT 05/30/18 15:49 IMPRESSION: Mild degenerative disc disease and spondylosis. No acute finding. Head CT 05/30/18 15:49 IMPRESSION: Mild involutional changes of aging with no acute intracranial imaging finding. 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 EVIDENCE OF ACUTE STROKE: NO. Abdomen/Pelvis CT 05/30/18 22:44 IMPRESSION: Tiny nodular opacities particularly within the right lower lobe, likely due to an infectious/inflammatory process. Small left pleural effusion. Cholelithiasis. Mildly displaced and comminuted left intertrochanteric fracture. TECHNICAL DOCUMENTATION: Quality ID # 436: Final reports with documentation of one or more dose reduction techniques (e.g., Automated exposure control, adjustment of the mA and/or kV according to patient size, use of iterative reconstruction technique) copyright 2010 [employer] ([employer] All Rights Reserved Chest CT 05/30/18 22:44 IMPRESSION: Tiny nodular opacities particularly within the right lower lobe, likely due to an infectious/inflammatory process. Small left pleural effusion. Cholelithiasis. Mildly displaced and comminuted left intertrochanteric fracture. TECHNICAL DOCUMENTATION: Quality ID # 436: Final reports with documentation of one or more dose reduction techniques (e.g., Automated exposure control, adjustment of the mA and/or kV according to patient size, use of iterative reconstruction technique) copyright 2010 [employer]- All Rights Reserved Guidance Fluoroscopy 05/31/18 00:00 IMPRESSION: Lumbar puncture under fluoroscopy. No immediate complication. Lumbar Puncture 05/31/18 00:00 IMPRESSION: Lumbar puncture under fluoroscopy. No immediate complication. Chest/Abdomen CTA 06/04/18 00:00 IMPRESSION: Marked increase in the left pleural effusion. New right pleural effusion. No pulmonary emboli. Gallstones. Thoracentesis Ultrasound 06/05/18 00:00 IMPRESSION: SUCCESSFUL THORACENTESIS USING ULTRASOUND GUIDANCE. Chest X-Ray 06/05/18 16:20 IMPRESSION: No pneumothorax status post left thoracentesis. Assessment & Plan - Diagnosis (1) Closed left hip fracture Qualifiers: Encounter type: initial encounter Qualified Code(s): S72.002A - Fracture of unspecified part of neck of left femur, initial encounter for closed fracture Is this a current diagnosis for this admission?: Yes Plan: Anesthesia declined and feels that the patient is not a good surgical candidate. I reviewed this with the family. I told him that I would like to get more information from his previous hospital stay and we would revisit the subject tomorrow. (2) Encephalopathy acute Is this a current diagnosis for this admission?: Yes Plan: Much clearer. Aside from falling asleep intermittently he does participate in the conversation during the encounters. (3) Pleural effusion, left Is this a current diagnosis for this admission?: Yes Plan: Drained by thoracentesis. But with his very poor albumin it is likely to recur. (4) Atrial fibrillation Qualifiers: Atrial fibrillation type: chronic Qualified Code(s): I48.2 - Chronic atrial fibrillation Is this a current diagnosis for this admission?: Yes Plan: Continue current regimen. No anticoagulation at this time. (5) Peripheral arterial disease Is this a current diagnosis for this admission?: Yes Plan: Diminished dorsalis pedis pulses. (6) Sepsis Qualifiers: Sepsis type: sepsis due to unspecified organism Qualified Code(s): A41.9 - Sepsis, unspecified organism Is this a current diagnosis for this admission?: Yes Plan: All cultures were negative. The patient will complete his meropenem and vancomycin therapy as ordered. Blood pressures are better and tend to remain at or just above 100 systolic. Pulse appears to be stable. Sepsis is resolved. (7) Pneumonia Qualifiers: Pneumonia type: aspiration pneumonia Laterality: right Lung location: lower lobe of lung Is this a current diagnosis for this admission?: Yes Plan: Completed a course of antibiotic therapy. Evidently had a swallowing study [facility]. I will try to obtain a copy of that test. - Time Time Spent with patient: 35 or more minutes Medications reviewed and adjusted accordingly: Yes - Plan Summary Plan Summary: Because of his multiple comorbidities, recent infection and current condition surgery feels that he is not an appropriate candidate for surgical repair of his left hip.
[2018-06-10] MEDS: TRAZODONE HCL 50 MG TABLET PO SCH (22:09)
[2018-06-10] MEDS: ATORVASTATIN CALCIUM 40 MG TABLET PO SCH (22:09)
[2018-06-10] MEDS: ROPINIROLE HCL 0.25 MG TABLET PO SCH (22:10)
[2018-06-11] MEDS: IPRATROPIUM/ALBUTEROL 0.5-2.5 MG/3 ML AMPUL NEB SCH ×4 (03:11→19:38)
[2018-06-11] MEDS: HEPARIN SOD (PORCINE) 5,000 UNIT/ML 1 ML SYRINGE SUBCUT SCH ×3 (05:17→22:24)
[2018-06-11] MEDS: LANSOPRAZOLE 30 MG TAB.RAP.DR PO SCH ×2 (05:19→18:02)
[2018-06-11] MEDS: CARBIDOPA/LEVODOPA 25-250 MG TABLET PO SCH ×3 (05:19→22:24)
[2018-06-11 08:29] LABS: ABSOLUTE EOSINOPHILS # (AUTO) 0.3 10^3/uL (0.0-0.6); ABSOLUTE LYMPHOCYTES (AUTO) 0.8 10^3/uL (0.5-4.7); ABSOLUTE MONOCYTES (AUTO) 0.6 10^3/uL (0.1-1.4); ABSOLUTE NEUT (AUTO) 5.2 10^3/uL (1.7-8.2); BASOPHILS % (AUTO) 0.5 % (0-2); EOSINOPHILS % (AUTO) 4.3 % (0-6); HEMATOCRIT 24.3 % (37.9-51.0); HEMOGLOBIN 8.3 g/dL (13.5-17.0); LYMPHOCYTES % (AUTO) 11.7 % (13-45); MEAN CORPUSCULAR HEMOGLOBIN 29.4 pg (27.0-33.4); MEAN CORPUSCULAR HGB CONC 34.2 g/dL (32.0-36.0); MEAN CORPUSCULAR VOLUME 86 fl (80-97); MONOCYTES % (AUTO) 8.7 % (3-13); PLATELET COUNT 123 10^3/uL (150-450); RED BLOOD COUNT 2.82 10^6/uL (4.35-5.55); SEGMENTED NEUTROPHILS % (AUTO) 74.8 % (42-78); TOTAL CELLS COUNTED % (AUTO) 100 %; WHITE BLOOD COUNT 6.9 10^3/uL (4.0-10.5)
[2018-06-11 08:51] LABS: ALBUMIN 1.8 g/dL (3.5-5.0); BLOOD UREA NITROGEN 18 mg/dL (7-20); CALCIUM 7.4 mg/dL (8.4-10.2); CHLORIDE 90 mmol/L (98-107); GLUCOSE 82 mg/dL (75-110); PHOSPHORUS 2.8 mg/dL (2.5-4.5); POTASSIUM 4.4 mmol/L (3.6-5.0)
[2018-06-11 09:08] LABS: ANION GAP 1 (5-19)
[2018-06-11 09:20] LABS: CARBON DIOXIDE 40 mmol/L (22-30)
[2018-06-11] MEDS: VENLAFAXINE HCL 75 MG TABLET PO SCH ×2 (10:28→22:23)
[2018-06-11] MEDS: METOPROLOL SUCCINATE 25 MG TAB.SR.24H PO SCH ×2 (10:28→22:23)
[2018-06-11] MEDS: VENLAFAXINE HCL 25 MG TABLET PO SCH ×2 (10:28→22:23)
[2018-06-11] MEDS: CALCIUM CARBONATE 500 MG TABLET PO SCH ×2 (10:28→18:02)
[2018-06-11] MEDS: ASPIRIN 81 MG TABLET, CHEWABLE PO SCH (10:28)
[2018-06-11] MEDS: FUROSEMIDE INJ/PF 20 MG/2 ML SDV IV SCH (10:29)
--- NOTE | 2018-06-11 10:57 | XCELERA REPORT ---
[address] [address] Transthoracic Echocardiogram Report Name: EDIN MAX Age: 77 yrs Gender: Male : 1940 Patient Status: Inpatient Patient Location: [address] [place] [address] Study Date: 06/10/2018 05:53 PM Height: 74 in Weight: 200 lb BSA: 2.2 m2 Procedure: A two-dimensional transthoracic echocardiogram with color flow and Doppler was performed. Study Quality: Poor. The study was technically difficult with many images being suboptimal in quality. Images were not obtained from all of the standard acoustic windows due to the limited scope of the study. Reason For Study: CAD, CABG, ssess function History: CAD, CABG, CHF. Ordering Physician: DENNYS GARCÍA Performed By: Harris Shell Interpretation Summary Probably upper normal LV size.No LVH.No 'True Apical 2 chamber views' obtained.Hence cannot comment on the apical anterior,basal anterior,the apical inferior and basal inferior oglesby.The mid anterior ,the mid inferior , and rest of theLV oglesby show severe hypokinesis.LVEF in the limited views is severely reduced at 30%.No obvious clots seen. Septal motion is consistent with post-operative state The right ventricle is not well visualized secondary to technical limitations Right atrium not well visualized secondary to technical limitations The left atrial size is normal. There is no evidence of mitral valve prolapse. There is no mitral valve stenosis. There is no aortic valve stenosis No aortic regurgitation is present. There is no tricuspid stenosis. There is mild pulmonary hypertension by echo Probably mild to moderate TR.RVSP is 36 to 41 mm of Hg , with RA mean of 5 to 10. The pulmonic valve is not well visualized. There is no pericardial effusion. MMode/2D Measurements & Calculations RVDd: 3.8 cm LVIDd: 5.2 cm FS: 15.5 % Ao root diam: 4.4 cm IVSd: 0.74 cm LVIDs: 4.4 cm EDV(Teich): 127.1 ml Ao root area: 15.3 cm2 LVPWd: 1.0 cm ESV(Teich): 85.7 ml LA dimension: 3.4 cm EF(Teich): 32.6 % LVOT diam: 2.0 cm LVOT area: 3.2 cm2 Doppler Measurements & Calculations MV E max nael: MV P1/2t max nael: Ao V2 max: LV V1 max P.6 cm/sec 126.0 cm/sec 90.7 cm/sec 1.8 mmHg MV A max nael: MV P1/2t: 88.0 msec Ao max P.3 mmHgLV V1 max: 55.8 cm/sec MVA(P1/2t): 2.5 cm2 MANUEL(V,D): 2.4 cm2 66.6 cm/sec MV E/A: 2.0 MV dec slope: 419.6 cm/sec2 MV dec time: 0.15 sec PA V2 max: TR max nael: MV P1/2t-pr_phl: 86.3 cm/sec 279.6 cm/sec 88.0 msec PA max P.0 mmHg TR max P.3 mmHg Left Ventricle Probably upper normal LV size.No LVH.No 'True Apical 2 chamber views' obtained.Hence cannot comment on the apical anterior,basal anterior,the apical inferior and basal inferior oglesby.The mid anterior ,the mid inferior , and rest of theLV ogles[place] show severe hypokinesis.LVEF in the limited views is severely reduced at 30%.No obvious clots seen. Septal motion is consistent with post-operative state. Right Ventricle The right ventricle is not well visualized secondary to technical limitations. Atria Right atrium not well visualized secondary to technical limitations. The left atrial size is normal. Mitral Valve There is no evidence of mitral valve prolapse. There is no mitral valve stenosis. There is a trace amount of mitral regurgitation. Aortic Valve There is no aortic valve stenosis. No aortic regurgitation is present. Tricuspid Valve There is no tricuspid stenosis. There is mild pulmonary hypertension by echo. Probably mild to moderate TR.RVSP is 36 to 41 mm of Hg , with RA mean of 5 to 10. Pulmonic Valve The pulmonic valve is not well visualized. Great Vessels The aortic root is not well visualized. Effusions There is no pericardial effusion. : DENNYS GARCAÍ > Goldie Adams
--- NOTE | 2018-06-11 12:58 | PDOC PROGRESS REPORT ---
Subjective Progress Note for:: 06/11/18 Subjective:: Patient feels good today. Reason For Visit: SEPSIS, PNA, LEFT HIP FRACTURE Physical Exam Vital Signs: Temp Pulse Resp BP Pulse Ox 97.2 F 80 16 107/61 100 06/11/18 11:12 06/11/18 11:12 06/11/18 11:12 06/11/18 11:12 06/11/18 11:12 Intake & Output 06/10/18 06/11/18 06/12/18 05:59 06:59 06:59 Intake Total Output Total 900 Balance -900 Weight General appearance: PRESENT: no acute distress, well-developed - Very frail appearing 77-year-old male who looks older than his stated age. Head exam: PRESENT: other - Temporal wasting Eye exam: PRESENT: conjunctiva pale. ABSENT: scleral icterus Ear exam: PRESENT: normal external ear exam Mouth exam: PRESENT: moist, tongue midline Teeth exam: PRESENT: poor dentation Respiratory exam: PRESENT: rales - At bases, symmetrical, unlabored. ABSENT: rhonchi, wheezes Cardiovascular exam: PRESENT: RRR, +S1, +S2 GI/Abdominal exam: PRESENT: normal bowel sounds, soft. ABSENT: distended, tenderness Rectal exam: PRESENT: deferred Gentrourinary exam: PRESENT: indwelling catheter - Urine is leaking around the catheter. Extremities exam: PRESENT: +1 edema - Left thigh. ABSENT: pedal edema Musculoskeletal exam: PRESENT: other - Left hip fracture. ABSENT: ambulatory Neurological exam: PRESENT: alert, awake, oriented to person, oriented to place, oriented to situation Psychiatric exam: PRESENT: appropriate affect, normal mood. ABSENT: agitated, anxious Focused psych exam: ABSENT: delusional, restlessness Skin exam: PRESENT: other - The patient has a diffuse area of pressure in and around the coccyx. There is one dark area with likely deep tissue injury. There is erythema. There are open areas of skin (stage II) within an area of approximately 5 inches. Foam dressings are being used. Results Laboratory Results: 06/11/18 07:57 06/11/18 07:57 06/11/18 06/11/18 07:57 07:57 WBC 6.9 RBC 2.82 L Hgb 8.3 L Hct 24.3 L MCV 86 MCH 29.4 MCHC 34.2 RDW 18.0 H Plt Count 123 L Seg Neutrophils % 74.8 Lymphocytes % 11.7 L Monocytes % 8.7 Eosinophils % 4.3 Basophils % 0.5 Absolute Neutrophils 5.2 Absolute Lymphocytes 0.8 Absolute Monocytes 0.6 Absolute Eosinophils 0.3 Absolute Basophils 0.0 Sodium 131.0 L Potassium 4.4 Chloride 90 L Carbon Dioxide 40 H* Anion Gap 1 L BUN 18 Creatinine 0.81 Est GFR ( Amer) > 60 Est GFR (Non-Af Amer) > 60 Glucose 82 Calcium 7.4 L Phosphorus 2.8 Magnesium 2.3 Albumin 1.8 L 05/31/18 05/31/18 03:20 03:20 Creatine Kinase 134 CK-MB (CK-2) 1.23 Troponin I 0.038 Impressions: KUB X-Ray 05/30/18 00:00 IMPRESSION: No acute findings. Right femoral line. Cervical Spine CT 05/30/18 15:49 IMPRESSION: Mild degenerative disc disease and spondylosis. No acute finding. Head CT 05/30/18 15:49 IMPRESSION: Mild involutional changes of aging with no acute intracranial imaging finding. 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 EVIDENCE OF ACUTE STROKE: NO. Abdomen/Pelvis CT 05/30/18 22:44 IMPRESSION: Tiny nodular opacities particularly within the right lower lobe, likely due to an infectious/inflammatory process. Small left pleural effusion. Cholelithiasis. Mildly displaced and comminuted left intertrochanteric fracture. TECHNICAL DOCUMENTATION: Quality ID # 436: Final reports with documentation of one or more dose reduction techniques (e.g., Automated exposure control, adjustment of the mA and/or kV according to patient size, use of iterative reconstruction technique) copyright 2010 [employer]- All Rights Reserved Chest CT 05/30/18 22:44 IMPRESSION: Tiny nodular opacities particularly within the right lower lobe, likely due to an infectious/inflammatory process. Small left pleural effusion. Cholelithiasis. Mildly displaced and comminuted left intertrochanteric fracture. TECHNICAL DOCUMENTATION: Quality ID # 436: Final reports with documentation of one or more dose reduction techniques (e.g., Automated exposure control, adjustment of the mA and/or kV according to patient size, use of iterative reconstruction technique) copyright 2010 [employer]- All Rights Reserved Guidance Fluoroscopy 05/31/18 00:00 IMPRESSION: Lumbar puncture under fluoroscopy. No immediate complication. Lumbar Puncture 05/31/18 00:00 IMPRESSION: Lumbar puncture under fluoroscopy. No immediate complication. Chest/Abdomen CTA 06/04/18 00:00 IMPRESSION: Marked increase in the left pleural effusion. New right pleural effusion. No pulmonary emboli. Gallstones. Thoracentesis Ultrasound 06/05/18 00:00 IMPRESSION: SUCCESSFUL THORACENTESIS USING ULTRASOUND GUIDANCE. Chest X-Ray 06/10/18 07:00 IMPRESSION: Residual small effusions. No pneumothorax. Assessment & Plan - Diagnosis (1) Closed left hip fracture Qualifiers: Encounter type: initial encounter Qualified Code(s): S72.002A - Fracture of unspecified part of neck of left femur, initial encounter for closed fracture Is this a current diagnosis for this admission?: Yes Plan: Currently the patient is high risk for anesthesia and hip repair. Trying to tune up the patient as best as possible so that he can have his hip repaired. At rest he does not experience much pain but with movement such as rolling for cleaning or changing bed linen there is pain. (2) Pleural effusion, left Is this a current diagnosis for this admission?: Yes Plan: He did require thoracentesis. Will obtain a chest x-ray to see if any fluid has reaccumulated. Several risk factors include his anemia, hypoalbuminemia and aspiration pneumonia. (3) Atrial fibrillation Qualifiers: Atrial fibrillation type: chronic Qualified Code(s): I48.2 - Chronic atrial fibrillation Is this a current diagnosis for this admission?: Yes Plan: Currently good rate control on metoprolol 25 mg. He is on aspirin. Because of the hip fracture and anemia we are holding off on full anticoagulation. He is receiving subcutaneous heparin 5000 units every 8 hours. (4) Aspiration pneumonitis Is this a current diagnosis for this admission?: Yes Plan: Evidently the patient had a barium swallow study. We have reached out to [facility] to obtain a copy of the results. (5) Depressed left ventricular ejection fraction Is this a current diagnosis for this admission?: Yes Plan: Echocardiogram reveals ejection fraction of approximately 30%. (6) Dysphagia Qualifiers: Dysphagia type: unspecified Qualified Code(s): R13.10 - Dysphagia, unspecified Is this a current diagnosis for this admission?: Yes Plan: Awaiting swallow studies from [place] (7) Hypoalbuminemia due to protein-calorie malnutrition Is this a current diagnosis for this admission?: Yes Plan: Albumin is down to 1.8 with a prealbumin of 8. I have ordered protein supplements. (8) Anemia Qualifiers: Anemia type: unspecified type Qualified Code(s): D64.9 - Anemia, unspecified Is this a current diagnosis for this admission?: Yes Plan: Hemoglobin is drifting down again. The patient did require packed red cells early on his admission. I have ordered iron studies and occult blood testing of his stool. (9) Pressure ulcer of coccygeal region, stage 2 Is this a current diagnosis for this admission?: Yes Plan: Attempt repositioning. With his hip fracture this will be difficult. Currently utilizing foam dressings. Figueroa catheter was leaking but we are replacing with a larger size to avoid urine further aggravating skin breakdown. (10) Encephalopathy acute Is this a current diagnosis for this admission?: Yes Plan: Resolved. Infection was the most likely etiology. (11) Sepsis Qualifiers: Sepsis type: sepsis due to unspecified organism Qualified Code(s): A41.9 - Sepsis, unspecified organism Is this a current diagnosis for this admission?: Yes Plan: From aspiration pneumonia. Resolved. - Time Time Spent with patient: 35 or more minutes Medications reviewed and adjusted accordingly: Yes
--- NOTE | 2018-06-11 13:04 | PDOC PROGRESS REPORT ---
Subjective Progress Note for:: 06/10/18 Subjective:: The patient looks somewhat brighter today. A family conference was scheduled now that I have had a chance to review his health history since April 02, 2018. Reason For Visit: SEPSIS, PNA, LEFT HIP FRACTURE Physical Exam Vital Signs: Temp Pulse Resp BP Pulse Ox 97.3 F 101 H 17 103/56 L 96 06/10/18 15:29 06/10/18 19:43 06/10/18 19:43 06/10/18 15:29 06/10/18 19:43 Intake & Output 06/09/18 06/10/18 06/11/18 06:59 06:59 07:59 Intake Total 1074 700 Output Total 1375 1750 975 Balance -301 -1050 -975 Weight 91.7 kg 90.8 kg General appearance: PRESENT: no acute distress, cooperative, thin - And frail 77 -year-old patient resting comfortably in bed Head exam: PRESENT: other - Temporal wasting Eye exam: PRESENT: conjunctiva pale. ABSENT: scleral icterus Ear exam: PRESENT: normal external ear exam Mouth exam: PRESENT: moist, tongue midline Teeth exam: PRESENT: poor dentation Respiratory exam: PRESENT: rales - At bases, symmetrical. ABSENT: accessory muscle use, rhonchi, tachypnea, wheezes Cardiovascular exam: PRESENT: irregular rhythm GI/Abdominal exam: PRESENT: normal bowel sounds, soft. ABSENT: distended, tenderness Rectal exam: PRESENT: deferred Gentrourinary exam: PRESENT: indwelling catheter Extremities exam: PRESENT: other - Left leg shorter than the right with some external rotation. Left thigh with edema and ecchymosis. ABSENT: pedal edema Neurological exam: PRESENT: alert, awake, oriented to person, oriented to place, oriented to time, oriented to situation Psychiatric exam: PRESENT: appropriate affect. ABSENT: agitated, anxious Focused psych exam: ABSENT: delusional, restlessness Results Laboratory Results: 06/10/18 08:00 06/10/18 08:00 06/10/18 06/10/18 08:00 08:00 WBC 6.3 RBC 2.98 L Hgb 8.8 L Hct 25.7 L MCV 86 MCH 29.4 MCHC 34.1 RDW 17.5 H Plt Count 124 L Seg Neutrophils % 69.7 Lymphocytes % 10.7 L Monocytes % 9.0 Eosinophils % 9.7 H Basophils % 0.9 Absolute Neutrophils 4.4 Absolute Lymphocytes 0.7 Absolute Monocytes 0.6 Absolute Eosinophils 0.6 Absolute Basophils 0.1 Sodium 130.4 L Potassium 4.2 Chloride 92 L Carbon Dioxide 39 H Anion Gap -1 L BUN 18 Creatinine 0.69 Est GFR ( Amer) > 60 Est GFR (Non-Af Amer) > 60 Glucose 81 Calcium 7.5 L Total Bilirubin 1.2 AST 29 ALT 27 Alkaline Phosphatase 80 Total Protein 4.4 L Albumin 2.0 L Prealbumin 8.8 L 05/31/18 05/31/18 03:20 03:20 Creatine Kinase 134 CK-MB (CK-2) 1.23 Troponin I 0.038 Impressions: KUB X-Ray 05/30/18 00:00 IMPRESSION: No acute findings. Right femoral line. Cervical Spine CT 05/30/18 15:49 IMPRESSION: Mild degenerative disc disease and spondylosis. No acute finding. Head CT 05/30/18 15:49 IMPRESSION: Mild involutional changes of aging with no acute intracranial imaging finding. 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 EVIDENCE OF ACUTE STROKE: NO. Abdomen/Pelvis CT 05/30/18 22:44 IMPRESSION: Tiny nodular opacities particularly within the right lower lobe, likely due to an infectious/inflammatory process. Small left pleural effusion. Cholelithiasis. Mildly displaced and comminuted left intertrochanteric fracture. TECHNICAL DOCUMENTATION: Quality ID # 436: Final reports with documentation of one or more dose reduction techniques (e.g., Automated exposure control, adjustment of the mA and/or kV according to patient size, use of iterative reconstruction technique) copyright 2010 [employer]- All Rights Reserved Chest CT 05/30/18 22:44 IMPRESSION: Tiny nodular opacities particularly within the right lower lobe, likely due to an infectious/inflammatory process. Small left pleural effusion. Cholelithiasis. Mildly displaced and comminuted left intertrochanteric fracture. TECHNICAL DOCUMENTATION: Quality ID # 436: Final reports with documentation of one or more dose reduction techniques (e.g., Automated exposure control, adjustment of the mA and/or kV according to patient size, use of iterative reconstruction technique) copyright 2010 [employer]- All Rights Reserved Guidance Fluoroscopy 05/31/18 00:00 IMPRESSION: Lumbar puncture under fluoroscopy. No immediate complication. Lumbar Puncture 05/31/18 00:00 IMPRESSION: Lumbar puncture under fluoroscopy. No immediate complication. Chest/Abdomen CTA 06/04/18 00:00 IMPRESSION: Marked increase in the left pleural effusion. New right pleural effusion. No pulmonary emboli. Gallstones. Thoracentesis Ultrasound 06/05/18 00:00 IMPRESSION: SUCCESSFUL THORACENTESIS USING ULTRASOUND GUIDANCE. Chest X-Ray 06/10/18 07:00 IMPRESSION: Residual small effusions. No pneumothorax. Assessment & Plan - Diagnosis (1) Closed left hip fracture Qualifiers: Encounter type: initial encounter Qualified Code(s): S72.002A - Fracture of unspecified part of neck of left femur, initial encounter for closed fracture Is this a current diagnosis for this admission?: Yes Plan: High risk for surgery. We are trying to improve his baseline condition so that he is an acceptable operative candidate. (2) Encephalopathy acute Is this a current diagnosis for this admission?: Yes Plan: Resolved (3) Pleural effusion, left Is this a current diagnosis for this admission?: Yes Plan: Repeat chest x-ray (4) Atrial fibrillation Qualifiers: Atrial fibrillation type: chronic Qualified Code(s): I48.2 - Chronic atrial fibrillation Is this a current diagnosis for this admission?: Yes Plan: Good rate control. Continue current medications. Holding on full anticoagulation at this time (5) Sepsis Qualifiers: Sepsis type: sepsis due to unspecified organism Qualified Code(s): A41.9 - Sepsis, unspecified organism Is this a current diagnosis for this admission?: Yes Plan: Resolved (6) Aspiration pneumonitis Is this a current diagnosis for this admission?: Yes Plan: Family reports that the patient has a "leak" when he swallows because the throat "does not close all the way ". I explained that with consistent aspiration he will get consistent episodes of pneumonia. (7) Dysphagia Qualifiers: Dysphagia type: unspecified Qualified Code(s): R13.10 - Dysphagia, unspecified Is this a current diagnosis for this admission?: Yes Plan: Awaiting swallow study from outside facility (8) Hypoalbuminemia due to protein-calorie malnutrition Is this a current diagnosis for this admission?: Yes Plan: Encourage protein supplements. - Time Time Spent with patient: 35 or more minutes Medications reviewed and adjusted accordingly: Yes - Plan Summary Plan Summary: There is able to review echo notes from this facility since April 02. The patient has been in a facility or assisted facility from April I believe. I reviewed all of the risk factors for anesthesia and surgery. We will trying to improve the patient's baseline condition as much as possible (echocardiogram ordered, monitor labs etc.) and have anesthesia reassess or possibly referred to an outside facility. 40 minutes was spent in the discussion with the patient, daughter and son-in-law as well as the patient's .
[2018-06-11] MEDS: ROPINIROLE HCL 0.25 MG TABLET PO SCH (22:23)
[2018-06-11] MEDS: ATORVASTATIN CALCIUM 40 MG TABLET PO SCH (22:23)
[2018-06-11] MEDS: TRAZODONE HCL 50 MG TABLET PO SCH (22:23)
[2018-06-12] MEDS: HALOPERIDOL LACTATE INJ 5 MG/1 ML VIAL IV PRN (00:53)
[2018-06-12] MEDS: IPRATROPIUM/ALBUTEROL 0.5-2.5 MG/3 ML AMPUL NEB SCH ×4 (02:13→19:49)
[2018-06-12 05:00] LABS: ABSOLUTE RETICS # 0.073 10^6/uL (0.028-0.122); HEMATOCRIT 25.5 % (37.9-51.0); HEMOGLOBIN 8.6 g/dL (13.5-17.0); MEAN CORPUSCULAR HEMOGLOBIN 29.3 pg (27.0-33.4); MEAN CORPUSCULAR HGB CONC 33.9 g/dL (32.0-36.0); MEAN CORPUSCULAR VOLUME 87 fl (80-97); PLATELET COUNT 121 10^3/uL (150-450); RED BLOOD COUNT 2.94 10^6/uL (4.35-5.55); RED CELL DISTRIBUTION WIDTH 17.8 % (11.5-14.0); RETICULOCYTE COUNT (AUTO) 2.48 % (0.66-2.85)
[2018-06-12 05:58] LABS: BLOOD UREA NITROGEN 21 mg/dL (7-20); CALCIUM 7.6 mg/dL (8.4-10.2); GLUCOSE 80 mg/dL (75-110); IRON(TIBC) 23.7 ug/dL (49-181); POTASSIUM 4.1 mmol/L (3.6-5.0)
[2018-06-12 06:04] LABS: CARBON DIOXIDE 38 mmol/L (22-30); CHLORIDE 91 mmol/L (98-107); SODIUM 130.5 mmol/L (137-145)
[2018-06-12] MEDS: CARBIDOPA/LEVODOPA 25-250 MG TABLET PO SCH ×3 (06:23→21:49)
[2018-06-12] MEDS: LANSOPRAZOLE 30 MG TAB.RAP.DR PO SCH ×2 (06:23→17:11)
[2018-06-12] MEDS: HEPARIN SOD (PORCINE) 5,000 UNIT/ML 1 ML SYRINGE SUBCUT SCH ×3 (06:24→21:49)
[2018-06-12 07:03] LABS: FOLATE 3.98 ng/mL (>2.76)
[2018-06-12 07:05] LABS: ANION GAP 2 (5-19)
[2018-06-12] MEDS: CALCIUM CARBONATE 500 MG TABLET PO SCH ×2 (10:33→17:11)
[2018-06-12] MEDS: VENLAFAXINE HCL 25 MG TABLET PO SCH ×2 (10:33→21:49)
[2018-06-12] MEDS: VENLAFAXINE HCL 75 MG TABLET PO SCH ×2 (10:33→21:49)
[2018-06-12] MEDS: ASPIRIN 81 MG TABLET, CHEWABLE PO SCH (10:33)
[2018-06-12] MEDS: METOPROLOL SUCCINATE 25 MG TAB.SR.24H PO SCH ×2 (10:33→21:48)
[2018-06-12] MEDS: FUROSEMIDE 20 MG TABLET PO SCH (10:33)
[2018-06-12] MEDS: KETOROLAC TROMETHAMINE INJ/PF 30 MG/1 ML SDV IV PRN (16:55)
[2018-06-12] MEDS ORDERED: IRON SUCROSE COMPLEX 100 MG in NORMAL SALINE 100 ML IV ONE (21:25)
[2018-06-12] MEDS: ATORVASTATIN CALCIUM 40 MG TABLET PO SCH (21:49)
[2018-06-12] MEDS: TRAZODONE HCL 50 MG TABLET PO SCH (21:49)
[2018-06-12] MEDS: ROPINIROLE HCL 0.25 MG TABLET PO SCH (21:49)
--- NOTE | 2018-06-12 21:55 | PDOC PROGRESS REPORT ---
Subjective Progress Note for:: 06/12/18 Subjective:: Patient is resting in bed. Complains of pain in his left hip. Reason For Visit: SEPSIS, PNA, LEFT HIP FRACTURE Physical Exam Vital Signs: Temp Pulse Resp BP Pulse Ox 97.8 F 86 16 114/53 L 95 06/12/18 19:42 06/12/18 19:49 06/12/18 19:49 06/12/18 19:42 06/12/18 19:49 Intake & Output 06/11/18 06/12/18 06/13/18 06:59 06:59 06:59 Intake Total 1182 Output Total 2450 600 Balance -2450 582 Weight 88.4 kg General appearance: PRESENT: cooperative, mild distress, well-developed - But frail-appearing 77-year-old patient Head exam: PRESENT: normocephalic Eye exam: PRESENT: conjunctiva pale Ear exam: PRESENT: normal external ear exam Mouth exam: PRESENT: moist Teeth exam: PRESENT: poor dentation Neck exam: ABSENT: carotid bruit, lymphadenopathy, tenderness Respiratory exam: PRESENT: rales - At bases, symmetrical. ABSENT: accessory muscle use, rhonchi, wheezes Cardiovascular exam: PRESENT: RRR, +S1, +S2 GI/Abdominal exam: PRESENT: normal bowel sounds, soft. ABSENT: distended, tenderness Rectal exam: PRESENT: deferred, heme (+) stool Gentrourinary exam: PRESENT: indwelling catheter Extremities exam: PRESENT: joint swelling - Left hip and thigh area, other - Left leg external rotation. Foam wedge between his legs. Musculoskeletal exam: ABSENT: ambulatory Neurological exam: PRESENT: alert, awake, oriented to person, oriented to place, oriented to situation Psychiatric exam: PRESENT: flat affect. ABSENT: agitated, anxious Focused psych exam: ABSENT: delusional, restlessness Results Laboratory Results: 06/12/18 03:53 06/12/18 03:53 06/12/18 06/12/18 06/12/18 02:00 03:53 03:53 WBC 9.0 RBC 2.94 L Hgb 8.6 L Hct 25.5 L MCV 87 MCH 29.3 MCHC 33.9 RDW 17.8 H Plt Count 121 L Retic Count (auto) 2.48 Absolute Retic 0.073 Sodium 130.5 L Potassium 4.1 Chloride 91 L Carbon Dioxide 38 H Anion Gap 2 L BUN 21 H Creatinine 0.74 Est GFR ( Amer) > 60 Est GFR (Non-Af Amer) > 60 Glucose 80 Calcium 7.6 L Magnesium 2.2 Iron 23.7 L TIBC 177 L % Saturation 13 Ferritin 306.00 Vitamin B12 728.0 Folate 3.98 Stool Occult Blood POSITIVE 05/31/18 05/31/18 03:20 03:20 Creatine Kinase 134 CK-MB (CK-2) 1.23 Troponin I 0.038 Impressions: KUB X-Ray 05/30/18 00:00 IMPRESSION: No acute findings. Right femoral line. Cervical Spine CT 05/30/18 15:49 IMPRESSION: Mild degenerative disc disease and spondylosis. No acute finding. Head CT 05/30/18 15:49 IMPRESSION: Mild involutional changes of aging with no acute intracranial imaging finding. 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 EVIDENCE OF ACUTE STROKE: NO. Abdomen/Pelvis CT 05/30/18 22:44 IMPRESSION: Tiny nodular opacities particularly within the right lower lobe, likely due to an infectious/inflammatory process. Small left pleural effusion. Cholelithiasis. Mildly displaced and comminuted left intertrochanteric fracture. TECHNICAL DOCUMENTATION: Quality ID # 436: Final reports with documentation of one or more dose reduction techniques (e.g., Automated exposure control, adjustment of the mA and/or kV according to patient size, use of iterative reconstruction technique) copyright 2010 [employer]- All Rights Reserved Chest CT 05/30/18 22:44 IMPRESSION: Tiny nodular opacities particularly within the right lower lobe, likely due to an infectious/inflammatory process. Small left pleural effusion. Cholelithiasis. Mildly displaced and comminuted left intertrochanteric fracture. TECHNICAL DOCUMENTATION: Quality ID # [id number]: Final reports with documentation of one or more dose reduction techniques (e.g., Automated exposure control, adjustment of the mA and/or kV according to patient size, use of iterative reconstruction technique) copyright 2010 [employer]- All Rights Reserved Guidance Fluoroscopy 05/31/18 00:00 IMPRESSION: Lumbar puncture under fluoroscopy. No immediate complication. Lumbar Puncture 05/31/18 00:00 IMPRESSION: Lumbar puncture under fluoroscopy. No immediate complication. Chest/Abdomen CTA 06/04/18 00:00 IMPRESSION: Marked increase in the left pleural effusion. New right pleural effusion. No pulmonary emboli. Gallstones. Thoracentesis Ultrasound 06/05/18 00:00 IMPRESSION: SUCCESSFUL THORACENTESIS USING ULTRASOUND GUIDANCE. Chest X-Ray 06/10/18 07:00 IMPRESSION: Residual small effusions. No pneumothorax. Assessment & Plan - Diagnosis (1) Closed left hip fracture Qualifiers: Encounter type: initial encounter Qualified Code(s): S72.002A - Fracture of unspecified part of neck of left femur, initial encounter for closed fracture Is this a current diagnosis for this admission?: Yes Plan: The patient sustained a left intertrochanteric fracture after a fall at the senior living facility. This is not been surgically repaired as yet due to comorbidity complications. Anesthesia declined the case at this facility because of his heightened risk factors. See description below. We are investigating transfer to a facility will consider surgical repair. (2) Iron deficiency anemia due to chronic blood loss Is this a current diagnosis for this admission?: Yes Plan: The patient was anemic at the time of admission. He was transfused. He does have history of colon cancer. Posttransfusion his hemoglobin has stayed above 8.0. Serum iron level was 23. Ferritin was 306. Total iron binding capacity was 177 with saturation percent of 13. We will give the patient several doses of intravenous iron therapy. He does have Hemoccult positive stool. Cont raindication to surgery or possibly worked up after surgical repair of his hip. (3) Atrial fibrillation Qualifiers: Atrial fibrillation type: chronic Qualified Code(s): I48.2 - Chronic atrial fibrillation Is this a current diagnosis for this admission?: Yes Plan: During his acute illness the patient exhibited atrial fibrillation with rapid ventricular rate. With adjustment of medications we have achieved good rate control using metoprolol 12.5 mg twice daily. No anticoagulation at this time due to guaiac positive stool. (4) Pleural effusion, left Is this a current diagnosis for this admission?: Yes Plan: Likely multifactorial including his pneumonia, hypoalbuminemia, anemia as well as depressed ejection fraction. 750 mL of fluid was removed from the left lung. Small bilateral pleural effusions remain. (5) Encephalopathy acute Is this a current diagnosis for this admission?: Yes Plan: Secondary to pneumonia and sepsis. Encephalopathy resolved. (6) Sepsis Qualifiers: Sepsis type: sepsis due to unspecified organism Qualified Code(s): A41.9 - Sepsis, unspecified organism Is this a current diagnosis for this admission?: Yes Plan: Secondary to aspiration pneumonia. Sepsis resolved. (7) Dysphagia Qualifiers: Dysphagia type: unspecified Qualified Code(s): R13.10 - Dysphagia, unspecified Is this a current diagnosis for this admission?: Yes Plan: The patient was admitted with aspiration pneumonia. It is unclear as to how long he actually has been struggling with aspiration and the pneumonia. This is his third hospitalization in 3 months. The patient did have a fees study performed at an outside facility. He has been tolerating his diet here. He is certainly much improved at this time than at the time of admission. Feel that has a lot to do with his improved swallow. He is still at risk for aspiration. (8) Aspiration pneumonitis Is this a current diagnosis for this admission?: Yes Plan: The patient completed a full course of antibiotic therapy. He required as much as 5 L/min nasal cannula but has weaned down to 3 L/min. Continue to supplement oxygen to maintain oxygen saturation at or above 90%. (9) Hypoalbuminemia due to protein-calorie malnutrition Is this a current diagnosis for this admission?: Yes Plan: Very poor serum albumin. This likely is a combination of the patient's cumulative illnesses over the last 3 months. This makes him a high risk candidate for healing. (10) Systolic congestive heart failure Qualifiers: Heart failure chronicity: unspecified Qualified Code(s): I50.20 - Unspecified systolic (congestive) heart failure Is this a current diagnosis for this admission?: Yes Plan: The patient has a history of myocardial infarction. I do not have the results of any previous echocardiograms. An echocardiogram was performed at this facility. The estimated ejection fraction is 30%. This is most likely due to his coronary artery disease. The depressed ejection fraction does make him higher risk for general anesthesia. He is on furosemide and metoprolol. He is also on aspirin therapy. He may benefit from a low-dose ROSSY inhibitor. He cert ainly has been stable. He continues to have a net negative fluid balance even with such a small dose of diuretic. (11) Tremor Is this a current diagnosis for this admission?: Yes Plan: The patient is on Sinemet and Requip. I did not observe a resting tremor. The family states that everyone incorrectly assumes that he has Parkinson's disease. He seems to be well controlled on this current dose as he is not tremulous at all. Unfortunately I have no idea about his gait because he is unable to walk with the hip fracture. (12) Depression Qualifiers: Depression Type: unspecified Qualified Code(s): F32.9 - Major depressive disorder, single episode, unspecified Is this a current diagnosis for this admission?: Yes Plan: The patient has remained on his venlafaxine 100 mg twice daily during this ho spitalization. - Time Time Spent with patient: 35 or more minutes Medications reviewed and adjusted accordingly: Yes Anticipated discharge: [facility]
[2018-06-12] MEDS ORDERED: IRON SUCROSE COMPLEX INJ/PF 100 MG/5 ML SDV IV ONE (22:30)
[2018-06-13] MEDS: IPRATROPIUM/ALBUTEROL 0.5-2.5 MG/3 ML AMPUL NEB PRN ×2 (04:15→09:20)
[2018-06-13] MEDS: LANSOPRAZOLE 30 MG TAB.RAP.DR PO SCH ×2 (05:54→16:36)
[2018-06-13] MEDS: HEPARIN SOD (PORCINE) 5,000 UNIT/ML 1 ML SYRINGE SUBCUT SCH ×3 (05:54→22:04)
[2018-06-13] MEDS: CARBIDOPA/LEVODOPA 25-250 MG TABLET PO SCH ×3 (05:54→22:04)
[2018-06-13 07:12] LABS: ALBUMIN 2.1 g/dL (3.5-5.0); BLOOD UREA NITROGEN 24 mg/dL (7-20); CALCIUM 7.9 mg/dL (8.4-10.2); GLUCOSE 71 mg/dL (75-110); POTASSIUM 4.1 mmol/L (3.6-5.0)
[2018-06-13 07:19] LABS: CARBON DIOXIDE 37 mmol/L (22-30); CHLORIDE 91 mmol/L (98-107); SODIUM 131.1 mmol/L (137-145)
[2018-06-13 07:26] LABS: ANION GAP 3 (5-19)
[2018-06-13] MEDS: KETOROLAC TROMETHAMINE INJ/PF 30 MG/1 ML SDV IV PRN ×2 (08:56→16:36)
[2018-06-13 09:40] LABS: HEMATOCRIT 24.2 % (37.9-51.0); HEMOGLOBIN 8.3 g/dL (13.5-17.0); MEAN CORPUSCULAR HEMOGLOBIN 29.5 pg (27.0-33.4); MEAN CORPUSCULAR HGB CONC 34.1 g/dL (32.0-36.0); MEAN CORPUSCULAR VOLUME 86 fl (80-97); PLATELET COUNT 124 10^3/uL (150-450); RED BLOOD COUNT 2.81 10^6/uL (4.35-5.55); RED CELL DISTRIBUTION WIDTH 17.8 % (11.5-14.0); WHITE BLOOD COUNT 10.5 10^3/uL (4.0-10.5)
[2018-06-13] MEDS: FUROSEMIDE 20 MG TABLET PO SCH (10:23)
[2018-06-13] MEDS: METOPROLOL SUCCINATE 25 MG TAB.SR.24H PO SCH ×2 (10:23→22:03)
[2018-06-13] MEDS: VENLAFAXINE HCL 75 MG TABLET PO SCH ×2 (10:23→22:02)
[2018-06-13] MEDS: ASPIRIN 81 MG TABLET, CHEWABLE PO SCH (10:23)
[2018-06-13] MEDS: LISINOPRIL 5 MG TABLET PO SCH (10:23)
[2018-06-13] MEDS: CALCIUM CARBONATE 500 MG TABLET PO SCH ×2 (10:23→17:34)
[2018-06-13] MEDS: VENLAFAXINE HCL 25 MG TABLET PO SCH ×2 (10:23→22:04)
[2018-06-13] MEDS: FLUTICASONE/VILANTEROL 100-25 MCG/DOSE IH SCH (10:24)
[2018-06-13] MEDS: TIOTROPIUM BROMIDE DPI 5 CAP/KIT (18 MCG/CAP) IH SCH (10:24)
[2018-06-13] MEDS: HALOPERIDOL LACTATE INJ 5 MG/1 ML VIAL IV PRN ×3 (10:25→19:54)
--- NOTE | 2018-06-13 16:38 | PDOC PROGRESS REPORT ---
Subjective Progress Note for:: 06/13/18 Subjective:: The patient is resting in his bed. He is awake alert and oriented x1. He is somewhat agitated this afternoon. Review of systems could not be obtained. I did speak at length to the patient's family at the bedside. They are still wanting transfer to a tertiary center for his hip repair. We did discuss that the patient is reaching the end of his life and that no matter what we do he likely is not going to do well. This is his third admission since the first of the year where he has been treated for aspiration pneumonia. He is acutely confused with underlying dementia and in spite of fixing his hip this likely is not going to get much better. The patient's family wants the hip repaired and they want to attempt to rehab him. Their wishes will be honored and I am currently contacting [facility] as well as [facility] for potential transfer. Reason For Visit: SEPSIS, PNA, LEFT HIP FRACTURE Physical Exam Vital Signs: Temp Pulse Resp BP Pulse Ox 98.2 F 96 16 109/53 L 96 06/13/18 11:49 06/13/18 14:00 06/13/18 11:49 06/13/18 11:49 06/13/18 11:49 Intake & Output 06/12/18 06/13/18 06/14/18 06:59 06:59 06:59 Intake Total 1182 Output Total 2450 800 Balance -2450 382 Weight 88.4 kg 84.4 kg General appearance: PRESENT: disheveled, thin, other - Somewhat agitated. He has mild bitemporal muscle wasting. Head exam: PRESENT: other - Mild bitemporal muscle wasting Eye exam: PRESENT: conjunctiva pink, EOMI, PERRLA. ABSENT: scleral icterus Mouth exam: PRESENT: moist, tongue midline Respiratory exam: PRESENT: clear to auscultation vickie. ABSENT: rales, rhonchi, wheezes Cardiovascular exam: PRESENT: irregular rhythm. ABSENT: tachycardia Pulses: PRESENT: normal dorsalis pedis pul Vascular exam: PRESENT: normal capillary refill GI/Abdominal exam: PRESENT: normal bowel sounds, soft. ABSENT: distended, guarding, mass, organolmegaly, rebound, tenderness Rectal exam: PRESENT: deferred Extremities exam: PRESENT: full ROM. ABSENT: calf tenderness, clubbing, pedal edema Musculoskeletal exam: ABSENT: ambulatory Neurological exam: PRESENT: alert, awake, oriented to person, other. ABSENT: oriented to place, oriented to time, oriented to situation, motor sensory deficit Psychiatric exam: PRESENT: agitated Skin exam: PRESENT: dry, intact, warm. ABSENT: cyanosis, rash Results Laboratory Results: 06/13/18 08:51 06/13/18 06:29 06/13/18 06/13/18 06:29 08:51 WBC 10.5 RBC 2.81 L Hgb 8.3 L Hct 24.2 L MCV 86 MCH 29.5 MCHC 34.1 RDW 17.8 H Plt Count 124 L Sodium 131.1 L Potassium 4.1 Chloride 91 L Carbon Dioxide 37 H Anion Gap 3 L BUN 24 H Creatinine 0.82 Est GFR ( Amer) > 60 Est GFR (Non-Af Amer) > 60 Glucose 71 L Calcium 7.9 L Magnesium 2.3 Albumin 2.1 L 05/31/18 05/31/18 03:20 03:20 Creatine Kinase 134 CK-MB (CK-2) 1.23 Troponin I 0.038 Impressions: KUB X-Ray 05/30/18 00:00 IMPRESSION: No acute findings. Right femoral line. Cervical Spine CT 05/30/18 15:49 IMPRESSION: Mild degenerative disc disease and spondylosis. No acute finding. Head CT 05/30/18 15:49 IMPRESSION: Mild involutional changes of aging with no acute intracranial imag ing finding. 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 EVIDENCE OF ACUTE STROKE: NO. Abdomen/Pelvis CT 05/30/18 22:44 IMPRESSION: Tiny nodular opacities particularly within the right lower lobe, likely due to an infectious/inflammatory process. Small left pleural effusion. Cholelithiasis. Mildly displaced and comminuted left intertrochanteric fracture. TECHNICAL DOCUMENTATION: Quality ID # 436: Final reports with documentation of one or more dose reduction techniques (e.g., Automated exposure control, adjustment of the mA and/or kV according to patient size, use of iterative reconstruction technique) copyright 2011 [employer]- All Rights Reserved Chest CT 05/30/18 22:44 IMPRESSION: Tiny nodular opacities particularly within the right lower lobe, likely due to an infectious/inflammatory process. Small left pleural effusion. Cholelithiasis. Mildly displaced and comminuted left intertrochanteric fracture. TECHNICAL DOCUMENTATION: Quality ID # 436: Final reports with documentation of one or more dose reduction techniques (e.g., Automated exposure control, adjustment of the mA and/or kV according to patient size, use of iterative reconstruction technique) copyright 2011 [employer]- All Rights Reserved Guidance Fluoroscopy 05/31/18 00:00 IMPRESSION: Lumbar puncture under fluoroscopy. No immediate complication. Lumbar Puncture 05/31/18 00:00 IMPRESSION: Lumbar puncture under fluoroscopy. No immediate complication. Chest/Abdomen CTA 06/04/18 00:00 IMPRESSION: Marked increase in the left pleural effusion. New right pleural effusion. No pulmonary emboli. Gallstones. Thoracentesis Ultrasound 06/05/18 00:00 IMPRESSION: SUCCESSFUL THORACENTESIS USING ULTRASOUND GUIDANCE. Chest X-Ray 06/10/18 07:00 IMPRESSION: Residual small effusions. No pneumothorax. Assessment & Plan - Diagnosis (1) Aspiration pneumonia Is this a current diagnosis for this admission?: Yes Plan: He is completed a course of antibiotic therapy. He is at high risk of recurrent aspiration. (2) Sepsis Is this a current diagnosis for this admission?: Yes Plan: Manifested by markedly leukocytosis, hypotension, lactic acidosis, encephalopathy and evidence of infection. His sepsis symptoms have resolved with treatment. (3) Acute respiratory failure Is this a current diagnosis for this admission?: Yes Plan: Secondary to aspiration pneumonia. He is still requiring oxygen. At high risk of recurrent aspiration events. (4) Acute encephalopathy Is this a current diagnosis for this admission?: Yes Plan: He is still acutely encephalopathic but somewhat improved since the time of admission. This may be his new baseline. He is quite agitated. I am going to start the patient on some scheduled Haldol twice daily (5) Closed left hip fracture Qualifiers: Encounter type: initial encounter Qualified Code(s): S72.002A - Fracture of unspecified part of neck of left femur, initial encounter for closed fracture Is this a current diagnosis for this admission?: Yes Plan: The family definitely wants this repaired. I am going to pursue transfer to a tertiary center for their evaluation. His sepsis symptoms have resolved and I believe he would be stable for surgery at this point. Our anesthesiology would like the procedure performed at a tertiary center due to his cardiac history. (6) Tremor Is this a current diagnosis for this admission?: Yes Plan: It is documented that the patient has Parkinson's disease and he does take carbidopa. However the family adamantly denies that he has Parkinson's disease. They also state however that he has never been worked up by a neurologist. (7) Pleural effusion, left Is this a current diagnosis for this admission?: Yes Plan: Status post thoracentesis. This will likely recur as he does have underlying heart failure. (8) Dysphagia Qualifiers: Dysphagia type: unspecified Qualified Code(s): R13.10 - Dysphagia, unspecified Is this a current diagnosis for this admission?: Yes Plan: Currently on a regular diet. I believe he has issues that come and go. Would not be surprised if he does not have aspiration when he is acutely confused (9) Chronic systolic CHF (congestive heart failure) Is this a current diagnosis for this admission?: Yes Plan: At this point he appears to be fairly euvolemic. He has an EF of 30% per echocardiogram performed during this hospitalization (10) Chronic atrial fibrillation Is this a current diagnosis for this admission?: Yes Plan: Stable (11) Iron deficiency anemia Is this a current diagnosis for this admission?: Yes Plan: His hemoglobin is stable (12) Depression Is this a current diagnosis for this admission?: Yes Plan: Continue Effexor (13) CAD (coronary artery disease) Is this a current diagnosis for this admission?: Yes Plan: He has had multiple heart attacks in the past with interventions and stents. He does have a psychologist educational in [place]. (14) Stage 3 skin ulcer of sacral region Is this a current diagnosis for this admission?: Yes Plan: According to the nursing staff he now has a stage III sacral decubitus ulcer. I did not examine this today due to the pain he has from his hip fracture. We will get surgery to evaluate and see whether this needs debriding if he is not accepted in transfer. (15) Thrombocytopenia Is this a current diagnosis for this admission?: Yes Plan: Secondary to sepsis and acute illness. Stable. (16) Hyponatremia Is this a current diagnosis for this admission?: Yes Plan: Likely due to his acute illness. Stable. (17) Hyperkalemia Is this a current diagnosis for this admission?: Yes Plan: Resolved (18) Hypophosphatemia Is this a current diagnosis for this admission?: Yes Plan: Repleted. He will have a level drawn tomorrow (19) Hypoalbuminemia Is this a current diagnosis for this admission?: Yes Plan: I reviewed the dietitian notes. Continue supplements and good p.o. intake. He does not quite meet the criteria for severe protein calorie malnutrition although he certainly looks quite malnourished. (20) Full code status Is this a current diagnosis for this admission?: Yes - Time Time Spent with patient: 35 or more minutes - Inpatient Certification Medical Necessity: Other - Inpatient hospitalization remains necessary. This patient has multiple comorbidities. My recommendation was a transition to palliative care and to get hospice involved. The patient's family are not ready for this. They believe that if we fix his hip and he could receive some rehab that he may get better. I am going to try to transfer him to a tertiary center for acute intervention. The family is aware that the surgeons may not accept him. We will discuss that further tomorrow. If they do not accept him in transfer I will need to get general surgery to evaluate his stage III sacral decubitus ulcer for possible debridement.
[2018-06-13] MEDS ORDERED: HALOPERIDOL 2 MG TABLET PO SCH (17:00)
[2018-06-13] MEDS: HALOPERIDOL 5 MG TABLET PO SCH (17:34)
[2018-06-13] MEDS: TRAZODONE HCL 50 MG TABLET PO SCH (22:03)
[2018-06-13] MEDS: ATORVASTATIN CALCIUM 40 MG TABLET PO SCH (22:03)
[2018-06-13] MEDS: ROPINIROLE HCL 0.25 MG TABLET PO SCH (22:03)
[2018-06-14 05:09] LABS: ABSOLUTE BASOPHILS # (AUTO) 0.1 10^3/uL (0.0-0.2); ABSOLUTE EOSINOPHILS # (AUTO) 0.1 10^3/uL (0.0-0.6); ABSOLUTE LYMPHOCYTES (AUTO) 0.6 10^3/uL (0.5-4.7); ABSOLUTE MONOCYTES (AUTO) 0.6 10^3/uL (0.1-1.4); ABSOLUTE NEUT (AUTO) 7.3 10^3/uL (1.7-8.2); BASOPHILS % (AUTO) 0.7 % (0-2); EOSINOPHILS % (AUTO) 1.1 % (0-6); HEMATOCRIT 22.9 % (37.9-51.0); LYMPHOCYTES % (AUTO) 6.8 % (13-45); MEAN CORPUSCULAR HEMOGLOBIN 29.3 pg (27.0-33.4); MEAN CORPUSCULAR HGB CONC 34.5 g/dL (32.0-36.0); MEAN CORPUSCULAR VOLUME 85 fl (80-97); MONOCYTES % (AUTO) 7.5 % (3-13); PLATELET COUNT 120 10^3/uL (150-450); RED BLOOD COUNT 2.69 10^6/uL (4.35-5.55); RED CELL DISTRIBUTION WIDTH 17.8 % (11.5-14.0); SEGMENTED NEUTROPHILS % (AUTO) 83.9 % (42-78); TOTAL CELLS COUNTED % (AUTO) 100 %; WHITE BLOOD COUNT 8.6 10^3/uL (4.0-10.5)
[2018-06-14] MEDS: HEPARIN SOD (PORCINE) 5,000 UNIT/ML 1 ML SYRINGE SUBCUT SCH ×3 (05:23→21:56)
[2018-06-14] MEDS: LANSOPRAZOLE 30 MG TAB.RAP.DR PO SCH ×2 (05:24→17:25)
[2018-06-14] MEDS: HALOPERIDOL 5 MG TABLET PO SCH ×3 (05:24→21:54)
[2018-06-14 05:28] LABS: BLOOD UREA NITROGEN 26 mg/dL (7-20); CALCIUM 8.1 mg/dL (8.4-10.2); GLUCOSE 71 mg/dL (75-110); POTASSIUM 4.8 mmol/L (3.6-5.0)
[2018-06-14 05:34] LABS: CARBON DIOXIDE 37 mmol/L (22-30); CHLORIDE 92 mmol/L (98-107); SODIUM 131.8 mmol/L (137-145)
[2018-06-14] MEDS: CARBIDOPA/LEVODOPA 25-250 MG TABLET PO SCH ×3 (05:34→21:57)
[2018-06-14 06:29] LABS: HEMOGLOBIN 7.9 g/dL (13.5-17.0)
[2018-06-14 06:36] LABS: ANION GAP 2 (5-19)
[2018-06-14] MEDS: IPRATROPIUM/ALBUTEROL 0.5-2.5 MG/3 ML AMPUL NEB PRN (07:55)
[2018-06-14] MEDS: METOPROLOL SUCCINATE 25 MG TAB.SR.24H PO SCH ×2 (10:16→21:55)
[2018-06-14] MEDS: FUROSEMIDE 20 MG TABLET PO SCH (10:16)
[2018-06-14] MEDS: LISINOPRIL 5 MG TABLET PO SCH (10:16)
[2018-06-14] MEDS: ASPIRIN 81 MG TABLET, CHEWABLE PO SCH (10:16)
[2018-06-14] MEDS: TIOTROPIUM BROMIDE DPI 5 CAP/KIT (18 MCG/CAP) IH SCH (10:17)
[2018-06-14] MEDS: FLUTICASONE/VILANTEROL 100-25 MCG/DOSE IH SCH (10:17)
[2018-06-14] MEDS: VENLAFAXINE HCL 25 MG TABLET PO SCH ×2 (10:17→21:54)
[2018-06-14] MEDS: VENLAFAXINE HCL 75 MG TABLET PO SCH ×2 (10:18→21:54)
[2018-06-14] MEDS: CALCIUM CARBONATE 500 MG TABLET PO SCH ×2 (10:18→17:25)
[2018-06-14] MEDS ORDERED: NORMAL SALINE 1000 ML 1,000 ML IV ONE (11:00)
--- NOTE | 2018-06-14 11:38 | PDOC PROGRESS REPORT ---
Subjective Progress Note for:: 06/14/18 Subjective:: The patient is an unfortunate 77-year-old gentleman who presented to the hospital 2 weeks ago with a hip fracture sustained at [facility] where he was receiving rehab. His hospitalizations been complicated by sepsis secondary to aspiration pneumonia. The patient overall has not done well but has stabilized to the point that surgery could be considered. Anesthesiology does not wish to have him operated on at this facility due to the fact that he has an EF of 30% with multiple comorbidities. They felt that the procedure was too dangerous and needed to be performed at a tertiary center. I have spoken to [facility] and currently he is on the list. He has been accepted but they indicated that they may not have a bed for the next 48 hours. I am dictating a transfer summary today and hopefully he can get out over the next couple of days. This morning the patient is somewhat hypertensive. He is being given a 1 L f luid bolus. He actually is more awake and alert today than he was yesterday. He was started on scheduled p.o. Haldol 2 mg every 8 hours yesterday seems to be an improvement in his agitation. When I saw the patient this morning he answers questions appropriately. He knows that he is in the hospital and he knows his name. He actually remembered that he came here in an ambulance from breaking his hip. He still however is quite confused. It was difficult to get a good review of systems out of the patient but he states he is comfortable. Yesterday I had a long discussion with the patient's daughter and . We discussed goals of care. I have told her my concerns that he is not going to do well no matter what we do. This is his third hospitalization since the first of the year where he has been treated for aspiration pneumonia. The family does admit that he was mostly bedbound before the start of this year and that he had worsening memory issues at home. They are fairly adamant however that he is going to be healed and will be able to participate with rehab if we can get the hip repaired. They would like to pursue transfer to a tertiary center and they do not wish to stop aggressively treating the patient. We discussed a possible transition to a DO NOT RESUSCITATE however they would like everything done at this time because they really believe that he is going to improve. Their wishes were honored and I spoke to the transfer center yesterday and he will be transf erred as soon as a bed becomes available. Reason For Visit: SEPSIS, PNA, LEFT HIP FRACTURE Physical Exam Vital Signs: Temp Pulse Resp BP Pulse Ox 97.4 F 80 20 97/54 L 94 06/14/18 08:16 06/14/18 08:16 06/14/18 08:00 06/14/18 08:16 06/14/18 08:10 Intake & Output 06/13/18 06/14/18 06/15/18 06:59 06:59 06:59 Intake Total 1182 634 Output Total 800 925 Balance 382 -291 Weight 84.4 kg 87.7 kg General appearance: PRESENT: disheveled, other - He is much more calm today. He is awake alert and oriented x2 Head exam: PRESENT: atraumatic, other - Bitemporal muscle wasting Eye exam: PRESENT: conjunctiva pink, EOMI, PERRLA. ABSENT: scleral icterus Mouth exam: PRESENT: dry mucosa Respiratory exam: PRESENT: clear to auscultation vickie. ABSENT: rales, rhonchi, wheezes Cardiovascular exam: PRESENT: RRR. ABSENT: diastolic murmur, rubs, systolic murmur GI/Abdominal exam: PRESENT: normal bowel sounds, soft. ABSENT: distended, guarding, mass, organolmegaly, rebound, tenderness Rectal exam: PRESENT: deferred Extremities exam: PRESENT: full ROM. ABSENT: calf tenderness, clubbing, pedal edema Neurological exam: PRESENT: alert, awake, oriented to person, oriented to place, oriented to situation. ABSENT: oriented to time Psychiatric exam: PRESENT: appropriate affect, normal mood. ABSENT: homicidal ideation, suicidal ideation Skin exam: PRESENT: dry, intact, warm. ABSENT: cyanosis, rash Results Laboratory Results: 06/14/18 04:00 06/14/18 04:00 06/14/18 06/14/18 04:00 04:00 WBC 8.6 RBC 2.69 L Hgb 7.9 L Hct 22.9 L MCV 85 MCH 29.3 MCHC 34.5 RDW 17.8 H Plt Count 120 L Seg Neutrophils % 83.9 H Lymphocytes % 6.8 L Monocytes % 7.5 Eosinophils % 1.1 Basophils % 0.7 Absolute Neutrophils 7.3 Absolute Lymphocytes 0.6 Absolute Monocytes 0.6 Absolute Eosinophils 0.1 Absolute Basophils 0.1 Sodium 131.8 L Potassium 4.8 Chloride 92 L Carbon Dioxide 37 H Anion Gap 2 L BUN 26 H Creatinine 0.89 Est GFR ( Amer) > 60 Est GFR (Non-Af Amer) > 60 Glucose 71 L Calcium 8.1 L Magnesium 2.4 H 05/31/18 05/31/18 03:20 03:20 Creatine Kinase 134 CK-MB (CK-2) 1.23 Troponin I 0.038 Impressions: KUB X-Ray 05/30/18 00:00 IMPRESSION: No acute findings. Right femoral line. Cervical Spine CT 05/30/18 15:49 IMPRESSION: Mild degenerative disc disease and spondylosis. No acute finding. Head CT 05/30/18 15:49 IMPRESSION: Mild involutional changes of aging with no acute intracranial imaging finding. 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 EVIDENCE OF ACUTE STROKE: NO. Abdomen/Pelvis CT 05/30/18 22:44 IMPRESSION: Tiny nodular opacities particularly within the right lower lobe, likely due to an infectious/inflammatory process. Small left pleural effusion. Cholelithiasis. Mildly displaced and comminuted left intertrochanteric fracture. TECHNICAL DOCUMENTATION: Quality ID # 436: Final reports with documentation of one or more dose reduction techniques (e.g., Automated exposure control, adjustment of the mA and/or kV according to patient size, use of iterative reconstruction technique) copyright 2010 [employer]- All Rights Reserved Chest CT 05/30/18 22:44 IMPRESSION: Tiny nodular opacities particularly within the right lower lobe, likely due to an infectious/inflammatory process. Small left pleural effusion. Cholelithiasis. Mildly displaced and comminuted left intertrochanteric fracture. TECHNICAL DOCUMENTATION: Quality ID # 436: Final reports with documentation of one or more dose reduction techniques (e.g., Automated exposure control, adjustment of the mA and/or kV according to patient size, use of iterative reconstruction technique) copyright 2010 [employer]- All Rights Reserved Guidance Fluoroscopy 05/31/18 00:00 IMPRESSION: Lumbar puncture under fluoroscopy. No immediate complication. Lumbar Puncture 05/31/18 00:00 IMPRESSION: Lumbar puncture under fluoroscopy. No immediate complication. Chest/Abdomen CTA 06/04/18 00:00 IMPRESSION: Marked increase in the left pleural effusion. New right pleural effusion. No pulmonary emboli. Gallstones. Thoracentesis Ultrasound 06/05/18 00:00 IMPRESSION: SUCCESSFUL THORACENTESIS USING ULTRASOUND GUIDANCE. Chest X-Ray 06/10/18 07:00 IMPRESSION: Residual small effusions. No pneumothorax. Assessment & Plan - Diagnosis (1) Aspiration pneumonia Is this a current diagnosis for this admission?: Yes Plan: He is completed a course of antibiotic therapy. He is at high risk of recurrent aspiration. This morning he is somewhat hypotensive but I believe he is just simply dehydrated. No evidence of recurrent infection at this point. (2) Sepsis Is this a current diagnosis for this admission?: Yes Plan: Manifested by markedly leukocytosis, hypotension, lactic acidosis, encephalopathy and evidence of pneumonia. His sepsis symptoms have resolved with treatment. (3) Acute respiratory failure Is this a current diagnosis for this admission?: Yes Plan: Secondary to aspiration pneumonia. He is still requiring oxygen. At high risk of recurrent aspiration events. (4) Acute encephalopathy Is this a current diagnosis for this admission?: Yes Plan: Much improved since yesterday. Continue scheduled low-dose Haldol. His acute encephalopathy is multifactorial secondary to sepsis, hypoxia and prolonged hospitalization in the setting of probable dementia. (5) Closed left hip fracture Qualifiers: Encounter type: initial encounter Qualified Code(s): S72.002A - Fracture of unspecified part of neck of left femur, initial encounter for closed fracture Is this a current diagnosis for this admission?: Yes Plan: I have spoken to [facility]. He has been accepted under the hospitalist service by Dr. Alegria. Orthopedic surgery, Dr. Mcgovern has agreed to perform his surgery. They have indicated that it likely will be 48 hours before they will have a bed available. I will dictate a transfer summary today. (6) Tremor Is this a current diagnosis for this admission?: Yes Plan: It is documented that the patient has Parkinson's disease and he does take Sinemet. However the family adamantly denies that he has Parkinson's disease. They also state however that he has never been worked up by a neurologist. (7) Pleural effusion, left Is this a current diagnosis for this admission?: Yes Plan: Status post thoracentesis. This will likely recur as he does have underlying heart failure. (8) Dysphagia Qualifiers: Dysphagia type: unspecified Qualified Code(s): R13.10 - Dysphagia, unspecified Is this a current diagnosis for this admission?: Yes Plan: Currently on a regular diet. I believe he has issues that come and go. I would not be surprised if he does not have aspiration when he is acutely confused (9) Chronic systolic CHF (congestive heart failure) Is this a current diagnosis for this admission?: Yes Plan: At this point he appears to be fairly euvolemic. He has an EF of 30% per echocardiogram performed during this hospitalization. He is on low-dose metoprolol and lisinopril as well as a statin medication. (10) Chronic atrial fibrillation Is this a current diagnosis for this admission?: Yes Plan: Stable. Currently not on any anticoagulation. (11) Iron deficiency anemia Is this a current diagnosis for this admission?: Yes Plan: His hemoglobin is stable (12) Depression Is this a current diagnosis for this admission?: Yes Plan: Continue Effexor (13) CAD (coronary artery disease) Is this a current diagnosis for this admission?: Yes Plan: He has had multiple heart attacks in the past with interventions and stents. Currently on statin medication, metoprolol and lisinopril as well as a baby aspirin. (14) Stage 3 skin ulcer of sacral region Is this a current diagnosis for this admission?: Yes Plan: According to the nursing staff he now has a stage III sacral decubitus ulcer. I did not examine this today due to the pain he has from his hip fracture. We will get surgery to evaluate and see whether this needs debriding if we do not get him out of the hospital in the next couple of days. I will try to get into look at this when they clean him. (15) Thrombocytopenia Is this a current diagnosis for this admission?: Yes Plan: Secondary to sepsis and acute illness. Stable. (16) Hyponatremia Is this a current diagnosis for this admission?: Yes Plan: Likely due to his acute illness. Stable. (17) Hyperkalemia Is this a current diagnosis for this admission?: Yes Plan: Resolved (18) Hypophosphatemia Is this a current diagnosis for this admission?: Yes Plan: Repleted. He will have a level drawn tomorrow (19) Hypoalbuminemia Is this a current diagnosis for this admission?: Yes Plan: I reviewed the dietitian notes. Continue supplements and good p.o. intake as tolerated. He does not quite meet the criteria for severe protein calorie malnutrition although he certainly looks quite malnourished. (20) Full code status Is this a current diagnosis for this admission?: Yes - Time Time Spent with patient: 35 or more minutes - Inpatient Certification Medical Necessity: Other - Inpatient hospitalization remains necessary. This patient has a fractured hip and requires transfer to a tertiary center for surgical repair. Hopefully he will get a bed in the next 48 hours.
--- NOTE | 2018-06-14 11:58 | PDOC TRANSFER SUMMARY ---
General Admission Date/PCP: 05/31/18 01:22 ROCK BE DO Admission Date: 05/31/18 Transfer Date: 06/14/18 - He will be transferred when a bed becomes available Accepting Facility: [facility] Accepting Physician: Dr Alegria Resuscitation Status: Full Code - Transfer Diagnosis (1) Aspiration pneumonia Is this a current diagnosis for this admission?: Yes Diagnosis Summary: He has completed a course of treatment. No further aspiration events. (2) Sepsis Is this a current diagnosis for this admission?: Yes Diagnosis Summary: Present on admission manifested by leukocytosis, hypotension, encephalopathy, lactic acidosis and evidence of pneumonia. Resolved (3) Acute respiratory failure Is this a current diagnosis for this admission?: Yes Diagnosis Summary: Secondary to aspiration pneumonia as well as cardiac issues. He has had several MIs with stents placed. He also has an EF of 30%.. He is still requiring some oxygen and this may be his new baseline. (4) Acute encephalopathy Is this a current diagnosis for this admission?: Yes (5) Closed left hip fracture Is this a current diagnosis for this admission?: Yes Diagnosis Summary: Anesthesiology at this facility does not feel that it is safe to perform it here as we do not have good specialty support in the event of a complication. He has multiple comorbidities and cardiac issues precluding surgery here. He has been accepted in transfer and will be transported as soon as a bed is found (6) Tremor Is this a current diagnosis for this admission?: Yes Diagnosis Summary: The family states that he does not have Parkinson's disease although his medical records carry this diagnosis. He is on Sinemet. He has never been seen by a neurologist as an outpatient. (7) Pleural effusion, left Is this a current diagnosis for this admission?: Yes Diagnosis Summary: Status post thoracentesis. Unfortunately this could recur due to his underlying heart failure. (8) Dysphagia Is this a current diagnosis for this admission?: Yes Diagnosis Summary: Currently this has improved and he is tolerating a regular diet. I suspect as his mental status waxes and wanes that he has issues with aspiration. He has been admitted 3 times since April and treated for aspiration pneumonia. (9) Chronic systolic CHF (congestive heart failure) Is this a current diagnosis for this admission?: Yes Diagnosis Summary: Echocardiogram performed during this hospitalization reveals an EF of 30%. He is on low-dose metoprolol and lisinopril. (10) Chronic atrial fibrillation Is this a current diagnosis for this admission?: Yes Diagnosis Summary: Stable. Currently not on anticoagulation. (11) Iron deficiency anemia Is this a current diagnosis for this admission?: Yes Diagnosis Summary: Stable (12) Depression Is this a current diagnosis for this admission?: Yes Diagnosis Summary: Continue Effexor (13) CAD (coronary artery disease) Is this a current diagnosis for this admission?: Yes Diagnosis Summary: Continue low-dose aspirin, statin medication, metoprolol and lisinopril (14) Hypotension Is this a current diagnosis for this admission?: Yes Diagnosis Summary: On the day I dictated the summary he was mildly hypotensive this morning. He looks quite dry on exam. He will be given a fluid bolus. No further fluids. He does not look sick or toxic. I believe he just has had poor p.o. intake and is getting dry. 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 They may need to debride this while he is in the operating room. (16) Thrombocytopenia Is this a current diagnosis for this admission?: Yes Diagnosis Summary: Secondary to sepsis and acute illness. Improving (17) Hyponatremia Is this a current diagnosis for this admission?: Yes Diagnosis Summary: Stable. Likely due to his acute illness (18) Hyperkalemia Is this a current diagnosis for this admission?: Yes Diagnosis Summary: Resolved (19) Hypophosphatemia Is this a current diagnosis for this admission?: Yes Diagnosis Summary: Repleted and resolved (20) Hypoalbuminemia Is this a current diagnosis for this admission?: Yes Diagnosis Summary: He does not quite meet the criteria for severe protein calorie malnutrition. Encourage good p.o. intake and supplements. (21) Full code status Is this a current diagnosis for this admission?: Yes - Transfer Medications Home Medications: Atorvastatin Calcium [Lipitor 40 mg Tablet] 40 mg PO QHS 05/31/18 Lisinopril [Prinivil 2.5 mg Tablet] 2.5 mg PO DAILY 05/31/18 Loratadine [Claritin 10 mg Tablet] 10 mg PO DAILY 05/31/18 Venlafaxine HCl [Effexor] 100 mg PO Q12 02/27/19 Transfer Medications: Current Medications Acetaminophen (Tylenol 650 Mg Supp) 650 mg AK Q4HP PRN PRN Reason: FOR PAIN OR TEMP Stop: 06/30/18 00:55 Last Admin: 05/31/18 16:17 Dose: 650 mg Documented by: Al Hydrox/Mg Hydrox/Simethicone (Maalox Plus Susp 30 Udcup) 30 ml PO Q6HP PRN PRN Reason: HEARTBURN Stop: 06/30/18 00:55 Last Admin: 06/10/18 19:45 Dose: 30 ml Documented by: Albuterol/Ipratropium (Duoneb 3 Ml Ampul) 3 ml NEB RTQ6HP PRN PRN Reason: SHORTNESS OF BREATH Stop: 07/12/18 21:55 Last Admin: 06/14/18 07:55 Dose: 3 ml Documented by: Aspirin (Aspirin 81 Mg Chewable Tablet) 81 mg PO DAILY [facility] Stop: 06/30/18 09:59 Last Admin: 06/14/18 10:16 Dose: 81 mg Documented by: Atorvastatin Calcium (Lipitor 40 Mg Tablet) 40 mg PO QHS DANAY Stop: 06/30/18 21:59 Last Admin: 06/13/18 22:03 Dose: 40 mg Documented by: Calcium Carbonate (Os-Sherman 500 Mg Tablet (Oyster-Shell)) 500 mg PO BID [facility] Stop: 07/06/18 17:59 Last Admin: 06/14/18 10:18 Dose: 500 mg Documented by: Carbidopa/Levodopa (Sinemet 25-250 Mg Tablet) 1 tab PO Q8 DANAY Stop: 06/30/18 07:59 Last Admin: 06/14/18 05:34 Dose: 1 tab Documented by: Dextrose (Dextrose Inj 50% Syringe (25 Gm/50 Ml)) 12.5 gm IV PRN PRN; Protocol PRN Reason: FOR BG 50-69 IN ALERT PATIENT Stop: 07/08/18 07:28 Last Admin: 06/08/18 12:06 Dose: 12.5 gm Documented by: Dextrose (Dextrose Inj 50% Syringe (25 Gm/50 Ml)) 25 gm IV PRN PRN; Protocol PRN Reason: See Label Comments Stop: 07/08/18 07:28 Fluticasone/Vilanterol (Breo 100-25 Mcg Ellipta 14 Dose/Dpi) 1 inh IH DAILY DANAY Stop: 07/13/18 09:59 Last Admin: 06/14/18 10:17 Dose: 2 puff Documented by: Furosemide (Lasix 20 Mg Tablet) 20 mg PO DAILY DANAY Stop: 07/12/18 09:59 Last Admin: 06/14/18 10:16 Dose: 20 mg Documented by: Glucagon (Glucagen Inj 1 Mg Vial) 1 mg SUBCUT PRN PRN; Protocol PRN Reason: Evaluate for BG < 70 Stop: 07/08/18 07:28 Glucose (Glutose 40% Gel 15 Gm Tube) 15 gm PO PRN PRN; Protocol PRN Reason: For BG 50-69 in Alert Patient Stop: 07/08/18 07:28 Glucose (Glutose 40% Gel 15 Gm Tube) 30 gm PO PRN PRN; Protocol PRN Reason: FOR BG < 50 IN ALERT PATIENT Stop: 07/08/18 07:28 Haloperidol (Haldol 5 Mg Tablet) 2.5 mg PO Q8 DANAY Stop: 07/13/18 17:59 Last Admin: 06/14/18 05:24 Dose: 2.5 mg Documented by: Haloperidol Lactate (Haldol 5 Mg/Ml Inj 1 Ml Vial) 2 mg IV Q4HP PRN PRN Reason: RESTLESSNESS/AGITATION Stop: 06/30/18 09:03 Last Admin: 06/13/18 19:54 Dose: 2 mg Documented by: Heparin Sodium (Porcine) (Heparin Inj 5,000 Units/Ml 1 Ml Syringe) 5,000 unit SUBCUT Q8 DANAY Stop: 07/04/18 21:59 Last Admin: 06/14/18 05:23 Dose: 5,000 unit Documented by: Ketorolac Tromethamine (Toradol Inj/Pf 30 Mg/1 Ml Sdv) 15 mg IV Q6HP PRN PRN Reason: FOR BREAKTHROUGH PAIN Stop: 06/17/18 16:21 Last Admin: 06/13/18 16:36 Dose: 15 mg Documented by: Lansoprazole (Prevacid 30 Mg Odt Tablet) 30 mg PO BID@0600,1700 [facility] Stop: 06/30/18 05:59 Last Admin: 06/14/18 05:24 Dose: 30 mg Documented by: Lisinopril (Prinivil 5 Mg Tablet) 2.5 mg PO DAILY [facility] Stop: 07/13/18 09:59 Last Admin: 06/14/18 10:16 Dose: Not Given Documented by: Magnesium Hydroxide (Milk Of Magnesia 30 Ml Udcup) 30 ml PO HSP PRN PRN Reason: FOR CONSTIPATION Stop: 06/30/18 00:55 Metoprolol Succinate (Toprol Xl 25 Mg Tab.Sr) 12.5 mg PO Q12 DANAY Stop: 07/04/18 21:59 Last Admin: 06/14/18 10:16 Dose: 12.5 mg Documented by: Ondansetron HCl (Zofran Inj/Pf 4 Mg/2 Ml Sdv) 4 mg IV Q8HP PRN PRN Reason: FOR NAUSEA/VOMITING Stop: 06/30/18 00:55 Ropinirole HCl (Requip 0.25 Mg Tablet) 0.25 mg PO QHS DANAY Stop: 06/30/18 21:59 Last Admin: 06/13/18 22:03 Dose: 0.25 mg Documented by: Tiotropium [place] (Spiriva Handihaler 5 Cap/Kit (18 Mcg/Cap)) 1 cap IH DAILY DANAY Stop: 07/13/18 09:59 Last Admin: 06/14/18 10:17 Dose: 1 cap Documented by: Trazodone HCl (Desyrel 50 Mg Tablet) 50 mg PO QHS DANAY Stop: 06/30/18 21:59 Last Admin: 06/13/18 22:03 Dose: 50 mg Documented by: Venlafaxine HCl (Effexor 25 Mg Tablet) 25 mg PO Q12 DANAY Stop: 07/05/18 21:59 Last Admin: 06/14/18 10:17 Dose: 25 mg Documented by: Venlafaxine HCl (Effexor 75 Mg Tablet) 75 mg PO Q12 DANAY Stop: 07/05/18 21:59 Last Admin: 06/14/18 10:18 Dose: 75 mg Documented by: - Allergies Allergies/Adverse Reactions: No Known Allergies Allergy (Verified 02/11/12 14:25) - Diet/Activity Discharge Diet: Regular Discharge Activity: Bedrest, Other - Per hospital policy. At this point he is bedbound and not ambulating due to his hip fracture Hospital Course Hospital Course: The patient is an extremely unfortunate 77-year-old gentleman who was admitted to the hospital 2 weeks ago after sustaining a fall at his [facility] facility where he was undergoing rehab. He had a left comminuted intertrochanteric mildly displaced fracture. Unfortunately at the time of admission he was found to have evidence of sepsis as well as aspiration pneumonia. He was admitted to the hospital and treated aggressively with IV antibiotics. He has been acutely encephalopathic and overall has not done well. He did have an echocardiogram performed which revealed an EF of 30%. Patient has had multiple MIs and has known coronary artery disease status post multiple interventions in the past. The family admits that he was basically bedbound going into the first of the year. He has been treated 3 times for aspiration pneumonia since the first of the year. At this point he seems to be swallowing appropriately and currently is on a regular diet. However I suspect his waxing and waning mental status is the cause for his recurrent aspiration. Overall the patient sepsis has improved. The family is quite adamant that they want to have the hip repaired. He was evaluated and our anesthesiologist does not feel comfortable performing this procedure at our facility where we have very little in the way of backup should there be a complication. The patient's family has been talked to at length by multiple providers regarding the fact that he is not doing well and that even if we fix his hip we are still going to have issues with recurrent pneumonias and his whole overall situation is quite poor. He has developed a decubitus ulcer, currently stage III. This is not been looked at by general surgery at this time but may need some debridement down the road. In spite of extensive conversations the family would like to continue with aggressive care. They also would like for him to remain a full code in spite of the fact that his prognosis is quite poor. For palliative purposes I think we all agree that if he could get his hip repaired he would be more comfortable. Yesterday I reached out to [facility] and Dr. Alegria has graciously agreed to accept this patient in transfer. Dr. Mcgovern from the orthopedic service has agreed to perform the surgery. However their facility is full and they do not believe they are going to get a bed for at least 48 hours and he has been placed on the list. I have informed the family and they are quite pleased. Certainly further discussions need to be had with this family down the road. They do understand that he is a poor surgical candidate and there is there could be complications during or after the surgery. He will be transferred to their facility as soon as a bed is found. Physical Exam Vital Signs: Temp Pulse Resp BP Pulse Ox 97.4 F 80 20 97/54 L 94 06/14/18 08:16 06/14/18 08:16 06/14/18 08:00 06/14/18 08:16 06/14/18 08:10 Intake & Output 06/13/18 06/14/18 06/15/18 06:59 06:59 06:59 Intake Total 1182 634 Output Total 800 925 Balance 382 -291 Weight 84.4 kg 87.7 kg General appearance: PRESENT: other - Somewhat confused, chronically ill- appearing gentleman. Head exam: PRESENT: atraumatic, other - He has bitemporal muscle wasting Eye exam: PRESENT: conjunctiva pink, EOMI, PERRLA. ABSENT: scleral icterus Ear exam: PRESENT: normal external ear exam Mouth exam: PRESENT: dry mucosa, tongue midline Neck exam: ABSENT: carotid bruit, JVD, lymphadenopathy, thyromegaly Respiratory exam: PRESENT: clear to auscultation vickie. ABSENT: rales, rhonchi, wheezes Cardiovascular exam: PRESENT: RRR. ABSENT: diastolic murmur, rubs, systolic murmur Pulses: PRESENT: normal dorsalis pedis pul GI/Abdominal exam: PRESENT: normal bowel sounds, soft. ABSENT: distended, guarding, mass, organolmegaly, rebound, tenderness Rectal exam: PRESENT: deferred Extremities exam: PRESENT: full ROM. ABSENT: calf tenderness, clubbing, pedal edema Musculoskeletal exam: ABSENT: ambulatory Neurological exam: PRESENT: alert, awake, oriented to person, oriented to place, oriented to situation. ABSENT: oriented to time Psychiatric exam: PRESENT: appropriate affect, normal mood. ABSENT: homicidal ideation, suicidal ideation Skin exam: PRESENT: dry, intact, warm. ABSENT: cyanosis, rash Results Laboratory Results: 06/14/18 04:00 06/14/18 04:00 06/14/18 06/14/18 04:00 04:00 WBC 8.6 RBC 2.69 L Hgb 7.9 L Hct 22.9 L MCV 85 MCH 29.3 MCHC 34.5 RDW 17.8 H Plt Count 120 L Seg Neutrophils % 83.9 H Lymphocytes % 6.8 L Monocytes % 7.5 Eosinophils % 1.1 Basophils % 0.7 Absolute Neutrophils 7.3 Absolute Lymphocytes 0.6 Absolute Monocytes 0.6 Absolute Eosinophils 0.1 Absolute Basophils 0.1 Sodium 131.8 L Potassium 4.8 Chloride 92 L Carbon Dioxide 37 H Anion Gap 2 L BUN 26 H Creatinine 0.89 Est GFR ( Amer) > 60 Est GFR (Non-Af Amer) > 60 Glucose 71 L Calcium 8.1 L Magnesium 2.4 H 05/31/18 05/31/18 03:20 03:20 Creatine Kinase 134 CK-MB (CK-2) 1.23 Troponin I 0.038 Impressions: KUB X-Ray 05/30/18 00:00 IMPRESSION: No acute findings. Right femoral line. Cervical Spine CT 05/30/18 15:49 IMPRESSION: Mild degenerative disc disease and spondylosis. No acute finding. Head CT 05/30/18 15:49 IMPRESSION: Mild involutional changes of aging with no acute intracranial imaging finding. 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 EVIDENCE OF ACUTE STROKE: NO. Abdomen/Pelvis CT 05/30/18 22:44 IMPRESSION: Tiny nodular opacities particularly within the right lower lobe, likely due to an infectious/inflammatory process. Small left pleural effusion. Cholelithiasis. Mildly displaced and comminuted left intertrochanteric fracture. TECHNICAL DOCUMENTATION: Quality ID # 436: Final reports with documentation of one or more dose reduction techniques (e.g., Automated exposure control, adjustment of the mA and/or kV according to patient size, use of iterative reconstruction technique) copyright 2010 [employer]- All Rights Reserved Chest CT 05/30/18 22:44 IMPRESSION: Tiny nodular opacities particularly within the right lower lobe, likely due to an infectious/inflammatory process. Small left pleural effusion. Cholelithiasis. Mildly displaced and comminuted left intertrochanteric fracture. TECHNICAL DOCUMENTATION: Quality ID # 436: Final reports with documentation of one or more dose reduction techniques (e.g., Automated exposure control, adjustment of the mA and/or kV according to patient size, use of iterative reconstruction technique) copyright 2010 [employer]- All Rights Reserved Guidance Fluoroscopy 05/31/18 00:00 IMPRESSION: Lumbar puncture under fluoroscopy. No immediate complication. Lumbar Puncture 05/31/18 00:00 IMPRESSION: Lumbar puncture under fluoroscopy. No immediate complication. Chest/Abdomen CTA 06/04/18 00:00 IMPRESSION: Marked increase in the left pleural effusion. New right pleural effusion. No pulmonary emboli. Gallstones. Thoracentesis Ultrasound 06/05/18 00:00 IMPRESSION: SUCCESSFUL THORACENTESIS USING ULTRASOUND GUIDANCE. Chest X-Ray 06/10/18 07:00 IMPRESSION: Residual small effusions. No pneumothorax. Plan Discharge Plan: He will be transferred to [facility] as soon as a bed is found Time Spent: Greater than 30 Minutes
--- NOTE | 2018-06-14 12:01 | Progress Note ---
Provider Note Provider Note: Date: 06/13/2018 Advance care planning note: Present at meeting: and daughter Diagnosis: Failure to thrive and recurrent aspiration pneumonia in the setting of a hip fracture Discussion: I sat down and spoke at length to the patient and the family. At this point they adamantly want the patient to be transferred to a tertiary facility for repair of his hip fracture. Our anesthesiologist does not feel comfortable performing it at this facility. At this point the patient is doing quite poorly. He has had 3 hospitalizations for aspiration pneumonia since the first of the year. I did talk at length that I believe the patient is reaching the end of his life. In spite of repairing his hip he likely is going to be at risk for further aspiration events. He does have cognitive deficits well before the beginning of this year. He also was bedbound as well. He is developing a decubitus ulcer and not eating or drinking well. We discussed CODE STATUS. At this point they would adamantly like him to remain a full code. They want aggressive measures and believe that if we can get the hip repaired that he would be much better and he could go to rehabilitation and get back on his feet. At this point I do believe it is reasonable to get the hip repaired for palliative purposes. Certainly rehab could be tried again but I do not believe this patient is going to do well. Their wishes will be honored and he will be transferred to a tertiary center as soon as a bed is found Time spent: 25 minutes
[2018-06-14] MEDS: ATORVASTATIN CALCIUM 40 MG TABLET PO SCH (21:54)
[2018-06-14] MEDS: TRAZODONE HCL 50 MG TABLET PO SCH (21:55)
[2018-06-14] MEDS: ROPINIROLE HCL 0.25 MG TABLET PO SCH (21:55)
[2018-06-15 02:30] VITALS: BP 112/84
== END 2018-06-15 02:15 | disposition short-term general hospital (02) | DRG 871 ==
LOC: ER 15:39 → EH 05-31 01:22 → 3N 06-01 04:37
PROVIDERS: ADMIT Internal Medicine; ATTEND Internal Medicine
PROC: 009U3ZX Drainage of Spinal Canal, Percutaneous Approach, Diagnostic (ICD-10-PCS; 2018-05-31)
PROC: B01BZZZ Fluoroscopy of Spinal Cord (ICD-10-PCS; 2018-05-31)
PROC: 06HY33Z Insertion of Infusion Device into Lower Vein, Percutaneous Approach (ICD-10-PCS; 2018-05-31)
PROC: 30253N1 (ICD-10-PCS; principal; 2018-06-01)
PROC: 0W9B3ZZ Drainage of Left Pleural Cavity, Percutaneous Approach (ICD-10-PCS; 2018-06-05)
DX: A41.9 Sepsis, unspecified organism (principal); S72.142A Displaced intertrochanteric fracture of left femur, initial encounter for closed fracture; L89.153 Pressure ulcer of sacral region, stage 3; J69.0 Pneumonitis due to inhalation of food and vomit; J96.00 Acute respiratory failure, unspecified whether with hypoxia or hypercapnia; G93.40 Encephalopathy, unspecified; J90 Pleural effusion, not elsewhere classified; I50.22 Chronic systolic (congestive) heart failure; E87.1 Hypo-osmolality and hyponatremia; L89.152 Pressure ulcer of sacral region, stage 2; I95.9 Hypotension, unspecified; D69.6 Thrombocytopenia, unspecified; E87.5 Hyperkalemia; E88.09 Other disorders of plasma-protein metabolism, not elsewhere classified; J44.9 Chronic obstructive pulmonary disease, unspecified; G20 Parkinson's disease; I48.2 Chronic atrial fibrillation; I11.0 Hypertensive heart disease with heart failure; R13.10 Dysphagia, unspecified; E83.39 Other disorders of phosphorus metabolism; D50.0 Iron deficiency anemia secondary to blood loss (chronic); F03.90 Unspecified dementia, unspecified severity, without behavioral disturbance, psychotic disturbance, mood disturbance, and anxiety; F32.9 Major depressive disorder, single episode, unspecified; I25.10 Atherosclerotic heart disease of native coronary artery without angina pectoris; W19.XXXA Unspecified fall, initial encounter; E78.5 Hyperlipidemia, unspecified; G47.30 Sleep apnea, unspecified; F41.9 Anxiety disorder, unspecified; I73.9 Peripheral vascular disease, unspecified; I25.2 Old myocardial infarction; Z95.5 Presence of coronary angioplasty implant and graft; Z79.82 Long term (current) use of aspirin; Z74.01 Bed confinement status; Y92.89 Other specified places as the place of occurrence of the external cause; Z87.01 Personal history of pneumonia (recurrent); Z85.038 Personal history of other malignant neoplasm of large intestine; Z87.891 Personal history of nicotine dependence
CPT/HCPCS: 32555; 36415; 36430; 62270; 70450; 71045; 71260; 71275; 72125; 74018; 74177; 77003; 80048; 80053; 80069; 80202; 81001; 82040; 82272; 82330; 82550; 82553; 82607; 82728; 82746; 82945; 82947; 82962; 83540; 83550; 83605; 83615; 83735; 84134; 84157; 84166; 84484; 85025; 85027; 85045; 85610; 85730; 86850; 86900; 86901; 86920; 87040; 87070; 87075; 87086; 87205; 87804; 88305; 89050; 93005; 93010; 93306; 94799; C1751; C1769; J0133; J0610; J0692; J0696; J1100; J1630; J1644; J1756; J1885; J1940; J2060; J2185; J3010; J3370; J3490; J7030; J7060; J7120; J7620; P9016